=== PATIENT | female | born 1975 | race African-American/Black ===

== ENCOUNTER 2017-05-20 14:59 | Emergency (ER) | payer SELFPAY ==
[2017-05-20] MEDS ORDERED: ISOVUE-370 76%-LOCM 1 ML ONE (15:03)
--- NOTE | 2017-05-20 15:35 | RAD ---
PORTABLE CHEST ONE VIEW: 05/20/2017 3:17 p.m. HISTORY: Nausea and vomiting. COMPARISON: 02/28/2017 FINDINGS: The heart is normal. The lungs are well expanded without focal areas of consolidation, pneumothorax , or pleural effusions. IMPRESSION: No radiographic evidence of acute cardiopulmonary process. POS: [facility]
[2017-05-20] MEDS ORDERED: Morphine 2 MG/ML SYRINGE ONE (15:59)
[2017-05-20] MEDS ORDERED: Ondansetron HCl/PF 4 MG/2 ML Vial ONE (15:59)
[2017-05-20] MEDS ORDERED: hydrALAZINE 20 MG/ML VIAL ONE ×2 (16:07→16:56)
[2017-05-20 16:39] LABS: #Basophils 0.1 thou/uL (0.0-0.2); #Lymphocytes 4.2 thou/uL (1.20-3.40); #Monocytes 0.9 thou/uL (0.11-0.59); #Neutrophils 6.8 thou/uL (1.40-6.50); %Basophils 0.6 % (0.0-1.0); %Eosinophils 0.3 % (0.0-10.0); %Lymphocytes 35.2 % (21.0-51.0); %Monocytes 7.7 % (0.0-10.0); Hematocrit 35.5 % (36.0-47.0); Mean Platelet Volume 6.6 fL (7.4-10.4); Red Blood Cell (RBC) Count 3.92 mill/uL (4.20-5.40)
[2017-05-20 16:48] LABS: PTT 28.3 SEC (22.9-36.1); Prothrombin Time 13.8 SEC (12.0-14.7)
[2017-05-20 16:49] LABS: Anion Gap 8 mmol/L (-14-95); T. Carbon Dioxide 22.7 mmol/L (1.0-85.0); pH (Venous) 7.473 (7.35-7.45); vO2 Saturation-calc 86.6 % (0.0-100.0)
[2017-05-20 17:04] LABS: ALT (SGPT) 14 U/L (8-55); AST (SGOT) 14 U/L (5-34); Alkaline Phosphatase 82 U/L (40-150); Anion Gap 15 mmol/L (10-20); BUN (Urea Nitrogen) 27 mg/dL (7.0-18.7); Bilirubin, Total 0.4 mg/dL (0.2-1.2); CK (CPK) 146 U/L (29-168); Calc. Creatinine Clearance 0 mL/min (70-130); Calcium 9.2 mg/dL (7.8-10.44); Carbon Dioxide 21 mmol/L (22-29); Chloride 102 mmol/L (98-107); Estimated GFR-MDRD 51; Globulin 3.6 g/dL (2.4-3.5); Lipase 10 U/L (8-78); Protein, Total 7.2 g/dL (6.0-8.3)
[2017-05-20 17:08] LABS: Troponin I Less than 0.010 ng/mL (< 0.028)
[2017-05-20] MEDS ORDERED: niCARdipine 20MG In NaCl 0 MG/0 ML BAG ONE (17:08)
--- NOTE | 2017-05-20 17:41 | CT ---
CONTRAST ENHANCED CT IMAGES OF THE ABDOMEN AND PELVIS: History: Nausea and vomiting for three days with abdominal pain and right sided flank pain. Technique: Contrast enhanced CT images of the abdomen and pelvis were obtained. Unfortunately oral c ontrast was not given. This does decrease the sensitivity for detection of pathology. FINDINGS: The lung bases are unremarkable. No evidence of free intraperitoneal air is seen. The liver and spleen are unremarkable. The gallbladder has been surgically removed. The pancreas is unremarkable. Adrenal glands are unremarkable. Kidneys are unremarkable with no evidence of calculi. No evidence of hydroureteronephrosis is seen. No dilated loops of small bowel is seen. No definite evidence of colonic obstruction seen. A normal appendix is visualized and is unremarkabl e. IMPRESSION: 1. Unremarkable contrast enhanced CT images of the abdomen and pelvis. POS: [facility]
[2017-05-20 17:46] LABS: Bilirubin Negative (Negative); Blood, Urine Small (Negative); Glucose, Urine (Dipstick) 250 mg/dL (Negative); Ketone, Urine Trace mg/dL (Negative); Nitrite Negative (Negative); Protein, Urine (Dipstick) 300 mg/dL (Neg-Trace); Urobilinogen 0.2 mg/dL (0.2-1.0)
[2017-05-20 17:47] LABS: Bacteria/HPF 1+ HPF (None Seen); Hyaline Casts/LPF 4-6 HYALINE CAST LPF (0-3 Hyaline)
[2017-05-20 18:02] LABS: Renal Epithelial None Seen HPF (0-3); Transitional Epithelial NONE SEEN HPF (0-3)
== END 2017-05-20 18:24 | disposition home or self-care (01) ==
LOC: ERS 14:59
DX: R10.11 Right upper quadrant pain (principal); E86.0 Dehydration; I10 Essential (primary) hypertension; R11.2 Nausea with vomiting, unspecified; I48.91 Unspecified atrial fibrillation; E11.9 Type 2 diabetes mellitus without complications; Z79.4 Long term (current) use of insulin; Z79.899 Other long term (current) drug therapy
CPT/HCPCS: 36415; 36416; 71010; 74177; 80053; 81003; 81015; 82010; 82330; 82553; 82803; 83690; 83880; 84484; 84703; 85025; 85610; 85730; 93005; 96361; 96374; 96375; 96376; J0360; J2270; J2405

== ENCOUNTER 2017-05-22 07:02 | Inpatient (IN) | payer SELFPAY ==
[2017-05-22] MEDS ORDERED: HYDROcodone/Acetaminophen 10/325 mg Tablet ONE (07:25)
[2017-05-22] MEDS ORDERED: Ondansetron ODT 8 MG TAB ONE (07:25)
[2017-05-22 08:01] LABS: #Basophils 0.1 thou/uL (0.0-0.2); #Eosinphils 0.1 thou/uL (0.0-0.7); #Lymphocytes 4.6 thou/uL (1.20-3.40); #Neutrophils 4.8 thou/uL (1.40-6.50); %Basophils 1.1 % (0.0-1.0); %Eosinophils 1.1 % (0.0-10.0); %Lymphocytes 43.4 % (21.0-51.0); %Monocytes 8.9 % (0.0-10.0); Hematocrit 36.3 % (36.0-47.0); Mean Platelet Volume 6.8 fL (7.4-10.4); Red Blood Cell (RBC) Count 3.92 mill/uL (4.20-5.40); White Blood Cell (WBC) Count 10.6 thou/uL (4.8-10.8)
[2017-05-22 08:25] LABS: ALT (SGPT) 13 U/L (8-55); AST (SGOT) 16 U/L (5-34); Alkaline Phosphatase 78 U/L (40-150); Anion Gap 15 mmol/L (10-20); BUN (Urea Nitrogen) 29 mg/dL (7.0-18.7); Bilirubin, Total 0.4 mg/dL (0.2-1.2); Calc. Creatinine Clearance 0 mL/min (70-130); Calcium 9.1 mg/dL (7.8-10.44); Carbon Dioxide 23 mmol/L (22-29); Chloride 100 mmol/L (98-107); Estimated GFR-MDRD 38; Globulin 3.9 g/dL (2.4-3.5); Lipase 12 U/L (8-78); Protein, Total 7.5 g/dL (6.0-8.3)
--- NOTE | 2017-05-22 08:55 | ULT ---
BILATERAL RENAL ULTRASOUND: History: Right flank pain. FINDINGS: The right kidney measures 11.2 cm in length and the left kidney measures 10.7 cm in length. No focal mass or hydronephrosis is seen on either side. Cortical echogenicity and thickness are normal. No s hadowing calculi are noted. The urinary bladder is unremarkable. IMPRESSION: Unremarkable exam. POS: [facility]
[2017-05-22 09:52] LABS: Bilirubin Negative (Negative); Blood, Urine Moderate (Negative); Glucose, Urine (Dipstick) 100 mg/dL (Negative); Ketone, Urine 15 mg/dL (Negative); Nitrite Negative (Negative); Protein, Urine (Dipstick) 300 mg/dL (Neg-Trace); Urobilinogen 0.2 mg/dL (0.2-1.0)
[2017-05-22 09:54] LABS: Bacteria/HPF 3+ HPF (None Seen)
[2017-05-22 10:10] LABS: Hyaline Casts/LPF NONE SEEN LPF (0-3 Hyaline); Renal Epithelial None Seen HPF (0-3); Transitional Epithelial NONE SEEN HPF (0-3)
[2017-05-22] MEDS ORDERED: Morphine 2 MG/ML SYRINGE ONE (10:30)
[2017-05-22] MEDS ORDERED: cefTRIAXone\\ROCEPHIN 1 GM VIAL ONE (10:30)
[2017-05-22] MEDS ORDERED: Sodium Chloride 0.9% 100 ML ONE (10:34)
[2017-05-22] MEDS ORDERED: Amlodipine 5 MG TAB ONE ×2 (11:27)
[2017-05-22] MEDS ORDERED: Lisinopril 10 MG TAB ONE (11:27)
[2017-05-22] MEDS ORDERED: Metoprolol Tartrate 50 MG TAB ONE (11:27)
[2017-05-22] MEDS ORDERED: Labetalol HCl 100 MG/20 ML VIAL ONE (12:09)
[2017-05-22] MEDS ORDERED: cloNIDine 0.1 MG TAB ONE (12:09)
--- NOTE | 2017-05-22 12:31 | CON ---
DATE OF CONSULTATION: 05/22/2017 NEPHROLOGY CONSULTATION REASON FOR CONSULTATION: Elevated creatinine. HISTORY OF PRESENT ILLNESS: This is a 42-year-old female followed by Dr. Pal, presented to the hospital with elevated creatinine and possible UTI. The patient had a CAT scan with contrast two da ys ago. Her baseline creatinine on 05/20/2017 was 1.3 and is 1.8 today. The patient last had an ep isode of acute kidney injury in February with a creatinine of 1.2, baseline in 2014 was 0.9. The martita ent denies headache, numbness, tingling or weakness. PAST MEDICAL HISTORY: Significant for hypertension, diabetes mellitus, obesity, atrial fibrillation , ablation, cholecystectomy, and . HOME MEDICATIONS: List reviewed. HOSPITAL MEDICATIONS: List reviewed. ALLERGIES: Reviewed. REVIEW OF SYSTEMS: A 15-point review of systems was performed and negative except positives noted a lianet. GENERAL: Weakness- HEAD: Headache- NECK: No swelling or lumps. NOSE: No epistaxis or discharge. EYES: No diplopia or pain. 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 NEUROPSYCHIATRIC SYSTEMS: No suicidal ideation. No ideation. SKIN: Denies any rash or ulcer. CONSTITUTIONAL: No fever or chills. PHYSICAL EXAMINATION: GENERAL: The patient is awake and alert. VITAL SIGNS: Afebrile, pulse 75, breathing at 16, blood pressure was 200/120, pulse 90. OBJECTIVE: See above. GENERAL APPEARANCE AND MENTAL STATUS: Fair. HEAD/NECK: Normocephalic. Atraumatic. EYES: EOMI. No deformity. EARS: Clear. No ulcers. NOSE: Intact. No lesions. MOUTH: Clear. No discharge. THROAT: Clear. No exudate. LUNGS: Clear. No crackles. CARDIAC: S1, S2. No rub. ABDOMEN: Benign. BS+. GENITALIA/RECTUM: Alicia absent. BACK/EXTREMITIES: Edema 0+ Ulcer- NEUROLOGICAL: Alert and motor intact. SKIN: Rash- Bruise- LYMPHATICS: Edema- Ulcer- LABORATORY DATA: Creatinine is 1.8. ASSESSMENT AND PLAN: 1. Acute kidney injury with chronic kidney disease, most likely due to hypertension as well as cont rast. Continue gentle hydration. 2. Hypertension. Start home medication and follow the blood pressure closely. The patient needs t o be monitored in the ICU. 3. Anemia, stable. 4. Medications based on glomerular filtration rate are appropriate. 5. Proteinuria, likely because of diabetic nephropathy. The patient will need close followup.
[2017-05-22] MEDS ORDERED: niCARdipine 20MG In NaCl 0 MG/0 ML BAG ONE (13:15)
[2017-05-22] MEDS ORDERED: niCARdipine HCl 50 MG in Sodium Chloride 0.9% 250 ML 230 ML IVPB SCH (13:15)
[2017-05-22] MEDS ORDERED: niCARdipine 20MG In NaCl 20 MG/200 ML BAG ONE (13:16)
[2017-05-22] MEDS ORDERED: Ondansetron HCl/PF 4 MG/2 ML Vial IVP PRN (14:06)
[2017-05-22] MEDS ORDERED: Metoclopramide HCl 10 MG/2 ML VIAL IVP PRN (14:06)
[2017-05-22] MEDS ORDERED: Dextrose 50% Abboject 50 ML SYRINGE SLOW IVP PRN (14:06)
[2017-05-22] MEDS ORDERED: Acetaminophen 325 MG TAB PO PRN (14:06)
[2017-05-22] MEDS ORDERED: Sodium Chloride 0.65% Nasal 44 ML BOT EA NARE PRN (14:06)
[2017-05-22] MEDS ORDERED: Senokot 8.6 MG TAB PO PRN (14:06)
[2017-05-22] MEDS ORDERED: Loperamide HCl 2 MG CAP PO PRN (14:06)
[2017-05-22] MEDS ORDERED: Ondansetron ODT 4 MG TAB PO PRN (14:06)
[2017-05-22] MEDS ORDERED: Zolpidem Tartrate 5 MG TAB PO PRN (14:06)
[2017-05-22] MEDS ORDERED: cloNIDine 0.1 MG TAB PO PRN (14:06)
[2017-05-22] MEDS ORDERED: Dextrose 5% in Water 1,000 ML IV PRN (14:06)
[2017-05-22] MEDS ORDERED: Mag-Al 1200 mg/1200 mg/30 ML UDCUP PO PRN (14:06)
[2017-05-22] MEDS ORDERED: Insulin Regular 300 UNITS/3 ML VIAL SC PRN (14:06)
[2017-05-22] MEDS ORDERED: Labetalol HCl 100 MG/20 ML VIAL SLOW IVP PRN (14:06)
[2017-05-22] MEDS ORDERED: Diabetic Tussin 200 MG/10 ML UDCUP PO PRN (14:06)
[2017-05-22] MEDS ORDERED: Milk Of Magnesia 30 ML UDCUP PO PRN (14:06)
[2017-05-22] MEDS ORDERED: Chloraseptic Spray 180 ml Bottle PO PRN (14:06)
[2017-05-22] MEDS ORDERED: Eucerin (Mineral Oil/Petrolatum,White) 30 gm Jar TOP PRN (14:06)
[2017-05-22] MEDS ORDERED: hydrALAZINE 20 MG/ML VIAL SLOW IVP PRN (14:06)
[2017-05-22] MEDS ORDERED: Artificial Tear Sol 15 ML BOT EA EYE PRN (14:06)
[2017-05-22] MEDS ORDERED: Dextrose 5 % And 0.9 % NaCl 1,000 ML IV SCH (14:06)
[2017-05-22 14:18] VITALS: BMI 41.5
--- NOTE | 2017-05-22 14:30 | HP ---
PRIMARY CARE PHYSICIAN: Dr. Viviana Perez. REASON FOR ADMISSION: Hypertensive emergency, nausea, vomiting. HISTORY OF PRESENT ILLNESS: A 42-year-old -[place] female with a history of diabetes type 2, hypertension and morbid obesity who came to the emergency room with complaint of right flank pain. The patient reports that this pain is ongoing for about a month. The patient came to the emergency room 2 days ago. At that time, CT abdomen and pelvis stone protocol was done, which was negative for any acute process. The patient had leukocytosis and abnormal urinalysis and that is why CT of the abdomen and pelvis was done. The patient denies by herself any UTI symptoms. She denies any dysuria, hematuria or increased frequency, but she has right flank pain which is getting worse with movement. She denies any back pain. She denies any fever or chills. She denies any chest pain, palpitation or shortness of breath. Patient reports that for the last 4 days, she is not able to keep anything down because of nausea and vomiting and she was not taking any blood pressure medication. Patient was on several blood pressure medications, but about a week ago she stopped taking lisinopril because that was causing a swelling of her face. Initially when this patient came to emergency room, her blood pressure was 142/ 93 and pulse was 129. The patient was given IV fluid and after that blood pressure, the patient's blood pressure was spiking to maximum 224/150. This patient was not able to be managed at the medical floor and IMCU as well and that is why we decided to keep this patient in ICU for Cardene drip and better blood pressure control and symptoms control. The patient was seen in the emergency room. At that time, patient's pain was about 5/10 in intensity, but with no movement, the patient's pain was about 2/ 10 in intensity. Today in the emergency room, patient had renal ultrasound which was negative for any acute process. Dr. Rendon, supervisor electronics processing already evaluated this patient. PAST MEDICAL HISTORY: Diabetes type 2, hypertension, diabetes, gastroparesis, paroxysmal atrial fibrillation, obesity, dyslipidemia. PAST SURGICAL HISTORY: Uterine ablation, cholecystectomy, x2. PAST PSYCHIATRIC HISTORY: Reviewed and negative. SOCIAL HISTORY: Patient lives at home with the family. No history of tobacco, alcohol or illicit drug abuse. FAMILY HISTORY: Diabetes, hypertension runs among several family members. No strong family history of stroke or coronary artery disease. ALLERGIES: Patient reports that nowadays LISINOPRIL makes her swelling of face. EMERGENCY ROOM COURSE: Patient has received lisinopril 5 mg, Cardene drip started, labetalol 20 mg IV push, clonidine 0.1 mg, metoprolol tartrate 100 mg, amlodipine 10 mg, patient has received 2 liters of IV fluids, Rocephin 1 gram, morphine 4 mg, [place] 10, and Zofran 8 mg. CURRENT HOME MEDICATIONS: The patient is taking metoprolol tartrate 100 mg twice daily, NovoLog insulin 15 units subQ b.i.d., Lipitor 40 mg p.o. at bedtime , metformin 500 mg p.o. b.i.d., amlodipine 10 mg p.o. daily, lisinopril 5 mg p.o. daily (this medication, the patient stopped taking about a week ago), Tylenol #3 one or two tablets q.4 hourly p.r.n., Zofran 4 mg q.6 hourly p.r.n. REVIEW OF SYSTEMS: The following complete review of systems was negative, unless otherwise mentioned in the HPI or below: Constitutional: Weight loss or gain, ability to conduct usual activities. Skin: Rash, itching. Eyes: Double vision, pain. ENT/Mouth: Nose bleeding, neck stiffness, pain, tenderness. Cardiovascular: Palpitations, dyspnea on exertion, orthopnea. Respiratory: Shortness of breath, wheezing, cough, hemoptysis, fever or night sweats. Gastrointestinal: Poor appetite, abdominal pain, heartburn, nausea, vomiting, constipation, or diarrhea. Genitourinary: Urgency, frequency, dysuria, nocturia. Musculoskeletal: Pain, swelling. Neurologic/Psychiatric: Anxiety, depression. Allergy/Immunologic: Skin rash, bleeding tendency. Please see my HPI for pertinent positives and negatives. All other review of system reviewed and negative except as mentioned in the HPI. PHYSICAL EXAMINATION: VITAL SIGNS: Most recent vital signs, blood pressure 224/150, pulse 114, respiratory rate 16, temperature 98.7, saturation 100% on room air. Weight 108.86 kilograms. GENERAL: Patient is currently alert, awake, no obvious acute distress. HEAD: Normocephalic, atraumatic. EYES: Pupils round, reactive to light. Extraocular muscles intact. ENT: Oropharynx within normal limits. Moist mucous membranes. No oral lesions. No pharyngeal erythema, no exudate. NECK: Supple. Range of motion is normal. No meningeal signs of irritation. LUNGS: Clear to auscultation without any rhonchi or rales. CARDIAC: S1, S2 regular without any murmur. ABDOMEN: Soft, bowel sounds present, nontender, nondistended. No organomegaly , no mass, no suprapubic tenderness. BACK: Unremarkable. CVA tenderness noted on the right side. EXTREMITIES: Upper extremity: Passive movement of all joints are normal. Lower extremity, no edema. Good peripheral pulsation. SKIN: No skin rash. HEMATOLOGICAL: No lymphadenopathy. PSYCHIATRIC: Normal affect. SIGNIFICANT LABS: monitoring engineer showing normal sinus rhythm. Renal ultrasound is unremarkable. CT abdomen and pelvis stone protocol was done a couple of days ago that was negative for any obstructive uropathy. CBC: WBC 10.6, hemoglobin 11.9, platelets 387. BMP: Sodium 134, potassium 3.8 , chloride 100, carbon dioxide 23, BUN 29, creatinine 1.80, glucose 138, calcium 9.1. LFT: AST 16, ALT 13, alkaline phosphatase 78, albumin 3.6, lipase 12. Urinalysis suggestive of urinary tract infection. ASSESSMENT AND PLAN/IMPRESSION: 1. Hypertensive emergency. This patient has very difficult to manage blood pressure on regular floor and that is why we will keep this patient in ICU for close monitoring. We tried to control blood pressure in the emergency room, but her blood pressure was keep rising. At this point, we will start Cardene drip and will also use hydralazine, labetalol, and clonidine on a p.r.n. basis, and will titrate Cardene drip in CCU whenever blood pressure is well controlled without Cardene drip for a few hours, then we will consider transferring her to medical floor. 2. Acute on chronic kidney failure. This patient's creatinine is elevated from 1.37-1.80. The patient has received 2 liters of fluid. I will continue with dextrose with NS at 50 mL per hour given patient is not able to keep anything down and she has ketosis. Dr. Rendon already evaluated this patient and renal ultrasound result is unremarkable. Most likely, the patient's blood pressure is high because of uncontrolled hypertension as well as volume depletion. 3. Nausea, vomiting, most likely related with underlying urinary tract infection versus diabetes gastroparesis. At this point, we will continue with symptomatic treatment with Zofran and Reglan 10 mg IV q.6 hourly p.r.n. and Protonix 40 mg IV daily. 4. Flank pain, etiology uncertain, but could be related with urinary tract infection. We will control her pain with morphine 4 mg IV q.4 hourly p.r.n. for pain. 5. Urinary tract infection. We will continue with Rocephin 1 gram q.24 hours. 6. Diabetes type 2. We will continue with insulin as per sliding scale protocol. Diabetic diet will be given when patient tolerates p.o. intake. 7. Dehydration ketosis and that is why we will continue with dextrose with NS at 50 mL per hour. 8. Dyslipidemia. We will continue Lipitor 40 mg p.o. at bedtime. 9. Morbid obesity. Dietary education given, weight loss education given. Healthy lifestyle measures discussed with the patient. 10. Deep venous thrombosis prophylaxis, Lovenox 40 mg subQ daily. 11. Gastrointestinal prophylaxis, Protonix 40 mg IV daily. 12. Code status: The patient is FULL CODE. She does not have any surrogate decision maker. Disposition plan based on clinical course. [facility]
[2017-05-22] MEDS ORDERED: Sodium Chloride 0.9% 1,000 ML IV SCH (15:30)
[2017-05-22] MEDS ORDERED: Carvedilol 6.25 MG TAB PO SCH ×2 (15:30→17:00)
--- NOTE | 2017-05-22 16:18 | CON ---
DATE OF CONSULTATION: 05/22/2017 SERVICE: Pulmonary Medicine. REASON FOR CONSULTATION: ICU patient. HISTORY OF PRESENT ILLNESS: The patient is a 42-year-old -[place] female with past medical history significant for hypertension. Roughly 1 week ago, she was around a niece who ended up with an upper respiratory tract infection with a lot of congestion in the face. A week later, the patien t started having nausea, vomiting, and diarrhea. She was unable to keep down her home p.o. blood pr essure medications. Whenever she cannot take her blood pressure medication, she will have rebound h ypertension. She currently denies any fevers or chills. This was all getting better, but then she came to the emergency department primarily because of back discomfort. This has been going on and o ff for several months. More recently over the past 2-3 weeks, it has become more constant. Otherwi se, she was in her usual state of health. She has no chest discomfort, difficulty breathing, belly discomfort. PAST MEDICAL HISTORY: 1. Type 2 diabetes mellitus. 2. Gastroparesis. 3. Hypertension. 4. Dyslipidemia. 5. Type 2 diabetes mellitus. 6. Morbid obesity. 7. Paroxysmal atrial fibrillation. PAST SURGICAL HISTORY: 1. Ablation of the uterus. 2. Cholecystectomy. 3. section x2. SOCIAL HISTORY: Negative for tobacco, alcohol or illicit drug use presently. She lives at home wit h her family. She has no exposure to chemicals, dust asbestos or tuberculosis. FAMILY HISTORY: Noncontributory. ALLERGIES: LISINOPRIL causes her face to swell. MEDICATIONS: List of her inpatient medications was reviewed. Multiple updates were made. REVIEW OF SYSTEMS: General, head, eyes, nose, throat, cardiovascular, respiratory, GI, , musculos keletal, neurologic and skin is negative except as mentioned in the HPI. PHYSICAL EXAMINATION: VITAL SIGNS: Afebrile, pulse 89, blood pressure 166/97, respirations 18, and saturation 98% on room air. GENERAL: Patient is awake, alert, in no apparent distress. LUNGS: Excellent air entry with no prolonged expiratory phase, wheezing, rhonchi or crackles. HEART: Normal rate, regular. ABDOMEN: Soft, nontender, nondistended, bowel sounds positive. She does not have any costovertebra l angle tenderness. With palpation over the paraspinous muscles on the right, she has extraordinary discomfort that is reproducible. I do not feel any masses and certainly no erythema or heat to thi s region. MUSCULOSKELETAL: No cyanosis or clubbing. No pitting in the bilateral lower extremities. NEUROLOGIC: Grossly normal. LABORATORY DATA: WBC 10.6 with normal differential. Hemoglobin 11.9 and stable, platelets 387,000. INR 1.0. A pH 7.47, pCO2 29, pO2 of 48. Creatinine up trending to 1.80. BUN 29 and gently up tr ending. Basic metabolic profile is otherwise unremarkable. Sodium is 134. Ionized calcium is low. Cardiac enzymes x1 were negative 2 days ago. Liver function studies are unremarkable. Urine preg zara was negative 2 days ago. BNP 72. Urinalysis is positive for RBCs, WBCs, squamous and 3+ bact eria. That being said, leukocyte esterase and nitrites are both negative. Blood was moderate. Ket ones are positive as are glucose and protein. IMAGIN. CT of the abdomen and pelvis recently demonstrated no evidence of acute intra-abdominal process or lower lung issue. 2. Ultrasound of the kidneys demonstrates no evidence of hydronephrosis or stones. 3. Chest x-ray from 05/20/2017 demonstrates no acute cardiopulmonary abnormality. Low lung volumes are evident. ASSESSMENT: 1. Hypertension. 2. Gastroenteritis. 3. Dehydration. 4. Acute kidney injury. 5. Type 2 diabetes mellitus. 6. Gastroparesis. PLAN: We will continue her p.o. medications and provide her with nausea medicine if needed. Once s he is back on her home p.o. medications, we will transition her off of the blood pressure drip. We have absolutely no evidence of pyelonephritis. The urinalysis had negative leukocyte esterase and n itrites. Furthermore, likely this was supposed to be clean-catch urine and it was not a catheterize d specimen. There is significant amount of squamous epithelial cells, likely suggesting this is con tamination. We will follow up on the culture results, but for the time being, I am going to discont inue antibiotics. I will continue to follow while the patient remains in this location.
[2017-05-22] MEDS: HYDROcodone/Acetaminophen 5/325 mg Tablet PO PRN (18:37)
[2017-05-22] MEDS ORDERED: FLU VACC QS2017-18 36 mo. & older 0.5 ML SYRINGE IM ONE (21:00)
[2017-05-22] MEDS: Atorvastatin Calcium 40 MG TAB PO SCH (21:55)
[2017-05-23] MEDS: HYDROcodone/Acetaminophen 5/325 mg Tablet PO PRN (04:39)
[2017-05-23 07:16] LABS: Anion Gap 10 mmol/L (10-20); BUN (Urea Nitrogen) 25 mg/dL (7.0-18.7); Calc. Creatinine Clearance 112 mL/min (70-130); Calcium 8.3 mg/dL (7.8-10.44); Carbon Dioxide 25 mmol/L (22-29); Chloride 105 mmol/L (98-107); Estimated GFR-MDRD 63
[2017-05-23] MEDS: Amlodipine 10 MG TAB PO SCH (08:25)
[2017-05-23] MEDS: hydrALAZINE 25 MG TAB PO SCH ×3 (08:25→20:17)
[2017-05-23] MEDS: Carvedilol 25 MG TAB PO SCH ×2 (08:25→16:36)
[2017-05-23] MEDS: Enoxaparin Sodium 40 MG/0.4 ML SYRINGE SC SCH (08:26)
[2017-05-23] MEDS ORDERED: Pantoprazole 40 MG VIAL IVP SCH (09:00)
--- NOTE | 2017-05-23 10:10 | PDOC.PN ---
- Subjective Encounter Start Date: 05/23/17 Encounter Start Time: 08:30 -: old records requested/rev Pt seen and examined, chart reviewed in its entirety. This is my first visit with this patient. No F/C, no N/V/d/c at present, nauseated earlier. PT with back pain, wants to get out of bed. right paraspinous muscles tender, no CVA tenderness, no hematuria or dysuria 10 point ROS performed and neg for all systems except as above - Objective Resuscitation Status: Resuscitation Status FULL:Full Resuscitation MAR Reviewed: Yes Vital Signs & Weight: Vital Signs (12 hours) Temp Pulse Resp BP Pulse Ox 05/23/17 08:25 102 H 168/91 H 05/23/17 08:00 98.2 F 102 H 14 95 05/23/17 07:38 184/99 H 05/23/17 06:27 172/89 H 05/23/17 04:00 98.3 F 05/23/17 00:00 97.9 F Most Recent Monitor Data Heart Rate from ECG 93 NIBP 172/89 NIBP BP-Mean 122 Respiration from ECG 15 SpO2 95 I&O: 05/22/17 05/23/17 05/24/17 06:59 06:59 06:59 Intake Total 2690 Output Total 950 Balance 1740 Result Diagrams: 05/22/17 07:47 05/23/17 06:34 Additional Labs: Accuchecks 05/23/17 05/22/17 05/22/17 06:29 21:55 17:31 POC Glucose 135 H 205 H 144 H Radiology Reviewed by me: Yes EKG Reviewed by me: Yes Phys Exam - Physical Examination Constitutional: NAD HEENT: PERRLA, moist MMs, sclera anicteric, oral pharynx no lesions Neck: no nodes, no JVD, supple, full ROM Respiratory: no wheezing, no rales, no rhonchi, clear to auscultation bilateral Cardiovascular: RRR, no significant murmur, no rub Gastrointestinal: soft, non-tender, no distention, positive bowel sounds Musculoskeletal: no edema, pulses present Neurological: non-focal, normal sensation, moves all 4 limbs right lumbar paraspinous muscles tender, reprodices back pain Lymphatic: no nodes Psychiatric: normal affect, A&O x 3 Skin: no rash, normal turgor, cap refill <2 seconds Dx/Plan (1) Essential hypertension Code(s): I10 - ESSENTIAL (PRIMARY) HYPERTENSION Status: Acute Comment: increase Coreg to 25 BID, added in po hydralazine, ok to trnasfer to medical floor (2) Hyperglycemia due to type 2 diabetes mellitus Code(s): E11.65 - TYPE 2 DIABETES MELLITUS WITH HYPERGLYCEMIA Status: Chronic Qualifiers: 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 Not Pyelonephritis - Plan cont current plan of care, PT/OT, out of bed/ambulate * .
[2017-05-23] MEDS ORDERED: Ibuprofen 600 MG TAB PO PRN (10:13)
--- NOTE | 2017-05-23 10:15 | PRG ---
DATE OF SERVICE: 05/23/2017 SERVICE: Pulmonary Medicine INTERVAL HISTORY: The patient continues to have back discomfort. Otherwise, there has been no inte rval change in her condition. She only received 1 dose of p.r.n. blood pressure medications overnig ht. She currently denies any fevers, chills, nausea, vomiting, diarrhea or chest discomfort. PHYSICAL EXAMINATION: VITAL SIGNS: Afebrile, pulse 102, blood pressure 168/91, respirations 14, saturation 95% on room ai r. GENERAL: The patient is awake, alert, no apparent distress. LUNGS: Excellent air entry with no prolonged expiratory phase, wheezing, rhonchi or crackles. HEART: Normal rate, regular. ABDOMEN: Soft, nontender, nondistended. Bowel sounds positive. MUSCULOSKELETAL: No cyanosis or clubbing. No pitting in the bilateral lower extremities. NEUROLOGIC: Grossly nonfocal. LABORATORY DATA: Creatinine 1.15 and down trending. Basic metabolic profile is otherwise unremarka ble. Beta hydroxybutyrate acid is 0.65. Urine culture is negative to date. ASSESSMENT: 1. Hypertension. 2. Gastroenteritis, resolved. 3. Dehydration, resolved. 4. Acute kidney injury, resolved. 5. Type 2 diabetes mellitus. 6. Gastroparesis. PLAN: The patient can be transitioned to the medical unit. I will continue to follow for 1 additio day. The back pain is chronic based on what the patient is suggesting, it is just a little wors e than usual. She has right-sided paraspinous tenderness. This is likely a muscular issue. I suggested to the patient that if it continues to bother her she should seek medical attention in t he outpatient setting from her primary care physician.
[2017-05-23] MEDS: Insulin Regular 300 UNITS/3 ML VIAL SC PRN ×2 (10:40→17:03)
--- NOTE | 2017-05-23 10:40 | PRG ---
DATE OF SERVICE: 05/23/2017 SUBJECTIVE: A 42-year-old female being seen for acute kidney injury. The patient denies any nausea , vomiting or chest pain. PHYSICAL EXAMINATION: GENERAL: Patient is awake, alert. VITAL SIGNS: Afebrile, pulse 70, breathing at 16, blood pressure 125/70. GENERAL APPEARANCE AND MENTAL STATUS: Fair. HEAD/NECK: Normocephalic. Atraumatic. EYES: EOMI. No deformity. EARS: Clear. No ulcers. NOSE: Intact. No lesions. MOUTH: Clear. No discharge. THROAT: Clear. No exudate. LUNGS: Clear. No crackles. CARDIAC: S1, S2. No rub. ABDOMEN: Benign. BS+. GENITALIA/RECTUM: Alicia absent. BACK/EXTREMITIES: Edema 0+ Ulcer- NEUROLOGICAL: Alert and motor intact. SKIN: Rash- Bruise- LYMPHATICS: Edema- Ulcer- LABORATORY DATA: Show creatinine 1.1. ASSESSMENT AND RECOMMENDATIONS: 1. Acute kidney injury, improved. 2. Hypertension, improved. 3. Anemia, stable. 4. Chronic kidney disease stage 3, stable. No indication for dialysis. I will sign off on this pa tient. Please reconsult as needed.
[2017-05-23] MEDS ORDERED: cefTRIAXone\\ROCEPHIN 1 GM, Admixture Fee 1 EACH in Sodium Chloride 0.9% 100 ML IVPB SCH (11:00)
[2017-05-23 12:05] LABS: #Eosinphils 0.2 thou/uL (0.0-0.7); #Monocytes 0.5 thou/uL (0.11-0.59); #Neutrophils 4.4 thou/uL (1.40-6.50); %Basophils 0.5 % (0.0-1.0); %Eosinophils 1.9 % (0.0-10.0); %Lymphocytes 37.3 % (21.0-51.0); %Monocytes 5.9 % (0.0-10.0); Hematocrit 31.2 % (36.0-47.0); Mean Platelet Volume 6.9 fL (7.4-10.4); Red Blood Cell (RBC) Count 3.38 mill/uL (4.20-5.40); White Blood Cell (WBC) Count 8.1 thou/uL (4.8-10.8)
[2017-05-23 12:21] LABS: Anion Gap 10 mmol/L (10-20); BUN (Urea Nitrogen) 27 mg/dL (7.0-18.7); Calc. Creatinine Clearance 84 mL/min (70-130); Carbon Dioxide 26 mmol/L (22-29); Chloride 103 mmol/L (98-107); Estimated GFR-MDRD 46
[2017-05-23] MEDS: Cyclobenzaprine 10 MG TAB PO SCH ×2 (16:33→20:17)
[2017-05-23] MEDS: Atorvastatin Calcium 40 MG TAB PO SCH (20:17)
[2017-05-24 09:02] LABS: Hematocrit 31.6 % (36.0-47.0); Mean Platelet Volume 6.8 fL (7.4-10.4); Red Blood Cell (RBC) Count 3.42 mill/uL (4.20-5.40); White Blood Cell (WBC) Count 9.1 thou/uL (4.8-10.8)
[2017-05-24 09:22] LABS: Anion Gap 15 mmol/L (10-20); BUN (Urea Nitrogen) 37 mg/dL (7.0-18.7); Calc. Creatinine Clearance 69 mL/min (70-130); Calcium 7.8 mg/dL (7.8-10.44); Carbon Dioxide 19 mmol/L (22-29); Chloride 104 mmol/L (98-107); Estimated GFR-MDRD 36
[2017-05-24 09:26] LABS: Neutrophil 27 % (42-75)
[2017-05-24] MEDS: Carvedilol 25 MG TAB PO SCH (09:39)
[2017-05-24] MEDS: Cyclobenzaprine 10 MG TAB PO SCH (09:39)
[2017-05-24] MEDS: hydrALAZINE 25 MG TAB PO SCH (09:39)
[2017-05-24] MEDS: Amlodipine 10 MG TAB PO SCH (09:39)
[2017-05-24] MEDS: Enoxaparin Sodium 40 MG/0.4 ML SYRINGE SC SCH (09:40)
--- NOTE | 2017-05-24 10:12 | PRG ---
DATE OF SERVICE: 05/24/2017 SERVICE: Pulmonary Medicine. INTERVAL HISTORY: The patient is doing fine from a respiratory standpoint. She is on room air. Th e muscle relaxers helped her back discomfort to a very significant degree. She denies any current f tenisha, chills, nausea, vomiting or diarrhea. She has no headache. Otherwise, she has returned to [facility] usual state of health and hoping to go home today. PHYSICAL EXAMINATION: VITAL SIGNS: Afebrile, pulse 98, blood pressure 136/86, respirations 16, saturation 99% on room air . GENERAL: Patient is awake, alert, in no apparent distress. LUNGS: Excellent air entry with no prolonged expiratory phase, wheezing, rhonchi or crackles. HEART: Normal rate, regular. ABDOMEN: Soft, nontender, nondistended. Bowel sounds positive. No costovertebral angle tenderness . She has point tenderness over the right paraspinous muscles. This is much improved. GENITOURINARY: No Alicia. NEUROLOGIC: Grossly nonfocal. MUSCULOSKELETAL: No cyanosis or clubbing. There is no pitting in the bilateral lower extremities. LABORATORY DATA: WBC 9.1, hemoglobin 10.2, platelets 318,000. Creatinine 1.86 and gently up trendi ng. Basic metabolic profile is otherwise unremarkable. ASSESSMENT: 1. Hypertension without any evidence of end organ damage. 2. Muscular back pain. 3. Gastroenteritis, resolved. 4. Dehydration, improving. 5. Acute kidney injury. 6. Type 2 diabetes mellitus. 7. Gastroparesis. PLAN: At this point, the patient has no further requirements for inpatient Pulmonary or Critical Ca re opinion. Please call if the patient has any deterioration clinically, but otherwise, we will sig n off. From a purely respiratory standpoint, she is stable for transition out of the hospital.
[2017-05-24 10:56] VITALS: BP 117/73; TEMP 97.8
--- NOTE | 2017-05-24 12:15 | DIS ---
PRIMARY CARE PHYSICIAN: Dr. Viviana Perez DATE OF ADMISSION: 05/22/2017 DATE OF DISCHARGE: 05/24/2017 DISCHARGE DISPOSITION: Home. PRIMARY DISCHARGE DIAGNOSES: 1. Hypertensive emergency, improved. 2. Nausea, vomiting controlled. 3. Acute on chronic kidney failure, baseline chronic kidney disease stage 2. 4. Musculoskeletal back pain. 5. Urinary tract infection ruled out. SECONDARY DISCHARGE DIAGNOSES: Diabetes type 2, dyslipidemia, morbid obesity, diabetic gastroparesis, history of paroxysmal atrial fibrillation. PRIMARY PROCEDURE/OPERATION: None. RADIOLOGICAL INVESTIGATION: Renal ultrasound was unremarkable. SIGNIFICANT LABS: WBC 9.1, hemoglobin 10.2, platelets 318. Sodium 133, potassium 4.8, BUN 37, creatinine 1.86, calcium 7.8. LFTs normal. Urinalysis suspected for UTI, beta hydroxybutyrate 0.19. Urine culture negative. DISCHARGE MEDICATIONS: Amlodipine 10 mg p.o. daily, Lipitor 40 mg p.o. at bedtime, Coreg 25 mg p.o. b.i.d., Flexeril 5 mg t.i.d. p.r.n., insulin 70/30, 30 units subcu b.i.d., Reglan 10 mg p.o. t.i.d. p.r.n., Catapres 0.1 mg q.4 hours p.r.n. for blood pressure more than 180, hydralazine 25 mg p.o. t.i.d. CONTRAINDICATIONS: None. CODE STATUS: FULL CODE. INPATIENT CONSULTANTS: Dr. Rendon was consulted while in hospital. Dr. Cedillo was consulted while in hospital. TEST RESULTS PENDING ON DISCHARGE: None. ALLERGIES: No known drug allergy. DISCHARGE PLAN: Post hospital, the patient will follow up with primary care physician and Dr. Rendon as instructed. HOSPITAL COURSE: The patient is a 42-year-old female, who was brought to the emergency room for nausea and vomiting. The patient was not able to keep anything down including medication for the last 3-4 days prior to coming to the hospital. The patient had recently full workup in the emergency room including CT of the abdomen and pelvis and chest x-ray which was unremarkable. During this admission, we did a renal ultrasound that was also normal. The patient was hydrated with IV fluids. She was treated symptomatically in the emergency room. The patient was having very high blood pressure and that is why she required ICU admission. We treated initially with Cardene drip that was discontinued afterwards. The patient's blood pressure was controlled with p.r.n. parenteral medications. During this admission, we adjusted blood pressure medication as above. The patient had acute kidney failure on top of chronic kidney disease stage 3 and we advised her to follow up with Dr. Rendon. This patient offered to stay 1 more day, but she does not want to stay in hospital, but she preferred to follow up with Dr. Rendon after discharge as she already has followup appointment with him as well. Initially, we treated her with Rocephin for a suspected UTI, but her cultures remain negative and antibiotic therapy was discontinued. During this admission, we modified her medication as above. We started Coreg 25 mg b.i.d., hydralazine added and the patient ran out of medication for amlodipine that was given. Overall, this patient is medically stable for discharge. The patient is seen and examined at bedside today. All review of systems reviewed and negative. PHYSICAL EXAMINATION: VITAL SIGNS: Currently, temperature 97.8, pulse 99, respiratory rate 18, saturation 97%, blood pressure 117/73, weight 242 pounds. GENERAL: The patient is currently alert, awake, no acute distress. HEAD: Normocephalic, atraumatic. EYES: Pupils round, reactive to light. Extraocular muscles intact. ENT: Oropharynx within normal limits. Moist mucous membranes. No oral lesions. No pharyngeal erythema and no exudate. NECK: Supple. LUNGS: Clear. CARDIAC: S1, S2 regular without any murmur. ABDOMEN: Soft and benign. EXTREMITIES: No edema. NEUROLOGIC: Nonfocal examination. Total time spent on discharge day 31 minutes MTDD
== END 2017-05-24 11:07 | disposition home or self-care (01) | DRG 305 ==
LOC: ERS 07:02 → CCU 13:51 → T4-A 05-23 15:07
PROVIDERS: ADMIT Internal Medicine; ATTEND Internal Medicine
DX: I16.1 Hypertensive emergency (principal); E11.21 Type 2 diabetes mellitus with diabetic nephropathy; N17.9 Acute kidney failure, unspecified; E11.65 Type 2 diabetes mellitus with hyperglycemia; K31.84 Gastroparesis; N18.3 Chronic kidney disease, stage 3 (moderate); Z68.41 Body mass index [BMI] 40.0-44.9, adult; E11.43 Type 2 diabetes mellitus with diabetic autonomic (poly)neuropathy; I12.9 Hypertensive chronic kidney disease with stage 1 through stage 4 chronic kidney disease, or unspecified chronic kidney disease; E86.0 Dehydration; I48.0 Paroxysmal atrial fibrillation; E11.22 Type 2 diabetes mellitus with diabetic chronic kidney disease; Z79.4 Long term (current) use of insulin; D63.1 Anemia in chronic kidney disease; E66.01 Morbid (severe) obesity due to excess calories; E78.5 Hyperlipidemia, unspecified; K52.9 Noninfective gastroenteritis and colitis, unspecified; M54.9 Dorsalgia, unspecified
CPT/HCPCS: 36415; 36416; 76770; 80048; 80053; 81003; 81015; 82010; 83690; 85025; 87086; 90471; 90682; 96361; 96365; 96375; G0008; J0360; J0696; J1650; J1815; J2270; J2405; J7050; Q2036

== ENCOUNTER 2017-07-13 12:56 | Emergency (ER) | payer MEDICAID, SELFPAY ==
[2017-07-13] MEDS ORDERED: Ondansetron ODT 4 MG TAB ONE (13:06)
[2017-07-13] MEDS ORDERED: Ondansetron HCl/PF 4 MG/2 ML Vial ONE (13:18)
[2017-07-13 13:28] LABS: #Eosinphils 0.1 thou/uL (0.0-0.7); #Lymphocytes 3.5 thou/uL (1.20-3.40); #Monocytes 0.9 thou/uL (0.11-0.59); #Neutrophils 4.1 thou/uL (1.40-6.50); %Basophils 0.4 % (0.0-1.0); %Eosinophils 0.6 % (0.0-10.0); %Lymphocytes 40.5 % (21.0-51.0); %Monocytes 10.4 % (0.0-10.0); Hematocrit 38.1 % (36.0-47.0); Mean Platelet Volume 6.9 fL (7.4-10.4); Red Blood Cell (RBC) Count 4.11 mill/uL (4.20-5.40); White Blood Cell (WBC) Count 8.6 thou/uL (4.8-10.8)
[2017-07-13 14:07] LABS: ALT (SGPT) 18 U/L (8-55); AST (SGOT) 20 U/L (5-34); Alkaline Phosphatase 84 U/L (40-150); Anion Gap 18 mmol/L (10-20); BUN (Urea Nitrogen) 25 mg/dL (7.0-18.7); Bilirubin, Total 0.5 mg/dL (0.2-1.2); Calc. Creatinine Clearance 0 mL/min (70-130); Calcium 8.8 mg/dL (7.8-10.44); Carbon Dioxide 24 mmol/L (22-29); Chloride 96 mmol/L (98-107); Estimated GFR-MDRD 32; Globulin 3.7 g/dL (2.4-3.5); Protein, Total 7.3 g/dL (6.0-8.3)
[2017-07-13] MEDS ORDERED: Acetaminophen 500 MG TAB ONE (14:22)
== END 2017-07-13 16:33 | disposition home or self-care (01) ==
LOC: ERS 12:56
DX: E86.0 Dehydration (principal); E11.9 Type 2 diabetes mellitus without complications; I48.91 Unspecified atrial fibrillation; I10 Essential (primary) hypertension; Z79.84 Long term (current) use of oral hypoglycemic drugs; Z79.82 Long term (current) use of aspirin; Z79.899 Other long term (current) drug therapy
CPT/HCPCS: 80053; 82010; 85025; 96361; 96374; J2405; Q0162

== ENCOUNTER 2017-08-30 18:00 | Observation (INO) | payer OTHER ==
[2017-08-30] MEDS ORDERED: Acetaminophen 500 MG TAB ONE (19:19)
--- NOTE | 2017-08-30 19:26 | RAD ---
TWO VIEWS OF THE CHEST 08/30/17 COMPARISON: 02/02/08. HISTORY: Cough for ten days. FINDINGS: Two views of the chest shows a normal sized cardiomediastinal silhouette. There are patchy opacities in the lungs, more prominent in the bases which were not seen on the prior radiograph. These may repr esent early infiltrates. No pleural effusion is seen. IMPRESSION: Possible bilateral lower lobe early infiltrates. POS: [facility]
[2017-08-30 20:34] LABS: #Basophils 0.1 thou/uL (0.0-0.2); #Eosinphils 0.4 thou/uL (0.0-0.7); #Lymphocytes 3.7 thou/uL (1.20-3.40); #Monocytes 1.1 thou/uL (0.11-0.59); #Neutrophils 5.4 thou/uL (1.40-6.50); %Basophils 1.3 % (0.0-1.0); %Eosinophils 3.3 % (0.0-10.0); %Lymphocytes 34.8 % (21.0-51.0); %Monocytes 10.1 % (0.0-10.0); %Neutrophils 50.4 % (42.0-75.0); Hemoglobin 7.2 g/dL (12.0-16.0); Mean Corpuscular HGB CONC 33.9 g/dL (32.0-36.0); Mean Corpuscular Hemoglobin 29.9 pg (27.0-31.0); Mean Corpuscular Volume 88.2 fl (81.0-99.0); Mean Platelet Volume 6.7 fL (7.4-10.4); Platelet Count 315 thou/uL (130-400); RBC Distribution Width 10.6 % (11.5-14.5); White Blood Cell (WBC) Count 10.7 thou/uL (4.8-10.8)
[2017-08-30 20:59] LABS: ALT (SGPT) 21 U/L (8-55); AST (SGOT) 19 U/L (5-34); Alkaline Phosphatase 111 U/L (40-150); Anion Gap 16 mmol/L (10-20); BUN (Urea Nitrogen) 22 mg/dL (7.0-18.7); Bilirubin, Total 0.4 mg/dL (0.2-1.2); CK (CPK) 282 U/L (29-168); Calc. Creatinine Clearance 0 mL/min (70-130); Calcium 8.6 mg/dL (7.8-10.44); Carbon Dioxide 21 mmol/L (22-29); Chloride 107 mmol/L (98-107); Estimated GFR-MDRD 71; Globulin 3.7 g/dL (2.4-3.5); Glucose 138 mg/dL (70-105); Lipase 12 U/L (8-78); Potassium 4.2 mmol/L (3.5-5.1); Protein, Total 6.7 g/dL (6.0-8.3); Sodium 140 mmol/L (136-145)
[2017-08-30 21:00] LABS: Troponin I Less than 0.010 ng/mL (< 0.028)
[2017-08-30] MEDS ORDERED: Nitroglycerin 2% Ointment 1 INCH/1 GM Packet ONE (21:07)
[2017-08-31 00:11] LABS: Troponin I Less than 0.010 ng/mL (< 0.028)
[2017-08-31] MEDS ORDERED: Acetaminophen 325 MG TAB PO PRN (02:51)
[2017-08-31] MEDS ORDERED: HYDROcodone/Acetaminophen 7.5/325 mg Tablet PO PRN (02:51)
[2017-08-31] MEDS ORDERED: HYDROcodone/Acetaminophen 5/325 mg Tablet PO PRN (02:51)
[2017-08-31] MEDS ORDERED: Ondansetron ODT 4 MG TAB PO PRN (02:51)
[2017-08-31 02:59] LABS: Troponin I 0.015 ng/mL (< 0.028)
[2017-08-31] MEDS ORDERED: HumaLOG 300 UNITS/3 ML VIAL SC PRN (02:59)
[2017-08-31] MEDS ORDERED: Dextrose 5% in Water 1,000 ML IV PRN (02:59)
[2017-08-31] MEDS ORDERED: Dextrose 50% Abboject 50 ML SYRINGE SLOW IVP PRN (02:59)
[2017-08-31] MEDS ORDERED: cefTRIAXone\\ROCEPHIN 1 GM in Sodium Chloride 0.9% 100 ML IVPB SCH (03:00)
--- NOTE | 2017-08-31 03:30 | HP ---
CHIEF COMPLAINT: Fatigue and shortness of breath. HISTORY OF PRESENT ILLNESS: The patient is a 42-year-old female who presents with 3 to 4 days of fat igue, shortness of breath, body aches as well as fevers and chills and a cough. The patient reports having dyspnea on exertion as well. She was seen at an outlying ER and transferred here due to her s ymptoms as well as her low blood count. PAST MEDICAL HISTORY: The patient is significant for atrial fibrillation, type 2 diabetes, hypertens ion, and peripheral neuropathy. PAST SURGICAL HISTORY: The patient has had x2, cholecystectomy, cardiac ablation for atria l fibrillation and uterine ablation due to heavy menstrual cycles. SOCIAL HISTORY: Negative for tobacco or alcohol use. ALLERGIES: No known drug allergies. MEDICATIONS: The patient is currently on amlodipine, cyclobenzaprine, gabapentin, losartan, metformi n, insulin 70/30, metoclopramide, Lipitor, carvedilol, and clonidine. REVIEW OF SYSTEMS: Please see HPI. Rest of 14-point review of systems is negative. PHYSICAL EXAMINATION: VITAL SIGNS: Latest vitals, temperature is 97.9, pulse 91, respirations 18, blood pressure is 137/85 , and patient is satting 97% on room air. GENERAL: The patient is awake, alert, and oriented x3, in no acute distress. HEENT: Pupils round, react to light and accommodation. Extraocular muscles intact. TMs are clear. No erythema in throat. NECK: No JVD, no lymphadenopathy. HEART: Regular rate and rhythm. LUNGS: Clear to auscultation bilaterally. ABDOMEN: Positive bowel sounds. Soft, nontender, nondistended. EXTREMITIES: No clubbing, cyanosis or edema. LABORATORY AND X-RAY DATA: The patient's chest x-ray shows bilateral lower lobe infiltrates. CBC: White count was 10, H and H 7 and 21 with an MCV of 88, platelet count is 315. Sodium is 140, potass ium 4.2, chloride 107, bicarbonate 21, BUN 22, creatinine 1.0 with a glucose of 138. ASSESSMENT AND PLAN: 1. Bilateral lower lobe pneumonias. Continue on azithromycin and Rocephin IV. Continue with sympto m control. 2. Anemia, most likely secondary to her continued heavy periods. We will continue to monitor and tr ansfuse as needed. 3. Type 2 diabetes. Continue on insulin 70/30 with insulin sliding scale. 4. Hypertension. Blood pressure is now mildly elevated and we will restart her outpatient medicatio ns. 5. Code status: The patient is FULL CODE.
[2017-08-31] MEDS: Nitroglycerin 2% Ointment 1 INCH/1 GM Packet TOP SCH ×2 (03:31→09:34)
[2017-08-31] MEDS: cefTRIAXone\\ROCEPHIN 1 GM, Syringe 0.4 ML in Sterile Water 9.6 ML SLOW IVP SCH (04:04)
[2017-08-31] MEDS: Azithromycin 500 MG in Sodium Chloride 0.9% 250 ML 250 ML IVPB SCH (04:05)
[2017-08-31 04:41] LABS: #Eosinphils 0.3 thou/uL (0.0-0.7); #Lymphocytes 3.2 thou/uL (1.20-3.40); #Monocytes 0.9 thou/uL (0.11-0.59); #Neutrophils 3.7 thou/uL (1.40-6.50); %Basophils 0.2 % (0.0-1.0); %Eosinophils 4.2 % (0.0-10.0); %Lymphocytes 39.2 % (21.0-51.0); %Monocytes 11.5 % (0.0-10.0); %Neutrophils 44.9 % (42.0-75.0); Mean Corpuscular Hemoglobin 31.6 pg (27.0-31.0); Mean Corpuscular Volume 93.1 fl (81.0-99.0); Mean Platelet Volume 7.5 fL (7.4-10.4); Platelet Count 279 thou/uL (130-400); RBC Distribution Width 11.3 % (11.5-14.5); Red Blood Cell (RBC) Count 2.83 mill/uL (4.20-5.40); White Blood Cell (WBC) Count 8.2 thou/uL (4.8-10.8)
[2017-08-31 05:04] LABS: Anion Gap 15 mmol/L (10-20); BUN (Urea Nitrogen) 25 mg/dL (7.0-18.7); Calc. Creatinine Clearance 145 mL/min (70-130); Calcium 8.4 mg/dL (7.8-10.44); Carbon Dioxide 20 mmol/L (22-29); Chloride 108 mmol/L (98-107); Estimated GFR-MDRD 64; Glucose 170 mg/dL (70-105); Sodium 139 mmol/L (136-145)
[2017-08-31] MEDS ORDERED: hydrALAZINE 20 MG/ML VIAL SLOW IVP PRN (07:42)
[2017-08-31] MEDS ORDERED: Mag-Al 1200 mg/1200 mg/30 ML UDCUP PO PRN (07:42)
[2017-08-31] MEDS ORDERED: Temazepam 15 MG CAP PO PRN (07:42)
[2017-08-31] MEDS ORDERED: Chloraseptic Spray 180 ml Bottle PO PRN (07:42)
[2017-08-31] MEDS ORDERED: Eucerin (Mineral Oil/Petrolatum,White) 30 gm Jar TOP PRN (07:42)
[2017-08-31] MEDS ORDERED: Milk Of Magnesia 30 ML UDCUP PO PRN (07:42)
[2017-08-31] MEDS ORDERED: Loperamide HCl 2 MG CAP PO PRN (07:42)
[2017-08-31] MEDS ORDERED: Sodium Chloride 0.65% Nasal 44 ML BOT EA NARE PRN (07:42)
[2017-08-31] MEDS ORDERED: Senokot 8.6 MG TAB PO PRN (07:42)
[2017-08-31] MEDS ORDERED: Loratadine 10 MG TAB PO PRN (07:42)
[2017-08-31] MEDS ORDERED: Artificial Tears 18 DROP/0.9 ML EA EYE PRN (07:42)
[2017-08-31] MEDS ORDERED: Famotidine/PF 20 mg/2ml Vial SLOW IVP SCH (09:00)
[2017-08-31] MEDS ORDERED: Aspirin 325 mg Enteric Coated Tablet PO SCH (09:00)
[2017-08-31] MEDS: Insulin NPH/Reg Insulin Hm 300 UNITS/3 ML VIAL SC SCH ×2 (09:32→16:12)
[2017-08-31] MEDS: metFORMIN 500 MG TAB PO SCH ×2 (09:32→16:11)
[2017-08-31] MEDS: cloNIDine 0.1 MG TAB PO SCH ×2 (09:33→20:30)
[2017-08-31] MEDS: Ferrous Sulfate 325 MG TAB PO SCH ×2 (09:33→16:11)
[2017-08-31] MEDS: Amlodipine 10 MG TAB PO SCH (09:33)
[2017-08-31] MEDS: Carvedilol 25 MG TAB PO SCH ×2 (09:33→16:11)
[2017-08-31] MEDS: Famotidine 20 MG TAB PO SCH ×2 (09:34→20:30)
[2017-08-31] MEDS: Losartan 25 MG TAB PO SCH (09:34)
[2017-08-31] MEDS: Gabapentin 300 MG CAP PO SCH ×3 (09:34→20:30)
[2017-08-31] MEDS: Metoclopramide HCl 10 MG TAB PO SCH ×4 (09:34→20:30)
--- NOTE | 2017-08-31 12:24 | PDOC.PN ---
- Subjective Encounter Start Date: 08/31/17 Encounter Start Time: 07:40 -: old records requested/rev pt has cough, no fever, dyspnea better, overall feels better - Objective Resuscitation Status: Resuscitation Status FULL:Full Resuscitation MAR Reviewed: Yes Vital Signs & Weight: Vital Signs (12 hours) Temp Pulse Resp BP BP Pulse Ox 08/31/17 09:33 94 140/78 08/31/17 08:00 98.3 F 94 12 08/31/17 07:45 98.3 F 94 12 145/74 H 97 08/31/17 04:05 95 18 140/78 97 Weight Weight 308 lb 4.8 oz I&O: 08/30/17 08/31/17 09/01/17 06:59 06:59 06:59 Intake Total 260 Balance 260 Result Diagrams: 08/31/17 01:56 08/31/17 01:56 Additional Labs: Accuchecks 08/31/17 08/31/17 10:52 05:54 POC Glucose 202 H 164 H Radiology Reviewed by me: Yes EKG Reviewed by me: Yes (nsr) Phys Exam - Physical Examination Constitutional: NAD HEENT: PERRLA, moist MMs, sclera anicteric Neck: no JVD, supple Respiratory: no wheezing, no rhonchi reduced basilar air entry Cardiovascular: RRR, no significant murmur, no rub Gastrointestinal: soft, non-tender, no distention, positive bowel sounds Musculoskeletal: no edema, pulses present Neurological: non-focal, normal sensation, moves all 4 limbs Psychiatric: normal affect, A&O x 3 Skin: no rash, normal turgor Dx/Plan (1) Community acquired bacterial pneumonia Code(s): J15.9 - UNSPECIFIED BACTERIAL PNEUMONIA Status: Acute (2) Anemia, normocytic normochromic Code(s): D64.9 - ANEMIA, UNSPECIFIED Status: Chronic (3) CKD (chronic kidney disease) stage 3, GFR 30-59 ml/min Code(s): N18.3 - CHRONIC KIDNEY DISEASE, STAGE 3 (MODERATE) Status: Chronic (4) Diabetes type 2, controlled Code(s): E11.9 - TYPE 2 DIABETES MELLITUS WITHOUT COMPLICATIONS Status: Chronic (5) Dyslipidemia Code(s): E78.5 - HYPERLIPIDEMIA, UNSPECIFIED Status: Chronic (6) 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 Code(s): E13.43 - OTH DIABETES MELLITUS W DIABETIC AUTONOMIC (POLY)NEUROPATHY Status: Chronic (7) Hypertension Code(s): I10 - ESSENTIAL (PRIMARY) HYPERTENSION Status: Chronic (8) Morbid obesity with BMI of 50.0-59.9, adult Code(s): E66.01 - MORBID (SEVERE) OBESITY DUE TO EXCESS CALORIES; Z68.43 - BODY MASS INDEX (BMI) 50-59.9 , ADULT Status: Chronic - Plan cont current plan of care, plan discussed w/ family, continue antibiotics * continue current IV antibiotics * medication reviewed as below * symptomatic treatment * will plan for discharge tomorrow morning * start selected home meds Review of Systems - Review of Systems Constitutional: negative: fever, chills, sweats, weakness, malaise, other Eyes: negative: Pain, Vision Change, Conjunctivae Inflammation, Eyelid Inflammation, Redness, Other ENT: negative: Ear Pain, Ear Discharge, Nose Pain, Nose Discharge, Nose Congestion, Mouth Pain, Mouth Swelling, Throat Pain, Throat Swelling, Other Respiratory: Cough. negative: Dry, Shortness of Breath, Hemoptysis, SOB with Excertion, Pleuritic Pain, Sputum, Wheezing Cardiovascular: negative: chest pain, palpitations, orthopnea, paroxysmal nocturnal dyspnea, edema, light headedness, other Gastrointestinal: negative: Nausea, Vomiting, Abdominal Pain, Diarrhea, Constipation, Melena, Hematochezia, Other Genitourinary: negative: Dysuria, Frequency, Incontinence, Hematuria, Retention , Other Musculoskeletal: negative: Neck Pain, Shoulder Pain, Arm Pain, Back Pain, Hand Pain, Leg Pain, Foot Pain, Other Skin: negative: Rash, Lesions, Papi, Bruising, Other - Medications/Allergies Allergies/Adverse Reactions: Allergies Allergy/AdvReac Type Severity Reaction Status Date / Time No Known Allergies Allergy Verified 08/31/17 00:43 Medications: Current Medications Acetaminophen (Tylenol) 650 mg PO Q4H PRN PRN Reason: Headache/Fever or Pain Hydrocodone Bitart/Acetaminophen ([place] 5/325) 1 tab PO Q4H PRN PRN Reason: Moderate Pain (4-6) Hydrocodone Bitart/Acetaminophen ([place] 7.5/325) 1 tab PO Q4H PRN PRN Reason: Severe Pain (7-10) Al Hydroxide/Mg Hydroxide (Maalox) 15 ml PO Q4H PRN PRN Reason: Heartburn or Indigestion Amlodipine Besylate (Norvasc) 10 mg PO DAILY [facility] Last Admin: 08/31/17 09:33 Dose: 10 mg Artificial Tears (Tears Naturale) 0 drop EA EYE PRN PRN PRN Reason: Dry Eyes Atorvastatin Calcium (Lipitor) 40 mg PO [facility] Carvedilol (Coreg) 25 mg PO BID-[facility] Last Admin: 08/31/17 09:33 Dose: 25 mg Clonidine (Catapres) 0.1 mg PO BID [facility] Last Admin: 08/31/17 09:33 Dose: 0.1 mg Dextrose/Water (Dextrose 50%) 25 gm SLOW IVP PRN PRN PRN Reason: Hypoglycemia Famotidine (Pepcid) 20 mg PO BID [facility] Last Admin: 08/31/17 09:34 Dose: 20 mg Ferrous Sulfate (Feosol) 325 mg PO BID-[facility] Last Admin: 08/31/17 09:33 Dose: 325 mg Gabapentin (Neurontin) 300 mg PO TID [facility] Last Admin: 08/31/17 09:34 Dose: 300 mg Glucagon (Glucagon) 1 mg IM PRN PRN PRN Reason: Hypoglycemia Guaifenesin (Robitussin Sf) 200 mg PO Q4H PRN PRN Reason: Cough Hydralazine HCl (Apresoline) 10 mg SLOW IVP Q4H PRN PRN Reason: Systolic BP > 180 Azithromycin 500 mg/ Sodium (Chloride) 250 mls @ 250 mls/hr IVPB Q24HR [facility] Last Admin: 08/31/17 04:05 Dose: 250 mls Dextrose/Water (D5w) 1,000 mls @ 0 mls/hr IV .Q0M PRN; As Directed PRN Reason: Hypoglycemia Ceftriaxone Sodium 1 gm/ (Syringe 0.4 ml/ Sterile Water) 10 mls @ 120 mls/hr SLOW IVP 0330 [facility] Last Admin: 08/31/17 04:04 Dose: 10 mls Insulin Human Isoph/Insulin Regular (Humulin 70/30) 25 units SC BID-[facility] Last Admin: 08/31/17 09:32 Dose: 25 unit Insulin Human Lispro (Humalog) 0 units SC .MODERATE SLIDING SC PRN PRN Reason: Moderate Correctional Scale Loperamide HCl (Imodium) 2 mg PO PRN PRN PRN Reason: Diarrhea/Loose Stools Loratadine (Claritin) 10 mg PO DAILYPRN PRN PRN Reason: Sinus Symptoms Losartan Potassium (Cozaar) 100 mg PO DAILY [facility] Last Admin: 08/31/17 09:34 Dose: 100 mg Magnesium Hydroxide (Milk Of Magnesium) 30 ml PO DAILYPRN PRN PRN Reason: Constipation Metformin HCl (Glucophage) 500 mg PO BID-[facility] Last Admin: 08/31/17 09:32 Dose: 500 mg Metoclopramide HCl (Reglan) 10 mg PO [facility] Last Admin: 08/31/17 09:34 Dose: 10 mg Mineral Oil/White Petrolatum (Eucerin Cream) 0 gm TOP BIDPRN PRN PRN Reason: Dry Skin Ondansetron HCl (Zofran Odt) 4 mg PO Q6H PRN PRN Reason: Nausea/Vomiting Phenol (Chloraseptic [place] 180 Ml Bot) 0 ml PO PRN PRN PRN Reason: Sore Throat Senna (Senokot) 2 tab PO HSPRN PRN PRN Reason: Constipation Sodium Chloride ([place] Nasal [place] 0.65%) 0 ml EA NARE QIDPRN PRN PRN Reason: Nasal Congestion Temazepam (Restoril) 15 mg PO HSPRN PRN PRN Reason: Insomnia
[2017-08-31] MEDS: Diabetic Tussin 200 MG/10 ML UDCUP PO PRN ×2 (16:17→21:34)
[2017-08-31 20:51] VITALS: TEMP 98.3
[2017-08-31] MEDS ORDERED: Atorvastatin Calcium 40 MG TAB PO SCH (21:00)
[2017-09-01] MEDS: Azithromycin 500 MG in Sodium Chloride 0.9% 250 ML 250 ML IVPB SCH (03:34)
[2017-09-01] MEDS: cefTRIAXone\\ROCEPHIN 1 GM, Syringe 0.4 ML in Sterile Water 9.6 ML SLOW IVP SCH (03:34)
[2017-09-01] MEDS: Diabetic Tussin 200 MG/10 ML UDCUP PO PRN (07:57)
[2017-09-01] MEDS: Insulin NPH/Reg Insulin Hm 300 UNITS/3 ML VIAL SC SCH (07:58)
[2017-09-01] MEDS: metFORMIN 500 MG TAB PO SCH (07:58)
[2017-09-01] MEDS: Ferrous Sulfate 325 MG TAB PO SCH (07:58)
[2017-09-01] MEDS: Carvedilol 25 MG TAB PO SCH (07:58)
[2017-09-01] MEDS: Losartan 25 MG TAB PO SCH (07:59)
[2017-09-01] MEDS: Gabapentin 300 MG CAP PO SCH (08:00)
[2017-09-01] MEDS: Metoclopramide HCl 10 MG TAB PO SCH (08:00)
[2017-09-01] MEDS: cloNIDine 0.1 MG TAB PO SCH (08:00)
[2017-09-01] MEDS: Famotidine 20 MG TAB PO SCH (08:00)
[2017-09-01] MEDS: Amlodipine 10 MG TAB PO SCH (08:00)
[2017-09-01 08:50] VITALS: BP 145/80
--- NOTE | 2017-09-01 10:44 | DIS ---
DATE OF ADMISSION: 08/30/2017 DATE OF DISCHARGE: 09/01/2017 PRIMARY CARE PHYSICIAN: Cesar Wood D.O. DISCHARGE DISPOSITION: Home. PRIMARY DISCHARGE DIAGNOSIS: Community-acquired bacterial pneumonia. SECONDARY DISCHARGE DIAGNOSES: 1. Morbid obesity with body mass index of 52. 2. Hypertension. 3. Diabetic gastroparesis. 4. Dyslipidemia. 5. Diabetes type 2. 6. Chronic kidney disease, stage 2. 7. Anemia, normocytic and normochromic. PRIMARY PROCEDURES/OPERATIONS: None. RADIOLOGICAL INVESTIGATION: Chest x-ray showed bibasilar infiltration. SIGNIFICANT LABORATORY DATA: WBC 8.2, hemoglobin 9.0, platelets 279. Sodium 139, potassium 4.0, BUN 25, creatinine 1.13, calcium 8.4. Cardiac enzymes negative. Blood culture negative. Influenza neg ative. DISCHARGE MEDICATIONS: Amlodipine 10 mg p.o. daily, Lipitor 40 mg p.o. at bedtime, Tessalon 100 mg p .o. t.i.d. p.r.n., Coreg 25 mg p.o. b.i.d., clonidine 0.1 mg p.o. b.i.d., Pepcid 20 mg p.o. b.i.d., f errous sulfate 325 mg p.o. b.i.d., gabapentin 300 mg p.o. t.i.d., Mucinex 600 mg p.o. b.i.d. for 7 da ys, NPH insulin 25 units subcutaneously b.i.d., levofloxacin 750 mg p.o. daily for 7 days, losartan 1 00 mg p.o. daily, metformin 500 mg p.o. b.i.d., and Reglan 10 mg p.o. q.i.d. p.r.n. CONTRAINDICATIONS: None. CODE STATUS: FULL CODE. INPATIENT CONSULTANTS: None. ALLERGIES: No known drug allergy. DISCHARGE PLAN: Post hospital, the patient will follow up with primary care physician in 1 week. HOSPITAL COURSE: A 42-year-old female with above-mentioned medical problems, who was admitted by Dr. David Jasmine. Please see the H and P for further details. The patient presented to the ER with dysp rozina and fatigue. She was having body ache, fevers, chills and cough. Her chest x-ray showed bibasil ar infiltration. She was admitted in the hospital for observation. She was treated with Rocephin an d azithromycin. She had significant improvement. On discharge, we prescribed levofloxacin for [facility] er 7 days. The patient is advised to continue all her previous home medications. While in hospital, the patient was afebrile on room air, hemodynamically stable. The patient is seen and examined at bedside today. PHYSICAL EXAMINATION: VITAL SIGNS: Currently, her temperature 98.3, pulse 97, respiratory rate 18, saturation 97% on room air, blood pressure 145/80, weight is 308 pounds. GENERAL: The patient is currently alert and awake, no acute distress. HEAD: Normocephalic, atraumatic. EYES: Pupils round, reactive to light. Extraocular muscles are intact. ENT: Oropharynx within normal limits. Moist mucous membranes. No oral lesions. No pharyngeal eryt andrez, no exudates. NECK: Supple, no JVD, no thyromegaly, no carotid bruit. LUNGS: Clear to auscultation without any rhonchi or rales. CARDIAC: S1, S2 regular, without any murmurs. ABDOMEN: Soft and benign, obesity present. EXTREMITIES: No edema. NEUROLOGIC: Nonfocal examination. The patient is medically stable for discharge today.
== END 2017-09-01 08:56 | disposition home or self-care (01) ==
LOC: SCSER 18:00 → 2SW 21:18
PROVIDERS: ADMIT Hospitalist; ATTEND Hospitalist
DX: J15.9 Unspecified bacterial pneumonia (principal); E66.01 Morbid (severe) obesity due to excess calories; E11.43 Type 2 diabetes mellitus with diabetic autonomic (poly)neuropathy; K31.84 Gastroparesis; E78.5 Hyperlipidemia, unspecified; E11.22 Type 2 diabetes mellitus with diabetic chronic kidney disease; I12.9 Hypertensive chronic kidney disease with stage 1 through stage 4 chronic kidney disease, or unspecified chronic kidney disease; N18.2 Chronic kidney disease, stage 2 (mild); D63.1 Anemia in chronic kidney disease; I48.91 Unspecified atrial fibrillation; Z68.43 Body mass index [BMI] 50.0-59.9, adult; Z79.4 Long term (current) use of insulin; Z79.899 Other long term (current) drug therapy; Z90.49 Acquired absence of other specified parts of digestive tract; Z98.890 Other specified postprocedural states; Z98.891 History of uterine scar from previous surgery
CPT/HCPCS: 36415; 36416; 71046; 80048; 80053; 82550; 82553; 83690; 83880; 84484; 85025; 87040; 93005; 96365; 96366; 96367; 96375; 96376; A4216; G0378; J0456; J0696; J1956; J7050

== ENCOUNTER 2017-10-08 12:26 | Outpatient (CLI) | payer OTHER | END 2017-10-08 12:27 | disposition home or self-care (01) | LOC: ULT 12:26 | PROVIDERS: ATTEND Family Medicine | DX: R60.0 Localized edema (principal); I08.1 Rheumatic disorders of both mitral and tricuspid valves | CPT/HCPCS: 93306 ==

== ENCOUNTER 2018-05-01 17:07 | Emergency (ER) | payer OTHER, SELFPAY ==
--- NOTE | 2018-05-01 19:23 | RAD ---
THREE VIEW LEFT FOOT: 05/01/18 INDICATION: Foot ulceration. FINDINGS: There is soft tissue prominence and vascular calcification. No acute fracture or dislocation. Scatter ed degenerative change is present. Prominent enthesophyte formation is noted at the calcaneus. IMPRESSION: Prominent soft tissues. Correlate clinically. No acute osseous abnormality of the left foot identified. POS: [facility]
[2018-05-01 20:31] LABS: #Basophils 0.2 thou/uL (0.0-0.2); #Eosinphils 0.4 thou/uL (0.0-0.7); #Lymphocytes 3.7 thou/uL (1.20-3.40); #Neutrophils 3.7 thou/uL (1.40-6.50); %Basophils 1.8 % (0.0-1.0); %Eosinophils 4.5 % (0.0-10.0); %Lymphocytes 41.2 % (21.0-51.0); %Monocytes 11.2 % (0.0-10.0); %Neutrophils 41.3 % (42.0-75.0); Hemoglobin 9.5 g/dL (12.0-16.0); Mean Corpuscular HGB CONC 32.7 g/dL (32.0-36.0); Mean Corpuscular Hemoglobin 29.1 pg (27.0-31.0); Mean Corpuscular Volume 89.1 fL (78.0-98.0); Mean Platelet Volume 8.3 fL (7.4-10.4); Platelet Count 242 thou/uL (130-400); RBC Distribution Width 11.4 % (11.5-14.5); Red Blood Cell (RBC) Count 3.27 mill/uL (4.20-5.40)
[2018-05-01 20:56] LABS: ALT (SGPT) 15 U/L (8-55); AST (SGOT) 26 U/L (5-34); Albumin 3.7 g/dL (3.5-5.0); Alkaline Phosphatase 122 U/L (40-150); Anion Gap 20 mmol/L (10-20); BUN (Urea Nitrogen) 48 mg/dL (7.0-18.7); Bilirubin, Total 0.2 mg/dL (0.2-1.2); Calc. Creatinine Clearance 0 mL/min (70-130); Calcium 9.1 mg/dL (7.8-10.44); Carbon Dioxide 17 mmol/L (22-29); Chloride 98 mmol/L (98-107); Estimated GFR-MDRD 21; Globulin 5.1 g/dL (2.4-3.5); Glucose 485 mg/dL (70-105); Protein, Total 8.8 g/dL (6.0-8.3); Sodium 129 mmol/L (136-145)
== END 2018-05-01 21:49 | disposition home or self-care (01) ==
LOC: SCSER 17:07
DX: E11.621 Type 2 diabetes mellitus with foot ulcer (principal); L97.429 Non-pressure chronic ulcer of left heel and midfoot with unspecified severity; E11.65 Type 2 diabetes mellitus with hyperglycemia; I49.9 Cardiac arrhythmia, unspecified; I48.91 Unspecified atrial fibrillation; I10 Essential (primary) hypertension; Z79.899 Other long term (current) drug therapy; Z79.84 Long term (current) use of oral hypoglycemic drugs
CPT/HCPCS: 80053; 85025

== ENCOUNTER 2018-06-10 16:59 | Inpatient (IN) | payer SELFPAY ==
[2018-06-10 18:30] LABS: #Basophils 0.1 thou/uL (0.0-0.2); #Eosinphils 0.1 thou/uL (0.0-0.7); #Lymphocytes 2.8 thou/uL (1.20-3.40); #Monocytes 1.2 thou/uL (0.11-0.59); %Basophils 0.7 % (0.0-1.0); %Eosinophils 0.8 % (0.0-10.0); %Lymphocytes 18.5 % (21.0-51.0); %Monocytes 7.7 % (0.0-10.0); %Neutrophils 72.4 % (42.0-75.0); Hemoglobin 10.7 g/dL (12.0-16.0); Mean Corpuscular HGB CONC 31.1 g/dL (32.0-36.0); Mean Corpuscular Hemoglobin 28.2 pg (27.0-31.0); Mean Corpuscular Volume 90.7 fL (78.0-98.0); Mean Platelet Volume 7.8 fL (7.4-10.4); Platelet Count 358 thou/uL (130-400); RBC Distribution Width 11.2 % (11.5-14.5); Red Blood Cell (RBC) Count 3.79 mill/uL (4.20-5.40); White Blood Cell (WBC) Count 15.2 thou/uL (4.8-10.8)
[2018-06-10 18:50] LABS: ALT (SGPT) 9 U/L (8-55); AST (SGOT) 8 U/L (5-34); Albumin 3.8 g/dL (3.5-5.0); Alkaline Phosphatase 147 U/L (40-150); Anion Gap 19 mmol/L (10-20); BUN (Urea Nitrogen) 41 mg/dL (7.0-18.7); Bilirubin, Total 0.5 mg/dL (0.2-1.2); Calc. Creatinine Clearance 0 mL/min (70-130); Calcium 10.1 mg/dL (7.8-10.44); Carbon Dioxide 19 mmol/L (22-29); Chloride 100 mmol/L (98-107); Estimated GFR-MDRD 28; Globulin 5.2 g/dL (2.4-3.5); Glucose 414 mg/dL (70-105); Potassium 5.1 mmol/L (3.5-5.1); Sodium 133 mmol/L (136-145)
[2018-06-10] MEDS ORDERED: Insulin Regular 300 UNITS/3 ML VIAL ONE (18:58)
[2018-06-10] MEDS ORDERED: Metoprolol Tartrate 5 MG/5 ML VIAL ONE (18:58)
--- NOTE | 2018-06-10 19:46 | RAD ---
THREE VIEWS LEFT FOOT: 06/10/18 INDICATION: History of left foot pain and chronic wound. FINDINGS: There is a wound overlying the lateral aspect of the small digit with soft tissue swelling of the for efoot and midfoot. No definite destructive osteolysis to suggest the presence of osteomyelitis by rad iography. There is scattered degenerative change of the midfoot and forefoot. Lisfranc alignment is p reserved. Enthesopathic change seen off the calcaneus. There are Monckeberg calcifications within the soft tissues. IMPRESSION: Large soft tissue wound along the lateral aspect of the left forefoot near the fifth digit proximal p halanx. No definite destructive osteolyitis or acute fracture is demonstrated. POS: [facility]
[2018-06-10 19:51] LABS: BHCG - Serum Negative (NEGATIVE); Pregs Control Background? CLEAR/WHITE (CLR/WHITE); Pregs Control Bar Appear? YES (CONTROL BAR)
[2018-06-10] MEDS ORDERED: Morphine 2 MG/ML SYRINGE ONE (21:18)
[2018-06-10] MEDS ORDERED: Ondansetron PF 4 MG/2 ML Vial ONE (21:32)
[2018-06-10 22:41] VITALS: BMI 56.4
[2018-06-10 22:53] LABS: Lactic Acid 2.8 mmol/L (0.5-2.2)
[2018-06-11] MEDS: traMADol HCl 50 MG TAB PO PRN ×2 (01:22→08:24)
[2018-06-11] MEDS ORDERED: Dextrose 5% in Water 1,000 ML IV PRN ×2 (01:58→12:43)
[2018-06-11] MEDS ORDERED: Dextrose 50% Abboject 50 ML SYRINGE SLOW IVP PRN ×2 (01:58→12:43)
[2018-06-11] MEDS ORDERED: Carvedilol 25 MG TAB PO SCH (02:30)
[2018-06-11] MEDS: Sodium Chloride 0.9% 1,000 ML IV SCH ×2 (03:12→13:18)
[2018-06-11] MEDS: HumaLOG 300 UNITS/3 ML VIAL SC PRN ×3 (06:22→17:40)
[2018-06-11] MEDS: cloNIDine 0.2 MG TAB PO SCH ×2 (08:25→20:24)
[2018-06-11] MEDS: Amitriptyline HCl 25 MG TAB PO SCH ×2 (08:25→20:22)
[2018-06-11] MEDS: Ferrous Sulfate 325 MG TAB PO SCH ×2 (08:26→17:17)
[2018-06-11] MEDS: Aspirin 81 mg Enteric Coated Tablet PO SCH (08:26)
[2018-06-11] MEDS: Insulin NPH/Reg Insulin Hm 300 UNITS/3 ML VIAL SC SCH ×3 (08:27→17:42)
[2018-06-11 14:07] LABS: ALT (SGPT) 9 U/L (8-55); AST (SGOT) 9 U/L (5-34); Alkaline Phosphatase 116 U/L (40-150); Anion Gap 11 mmol/L (10-20); BUN (Urea Nitrogen) 45 mg/dL (7.0-18.7); Bilirubin, Total 0.3 mg/dL (0.2-1.2); Calc. Creatinine Clearance 72 mL/min (70-130); Calcium 8.9 mg/dL (7.8-10.44); Carbon Dioxide 22 mmol/L (22-29); Chloride 105 mmol/L (98-107); Estimated GFR-MDRD 27; Globulin 4.1 g/dL (2.4-3.5); Glucose 265 mg/dL (70-105); Potassium 4.8 mmol/L (3.5-5.1); Protein, Total 7.1 g/dL (6.0-8.3); Sodium 133 mmol/L (136-145)
--- NOTE | 2018-06-11 14:08 | CON ---
DATE OF CONSULTATION: 06/11/2018 HISTORY OF PRESENT ILLNESS: Chidi Newton is a 43-year-old black female who works at [employer] or the past 2 months she has had problems with her left foot. She presents to the emergency room wit h a foul smelling diabetic ulceration plantar aspect left foot beneath the fifth metatarsophalangeal joint. She had x-rays obtained revealing soft tissue destruction, but no definite evidence of osteom yelitis. Apparently she had another foot x-ray 05/01/2018, same foot revealing the same problems, sa me presentation. She was admitted to Hospitalist Service for intravenous antibiotics. Wound Care ask ed me to see her regarding the foul smelling foot wound with necrotic tissue, feeling that she needs surgical debridement. They discussed with Dr. Mckinnon who called me and asked me to see her. ALLERGIES: LISINOPRIL. TOBACCO: None. ALCOHOL: None. MEDICATIONS: Furosemide 20 mg a day, aspirin 81 mg a day, amlodipine besylate 10 mg a day a.m., delfino riptyline 25 mg b.i.d., carvedilol 25 mg b.i.d., Tessalon 100 mg p.r.n., atorvastatin 40 mg at bedtim e, insulin 70/30 NPH regular 30 units subcu b.i.d. a.c., gabapentin 600 b.i.d., ferrous sulfate 325 b .i.d., losartan, Cozaar 100 mg daily, metformin 500 mg b.i.d., clonidine 0.2 mg b.i.d., Reglan 10 mg p.o. at bedtime. PAST SURGICAL HISTORY: Laparoscopic cholecystectomy, 2 C-sections, tubal ligation, arthroscopy knee. PAST MEDICAL HISTORY: Hypertension, diabetes mellitus, insulin-dependent, metabolic syndrome, obesit y, neuropathy, hypercholesterolemia, history of cardiac ablation for atrial fibrillation, successful no recurrent problems. REVIEW OF SYSTEMS: Noncontributory. PHYSICAL EXAMINATION: VITAL SIGNS: Height 5 foot 4, 333 pounds, over 50 BMI. HEENT: Unremarkable. LUNGS: Clear to auscultation. CARDIAC: Regular rate and rhythm without murmur or gallop. ABDOMEN: Soft, obese, nontender. EXTREMITIES: Palpable femoral, popliteal, pedal pulses. Left plantar ulceration. Necrotic tissue b eneath the metatarsophalangeal joint, fifth toe. Inflammatory changes distal foot surrounding this a christiano. LABORATORY: White count 15, hemoglobin 10.7. Accu-Cheks 300-328. Hemoglobin A1c 12/2017 7.9. ASSESSMENT AND PLAN: 1. Diabetic gangrene, left foot. We will plan surgical debridement, probably we will necessitate am putation of left fifth toe and metatarsal. Risk and benefits explained, she consents. 2. History of atrial fibrillation, cardiac ablation. Baseline EKG. 3. Metabolic syndrome, morbid obesity, BMI greater than 50. 4. Diabetes mellitus, insulin dependent. 5. Hypertension. 6. Elevated cholesterol.
--- NOTE | 2018-06-11 14:42 | HP ---
CHIEF COMPLAINT: Left foot pain. HISTORY OF PRESENT ILLNESS: This patient is a 43-year-old female with a history of diabetes. Darin johnston does not have a glucometer at home and does not monitor her blood sugars either. The patient repor ts that she started developing some callus on the bottom of her left foot weeks ago. The patient rep orts that she had a history of left knee surgery from hyperextending at some time in the past and morena t leg does not have full range of motion anymore. She tried to treat this herself and keep it bandag ed for a period of time, but kept going to work and walking on it. Subsequently, the callus turned b lack and started developing an odor. She tried to see her PCP; however, her insurance had lapsed and she was not able to get in at that time. She subsequently presented to the emergency department. S he denies any fevers or chills. REVIEW OF SYSTEMS: A ten-system review is negative except for those things mentioned in the history of present illness. PAST MEDICAL HISTORY: Notable for hypertension, diabetes. PAST SURGICAL HISTORY: x2, cardiac ablation, cholecystectomy, and the above-mentioned knee surgery. FAMILY HISTORY: Mother had diabetes. Father of cirrhosis. SOCIAL HISTORY: Patient is a nonsmoker, nondrinker. She is . 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 ALLERGIES: LISINOPRIL. CURRENT MEDICATIONS: Lasix 20 mg every day, aspirin 81 mg every day, amlodipine 10 mg every day, ami triptyline 25 mg twice a day, Coreg 25 b.i.d., atorvastatin 40 mg at bedtime, Tessalon 100 mg t.i.d. p.r.n., insulin 30 units subcu b.i.d., gabapentin 600 b.i.d., ferrous sulfate 325 b.i.d., Cozaar 100 mg every day, metformin 500 b.i.d., Catapres 0.2 p.o. b.i.d., metoclopramide 10 mg a.c. and at bedtim e. PHYSICAL EXAMINATION: VITAL SIGNS: Temperature 99.2, pulse 122, respirations 19, O2 sat 98% on room air, BP 127/78. GENERAL APPEARANCE: Age-appropriate female, obese, no distress. She is awake, alert, and oriented, pleasant, cooperative. HEART: Regular rate and rhythm without murmurs. LUNGS: Clear to auscultation bilaterally with good chest wall expansion, air exchange. ABDOMEN: Soft, nontender, nondistended, positive bowel sounds, no masses, no organomegaly. EXTREMITIES: Warm and dry. Left lower extremity has foul odor. There is a necrotic black foul smel ling wound about 2.5 cm under the left fifth metatarsal head on the plantar surface with an area of n ecrosis extending toward the mid foot dorsally. She has significant tenderness to palpation even ont o the surface of the foot dorsally. Pulses are palpable. LABORATORY DATA: Initial white count 15.2, hemoglobin 10.7, platelets 358. Sodium 133, potassium 5. 1, chloride 100, CO2 of 19, BUN 41, creatinine 2.29, glucose 414. Lactic acid 3.3, repeat 2.8; calci um 10.1. AST is 8, ALT is 9, total protein 9, albumin 3.8. test negative. Foot x-ray les ws soft tissue swelling with no evidence of osteomyelitis. ASSESSMENT AND PLAN: 1. Infected diabetic left foot wound. The patient will be placed on Zosyn. Blood cultures are pend ing. Wound care is seeing the patient. I have discussed with Surgery. Surgery is anticipated with likely partial amputation of the toe and possible left fifth ray. 2. Uncontrolled diabetes. We will place the patient on a sliding scale insulin, Accu-Cheks, diabeti c diet. 3. Chronic kidney disease stage 4. Patient's creatinine is actually slightly better than it was on 05/01/2018 when it was 2.97; prior to that, her readings were variable between 1.1 and 2.1. We will continue with IV fluids. 4. Pseudohyponatremia secondary to hyperglycemia. 5. Hypertension. Continue ARB and amlodipine. 6. Hyperlipidemia. Continue with the atorvastatin.
[2018-06-11 14:44] LABS: Band 3 % (5-11); Eosinophils 6 % (0-10); Hemoglobin 8.1 g/dL (12.0-16.0); Lymphocytes 17 % (21-51); MDiff Complete? YES; Mean Corpuscular HGB CONC 31.7 g/dL (32.0-36.0); Mean Corpuscular Hemoglobin 28.8 pg (27.0-31.0); Mean Corpuscular Volume 90.9 fL (78.0-98.0); Mean Platelet Volume 7.9 fL (7.4-10.4); Monocytes 9 % (0-10); Neutrophil 65 % (42-75); PLT Morphology Comment Appears Adequate; Platelet Count 262 thou/uL (130-400); Polychromasia SLIGHT = 2-3 cells (100X) (0-2/hpf); RBC Distribution Width 11.2 % (11.5-14.5); Red Blood Cell (RBC) Count 2.82 mill/uL (4.20-5.40); White Blood Cell (WBC) Count 12.2 thou/uL (4.8-10.8)
[2018-06-11] MEDS: Piperacillin/Tazobactam 3.375 GM in Sodium Chloride 0.9% 100 ML IVPB SCH ×2 (15:30→20:22)
[2018-06-11] MEDS: Carvedilol 25 MG TAB PO SCH (17:17)
[2018-06-11] MEDS: metFORMIN 500 MG TAB PO SCH (17:17)
[2018-06-11] MEDS: Metoclopramide HCl 10 MG TAB PO SCH ×2 (17:17→20:22)
[2018-06-11] MEDS: HYDROcodone/Acetaminophen 5/325 mg Tablet PO PRN (17:18)
[2018-06-11] MEDS: Atorvastatin Calcium 40 MG TAB PO SCH (20:22)
[2018-06-11] MEDS: Gabapentin 300 MG CAP PO SCH (20:22)
[2018-06-12] MEDS ORDERED: Carvedilol 25 MG TAB PO SCH ×2 (00:01→08:00)
[2018-06-12] MEDS: HYDROcodone/Acetaminophen 5/325 mg Tablet PO PRN ×3 (00:46→18:41)
[2018-06-12] MEDS: Acetaminophen 325 MG TAB PO PRN ×2 (00:55→06:10)
[2018-06-12] MEDS: Piperacillin/Tazobactam 3.375 GM in Sodium Chloride 0.9% 100 ML IVPB SCH ×4 (02:23→22:27)
[2018-06-12 04:25] LABS: #Eosinphils 0.5 thou/uL (0.0-0.7); #Lymphocytes 3.7 thou/uL (1.20-3.40); #Monocytes 1.9 thou/uL (0.11-0.59); #Neutrophils 10.2 thou/uL (1.40-6.50); %Basophils 0.3 % (0.0-1.0); %Lymphocytes 22.5 % (21.0-51.0); %Monocytes 11.8 % (0.0-10.0); %Neutrophils 62.4 % (42.0-75.0); Hemoglobin 7.5 g/dL (12.0-16.0); Mean Corpuscular HGB CONC 31.6 g/dL (32.0-36.0); Mean Corpuscular Volume 91.8 fL (78.0-98.0); Platelet Count 303 thou/uL (130-400); RBC Distribution Width 11.1 % (11.5-14.5); White Blood Cell (WBC) Count 16.4 thou/uL (4.8-10.8)
[2018-06-12 04:28] LABS: Anion Gap 14 mmol/L (10-20); BUN (Urea Nitrogen) 48 mg/dL (7.0-18.7); Calc. Creatinine Clearance 51 mL/min (70-130); Calcium 8.8 mg/dL (7.8-10.44); Carbon Dioxide 22 mmol/L (22-29); Chloride 106 mmol/L (98-107); Estimated GFR-MDRD 18; Glucose 136 mg/dL (70-105); Potassium 5.5 mmol/L (3.5-5.1); Sodium 136 mmol/L (136-145)
[2018-06-12] MEDS: Carvedilol 25 MG TAB PO SCH ×2 (05:01→17:04)
[2018-06-12] MEDS: Lactated Ringer's 1,000 ML IV SCH ×2 (08:33→19:11)
[2018-06-12] MEDS: Amitriptyline HCl 25 MG TAB PO SCH ×2 (08:36→20:10)
[2018-06-12] MEDS: Ferrous Sulfate 325 MG TAB PO SCH ×2 (08:36→17:04)
[2018-06-12] MEDS: Gabapentin 300 MG CAP PO SCH ×2 (08:36→20:10)
[2018-06-12] MEDS ORDERED: Enoxaparin Sodium 40 MG/0.4 ML SYRINGE SC SCH (09:00)
[2018-06-12] MEDS ORDERED: Losartan 25 MG TAB PO SCH (09:00)
[2018-06-12] MEDS: Insulin NPH/Reg Insulin Hm 300 UNITS/3 ML VIAL SC SCH ×2 (09:01→17:04)
[2018-06-12] MEDS: metFORMIN 500 MG TAB PO SCH ×2 (09:01→17:03)
[2018-06-12] MEDS: Metoclopramide HCl 10 MG TAB PO SCH ×4 (09:01→20:10)
[2018-06-12] MEDS: cloNIDine 0.2 MG TAB PO SCH ×2 (09:06→20:10)
[2018-06-12] MEDS: Amlodipine 10 MG TAB PO SCH (09:06)
[2018-06-12] MEDS: Aspirin 81 mg Enteric Coated Tablet PO SCH (09:06)
[2018-06-12] MEDS ORDERED: Bupivacaine HCl 0.5%/Epinephrine 1:200,000/PF 30 ml Vial ONE (11:43)
[2018-06-12] MEDS ORDERED: Famotidine/PF 20 mg/2ml Vial ONE (11:48)
[2018-06-12] MEDS ORDERED: Fentanyl 100 MCG/2 ML VIAL ONE ×2 (11:48→13:36)
[2018-06-12] MEDS ORDERED: Sodium Chloride 0.9% 30 ML ONE (12:08)
[2018-06-12] MEDS ORDERED: Lidocaine 2% PF 5 ML VIAL ONE (12:08)
[2018-06-12] MEDS ORDERED: Promethazine HCl 25 MG/ML VIAL SLOW IVP PRN (13:06)
[2018-06-12] MEDS ORDERED: Ondansetron HCl/PF 4 MG/2 ML Vial IVP PRN (13:06)
[2018-06-12] MEDS ORDERED: Ondansetron PF 4 MG/2 ML Vial ONE (13:45)
[2018-06-12] MEDS ORDERED: PROPOFOL 200 MG/20 ML VIAL ONE (13:45)
[2018-06-12] MEDS ORDERED: Esmolol 100 MG/10 ML VIAL ONE (13:45)
[2018-06-12] MEDS ORDERED: Succinylcholine Chloride 20 MG/ML 10 ml SYRINGE FS ONE (13:45)
[2018-06-12] MEDS ORDERED: traMADol HCl 50 MG TAB PO PRN (14:09)
[2018-06-12] MEDS ORDERED: Acetaminophen 500 MG TAB PO PRN (14:09)
--- NOTE | 2018-06-12 14:16 | OP ---
DATE OF PROCEDURE: 06/12/2018 PREOPERATIVE DIAGNOSES: Metabolic syndrome, morbid obesity, diabetic gangrene, left foot wet with in volvement of the left fourth and fifth toes, good blood supply, poor IV access. POSTOPERATIVE DIAGNOSES: Metabolic syndrome, morbid obesity, diabetic gangrene, left foot wet with i nvolvement of the left fourth and fifth toes, good blood supply, poor IV access. PROCEDURE PERFORMED: Amputation of left fourth and fifth toes and metatarsals. Wound VAC applicatio n by Wound Care. Left subclavian vein central line. SURGEON: Dr. Abelardo Jung ANESTHESIA: General. PROCEDURE IN DETAIL: Patient taken to the operating room where under general anesthesia, left pericl avicular area prepared with ChloraPrep, draped in routine fashion. Seldinger technique used to place a central line. J-wire removed. Catheter secured with 2 interrupted sutures of 3-0 silk. J-wire r emoved. Each port filled with blood and flushed with saline solution. Sterile dressing applied. Left lower extremity, prepped with ChloraPrep, draped in usual fashion. At first, the patient had a gangrenous foul smelling infectious process plantar left foot, beneath the metatarsophalangeal joint, fifth toe and extending towards the fourth toe. Incision was made first to amputate left fifth toe and metatarsal and extending over the fourth toe with underlying soft tissue process extended into th is metatarsophalangeal joint and surrounding soft tissues. Left fourth and fifth toes and metatarsal s dissected free, transected with a bone cutter, resected proximally with rongeurs. Skin and soft ti ssues irrigated. Connective tissue debrided sharply. Hemostasis gained with the cautery. Wound car e team arrived to place wound VAC as the wound was irrigated, good hemostasis obtained.
--- NOTE | 2018-06-12 15:20 | RAD ---
PORTABLE CHEST: HISTORY: Central line placement. COMPARISON: 05/20/2017. FINDINGS: A central line via the left subclavian has been placed. The tip overlies the SVC. Lungs appear well aerated and clear. Linear opacity in the right medial lung base may represent atelectasis. Heart s ize is upper normal but accentuated by this projection. No evidence of pneumothorax. IMPRESSION: Central line appears adequately positioned. POS: [facility]
[2018-06-12] MEDS: HumaLOG 300 UNITS/3 ML VIAL SC PRN ×2 (17:06→20:30)
[2018-06-12] MEDS: Sodium Chloride 0.9% 1,000 ML IV SCH (19:00)
[2018-06-12] MEDS: Atorvastatin Calcium 40 MG TAB PO SCH (20:10)
--- NOTE | 2018-06-12 21:42 | CON ---
DATE OF CONSULTATION: 06/12/2018 NEPHROLOGY CONSULTATION CONSULTING PHYSICIAN: Dr. Mckinnon. REASON FOR CONSULTATION: Acute kidney injury. REASON FOR ADMISSION: Left foot pain. HISTORY OF PRESENT ILLNESS: This is a 43-year female with history of hypertension, type 2 diabetes w ho came to the hospital with above complaints and Nephrology consulted for acute kidney injury. The patient has had followup before when creatinine was 2.2, baseline 3.4. No fever or chills. No nausea, vomiting. PAST MEDICAL HISTORY: Positive for hypertension and type 2 diabetes. PAST SURGICAL HISTORY: , cardiac ablation, cholecystectomy, knee surgeries. HOME MEDICATIONS: Lasix, aspirin, amlodipine, amitriptyline, Coreg, atorvastatin, Tessalon, gabapent in, ferrous sulfate, Cozaar, Catapres, metoclopramide. ALLERGIES: LISINOPRIL. SOCIAL HISTORY: No smoking, alcohol or drug abuse. FAMILY HISTORY: Positive for diabetes. REVIEW OF SYSTEMS: The following complete review of systems was negative, unless otherwise mentioned in the HPI or below: Constitutional: Weight loss or gain, ability to conduct usual activities. Skin: Rash, itching. Eyes: Double vision, pain. ENT/Mouth: Nose bleeding, neck stiffness, pain, tenderness. Cardiovascular: Palpitations, dyspnea on exertion, orthopnea. Respiratory: Shortness of breath, wheezing, cough, hemoptysis, fever or night sweats. Gastrointestinal: Poor appetite, abdominal pain, heartburn, nausea, vomiting, constipation, or diarr hea. Genitourinary: Urgency, frequency, dysuria, nocturia. Musculoskeletal: Pain, swelling. Neurologic/Psychiatric: Anxiety, depression. Allergy/Immunologic: Skin rash, bleeding tendency. PHYSICAL EXAMINATION: GENERAL: This is a morbidly obese female in no apparent distress. VITAL SIGNS: Temperature 97.8, pulse 99, respiratory rate 18, blood pressure 138/86. HEENT: Atraumatic, normocephalic. Oral mucosa is moist. NECK: Supple, no masses. CARDIOVASCULAR: S1, S2. Rate and rhythm regular. RESPIRATORY: Clear. ABDOMEN: Soft. MUSCULOSKELETAL: 1+ edema. DERMATOLOGIC: No rash. NEUROLOGIC: Alert and awake. PSYCHIATRIC: Mood and affect. LABORATORY DATA: Hemoglobin is 7.5, creatinine 5.5, BUN 48, creatinine 3.4. ASSESSMENT AND PLAN: 1. Acute kidney injury on chronic kidney disease stage IV. Agree with hydration. Recommend NS if t olerated. 2. We will stop metformin and losartan at this point given the acute kidney injury and we will also monitor. We will start on renal diet. Renally dose all the medications. 3. Mild hyperkalemia. Limit potassium in the diet. 4. Edema, controlled. 5. Proteinuria. 6. Anemia. Recheck iron studies and we will follow. 7. Morbid obesity. 8. Diabetic nephropathy. 9. Check urine studies. Plan is to monitor renal function. We will follow. Avoid nephrotoxins.
--- NOTE | 2018-06-12 21:47 | PDOC.PN ---
- Subjective Encounter Start Date: 06/12/18 Encounter Start Time: 10:00 Doing ok today. Has some pain. - Objective Resuscitation Status: Resuscitation Status FULL:Full Resuscitation Vital Signs & Weight: Vital Signs (12 hours) Temp Pulse Resp BP BP Pulse Ox 06/12/18 20:16 98.2 F 20 121/72 96 06/12/18 20:01 98.5 F 20 109/76 95 06/12/18 16:23 97.8 F 99 18 138/80 93 L 06/12/18 15:20 103 H 125/62 96 06/12/18 14:54 104 H 18 92/59 L 93 L 06/12/18 14:15 99.1 F 105 H 18 106/55 L 94 L 06/12/18 10:45 98.4 F 110 H 18 107/63 98 Weight Admit Weight 333 lb 12.8 oz Weight 333 lb 12.8 oz Most Recent Monitor Data Heart Rate from ECG 96 I&O: 06/11/18 06/12/18 06/13/18 06:59 06:59 06:59 Intake Total 1600 1820 Balance 1600 1820 Result Diagrams: 06/12/18 03:29 06/12/18 03:29 Additional Labs: Accuchecks 06/12/18 06/12/18 06/12/18 20:19 15:59 10:52 POC Glucose 316 H 261 H 198 H 06/12/18 06/12/18 05:02 00:15 POC Glucose 157 H 128 H Phys Exam - Physical Examination Constitutional: NAD Morbidly obese. Respiratory: no wheezing, no rales, no rhonchi, clear to auscultation bilateral Cardiovascular: RRR, no significant murmur Gastrointestinal: soft, non-tender Musculoskeletal: no edema Left foot dressing Psychiatric: normal affect Dx/Plan (1) Diabetes mellitus with foot ulcer and gangrene Code(s): E11.621 - TYPE 2 DIABETES MELLITUS WITH FOOT ULCER; E11.52 - TYPE 2 DIABETES W DIABETIC PERIPHERAL ANGIOPATHY W GANGRENE; L97.509 - NON-PRESSURE CHRONIC ULCER OTH PRT UNSP FOOT W UNSP SEVERITY Status: Acute Comment: Debridement/amputation today. (2) Acute on chronic kidney failure Code(s): N17.9 - ACUTE KIDNEY FAILURE, UNSPECIFIED; N18.9 - CHRONIC KIDNEY DISEASE, UNSPECIFIED Status: Acute Comment: IVF. Consult Nephrology. (3) Anemia, normocytic normochromic Code(s): D64.9 - ANEMIA, UNSPECIFIED Status: Chronic Comment: CKD with anemia. Transfusion today. Tachycardic, getting surg. (4) Diabetes type 2, controlled Code(s): E11.9 - TYPE 2 DIABETES MELLITUS WITHOUT COMPLICATIONS Status: Chronic Comment: Accuchecks, diabetic diet. SSI. (5) Dyslipidemia Code(s): E78.5 - HYPERLIPIDEMIA, UNSPECIFIED Status: Chronic (6) Hypertension Code(s): I10 - ESSENTIAL (PRIMARY) HYPERTENSION Status: Chronic Comment: Home meds. (7) Morbid obesity with BMI of 50.0-59.9, adult Code(s): E66.01 - MORBID (SEVERE) OBESITY DUE TO EXCESS CALORIES; Z68.43 - BODY MASS INDEX (BMI) 50-59.9, ADULT Status: Chronic - Plan * Surg today. Continue abx and follow cultures. * Control blood sugars. * Nephrology consult. * Transfusion.
[2018-06-13 00:35] LABS: Creatinine, Urine 182.96 mg/dL (47-110)
[2018-06-13] MEDS: Sodium Chloride 0.9% 1,000 ML IV SCH ×3 (05:49→18:53)
[2018-06-13] MEDS: HYDROcodone/Acetaminophen 5/325 mg Tablet PO PRN ×2 (05:49→20:22)
[2018-06-13] MEDS: HumaLOG 300 UNITS/3 ML VIAL SC PRN ×4 (06:01→22:20)
[2018-06-13] MEDS: Piperacillin/Tazobactam 3.375 GM in Sodium Chloride 0.9% 100 ML IVPB SCH ×3 (06:05→22:19)
[2018-06-13 06:20] LABS: #Basophils 0.1 thou/uL (0.0-0.2); #Eosinphils 0.6 thou/uL (0.0-0.7); #Lymphocytes 3.1 thou/uL (1.20-3.40); #Monocytes 2.2 thou/uL (0.11-0.59); #Neutrophils 12.6 thou/uL (1.40-6.50); %Basophils 0.3 % (0.0-1.0); %Lymphocytes 16.9 % (21.0-51.0); %Monocytes 11.7 % (0.0-10.0); %Neutrophils 68.1 % (42.0-75.0); Hemoglobin 8.1 g/dL (12.0-16.0); Mean Corpuscular HGB CONC 32.3 g/dL (32.0-36.0); Mean Corpuscular Hemoglobin 29.3 pg (27.0-31.0); Mean Corpuscular Volume 90.8 fL (78.0-98.0); Mean Platelet Volume 7.7 fL (7.4-10.4); Platelet Count 292 thou/uL (130-400); RBC Distribution Width 11.4 % (11.5-14.5); Red Blood Cell (RBC) Count 2.75 mill/uL (4.20-5.40); White Blood Cell (WBC) Count 18.4 thou/uL (4.8-10.8)
[2018-06-13 06:21] LABS: Reticulocyte Count 1.2 % (0.5-1.5)
[2018-06-13 06:36] LABS: Anion Gap 16 mmol/L (10-20); BUN (Urea Nitrogen) 53 mg/dL (7.0-18.7); Calc. Creatinine Clearance 46 mL/min (70-130); Calcium 8.6 mg/dL (7.8-10.44); Carbon Dioxide 18 mmol/L (22-29); Chloride 108 mmol/L (98-107); Estimated GFR-MDRD 16; Glucose 213 mg/dL (70-105); Iron 10 ug/dL (50-170); Iron Binding Capacity, Total 125 mcg/dL (265-497); Sodium 137 mmol/L (136-145)
[2018-06-13] MEDS: Metoclopramide HCl 10 MG TAB PO SCH ×4 (09:22→20:22)
[2018-06-13] MEDS: Gabapentin 300 MG CAP PO SCH ×2 (09:22→20:21)
[2018-06-13] MEDS: cloNIDine 0.2 MG TAB PO SCH ×2 (09:22→20:22)
[2018-06-13] MEDS: Amlodipine 10 MG TAB PO SCH (09:22)
[2018-06-13] MEDS: Aspirin 81 mg Enteric Coated Tablet PO SCH (09:22)
[2018-06-13] MEDS: Amitriptyline HCl 25 MG TAB PO SCH ×2 (09:23→20:22)
[2018-06-13] MEDS: Ferrous Sulfate 325 MG TAB PO SCH ×2 (09:23→16:50)
[2018-06-13] MEDS: Carvedilol 25 MG TAB PO SCH ×2 (09:23→16:50)
[2018-06-13] MEDS: Insulin NPH/Reg Insulin Hm 300 UNITS/3 ML VIAL SC SCH ×2 (09:23→16:56)
[2018-06-13] MEDS: Enoxaparin Sodium 30 MG/0.3 ML SYRINGE SC SCH (09:24)
--- NOTE | 2018-06-13 10:31 | ULT ---
BILATERAL UPPER EXTREMITY VENOUS DOPPLER ULTRASOUND FOR DIALYSIS ACCESS: HISTORY: End stage renal disease. FINDINGS: RIGHT UPPER EXTREMITY The right cephalic vein measures 2.5 mm in the proximal arm, 3.2 mm in the mid arm, 2.5 mm in the dis jean arm, 2.3 mm in the cubital fossa, 1.8 mm in the proximal forearm, and 1.9 mm in the mid and dista l forearm. The right basilic vein measures 3.7 mm in the proximal arm, 3.5 mm in the mid arm, 3.4 mm in the dist al arm, 2.6 mm in the cubital fossa, 2.1 mm in the proximal forearm, 2.4 mm in the mid forearm, and 2 .1 mm in the distal forearm. The right brachial artery measures 3.5 mm, radial artery 2.2 mm, and ulnar artery 1.9 mm. LEFT UPPER EXTREMITY: The left cephalic vein measures 4.3 mm in the proximal arm, 3.7 mm in the mid and distal arm, 2.2 mm in the cubital fossa, 1.1 mm in the proximal forearm, 1.4 mm in the mid forearm, and 1.5 mm in the di stal forearm. The left basilic vein measures 4.3 mm in the proximal arm, 3.8 mm in the mid arm, 4.2 mm in the dista l arm, 3.4 mm in the cubital fossa, 2.9 mm in the proximal forearm, 2.7 mm in the mid forearm, and 2. 6 mm in the distal forearm. The left brachial artery measures 3.9 mm, radial artery 1.7 mm, and ulnar artery 2 mm. POS: [facility]
--- NOTE | 2018-06-13 13:30 | PDOC.PN ---
- Subjective Encounter Start Date: 06/13/18 Encounter Start Time: 10:30 Doing well overall. Has had pain meds and a little sleepy. - Objective Resuscitation Status: Resuscitation Status FULL:Full Resuscitation Vital Signs & Weight: Vital Signs (12 hours) Temp Pulse Resp BP BP Pulse Ox 06/13/18 09:22 114 H 151/69 H 06/13/18 09:09 98 06/13/18 04:00 98.1 F 76 20 167/85 H 94 L Weight Admit Weight 333 lb 12.8 oz Weight 333 lb 12.8 oz Most Recent Monitor Data Heart Rate from ECG 90 I&O: 06/12/18 06/13/18 06/14/18 06:59 06:59 06:59 Intake Total 1600 3470 Balance 1600 3470 Result Diagrams: 06/13/18 05:45 06/13/18 05:45 Additional Labs: Accuchecks 06/13/18 06/13/18 06/12/18 11:41 05:37 20:19 POC Glucose 230 H 214 H 316 H 06/12/18 15:59 POC Glucose 261 H Phys Exam - Physical Examination Constitutional: NAD Obse Respiratory: no wheezing, no rales, no rhonchi, clear to auscultation bilateral Cardiovascular: RRR, no significant murmur Gastrointestinal: soft, non-tender, no distention, positive bowel sounds Musculoskeletal: no edema Left foot dressed with wound vac in place. Neurological: non-focal Psychiatric: normal affect Dx/Plan (1) Diabetes mellitus with foot ulcer and gangrene Code(s): E11.621 - TYPE 2 DIABETES MELLITUS WITH FOOT ULCER; E11.52 - TYPE 2 DIABETES W DIABETIC PERIPHERAL ANGIOPATHY W GANGRENE; L97.509 - NON-PRESSURE CHRONIC ULCER OTH PRT UNSP FOOT W UNSP SEVERITY Status: Acute Comment: Debridement/amputation of left 4th, 5th toes on 06/12/18. Wound vac. Initial cx looks like proteus. Continue Zosyn. (2) Acute on chronic kidney failure Code(s): N17.9 - ACUTE KIDNEY FAILURE, UNSPECIFIED; N18.9 - CHRONIC KIDNEY DISEASE, UNSPECIFIED Status: Acute Comment: Getting a littlw worse. IVF. Consult Nephrology. (3) Diabetes type 2, controlled Code(s): E11.9 - TYPE 2 DIABETES MELLITUS WITHOUT COMPLICATIONS Status: Chronic Comment: Accuchecks, diabetic diet. SSI. (4) Dyslipidemia Code(s): E78.5 - HYPERLIPIDEMIA, UNSPECIFIED Status: Chronic Comment: Atorvastin. (5) Hypertension Code(s): I10 - ESSENTIAL (PRIMARY) HYPERTENSION Status: Chronic Comment: Home meds. Coreg, amlodipine, Losartan. (6) Morbid obesity with BMI of 50.0-59.9, adult Code(s): E66.01 - MORBID (SEVERE) OBESITY DUE TO EXCESS CALORIES; Z68.43 - BODY MASS INDEX (BMI) 50-59.9, ADULT Status: Chronic (7) Iron deficiency anemia Code(s): D50.9 - IRON DEFICIENCY ANEMIA, UNSPECIFIED Status: Acute Comment: Iron supplementation. Transfusion 06/12/18. - Plan * above.
--- NOTE | 2018-06-13 17:23 | PRG ---
DATE OF SERVICE: 06/13/2018 SUBJECTIVE: Patient was seen and examined at bedside and overnight events noted. Patient denies any shortness of breath or chest pain or palpitation. No history of nausea or vomiting or diarrhea or f ever or chills or cramps. OBJECTIVE: GENERAL: This is a morbidly obese female, in no apparent distress. VITAL SIGNS: Temperature (00:15), pulse 107, respiratory (00:16), blood pressure 141/83. HEENT: Atraumatic, normocephalic. Oral mucosa is moist. NECK: Supple. CARDIOVASCULAR: S1, S2 heard. Rate and rhythm regular. RESPIRATORY: Clear to auscultation. GASTROINTESTINAL: Abdomen is soft. MUSCULOSKELETAL: No tenderness, no edema. DERMATOLOGIC: No skin rash. NEUROLOGIC: Alert and awake and oriented x3. No focal neurologic deficits. Moving all the extremit ies. PSYCHIATRIC: Mood and affect normal. LABORATORY DATA: Potassium is 5.0, BUN 53, creatinine 3.7. ASSESSMENT AND PLAN: 1. Acute kidney injury, chronic kidney stage 4 with worsening creatinine. Medications stopped yeste rday. We will continue to monitor. Continue IV fluids if tolerated. 2. Edema, controlled. 3. Proteinuria. 4. Anemia. 5. Morbid obesity. 6. Diabetic nephropathy. 7. We will continue to follow.
--- NOTE | 2018-06-13 17:50 | EKG ---
Test Reason : ER INDICATION Blood Pressure : / mmHG Vent. Rate : 138 BPM Atrial Rate : 138 BPM P-R Int : 132 ms QRS Dur : 082 ms QT Int : 280 ms P-R-T Axes : 057 003 037 degrees QTc Int : 424 ms Sinus tachycardia Minimal voltage criteria for LVH, may be normal variant Borderline ECG Confirmed by STEVO MASON ([id number]), online content editor RANDA ARZATE ([id number]) on 06/13/2018 5:49:08 PM Referred By: GRANT Confirmed By:STEVO MASON
[2018-06-13] MEDS ORDERED: Sodium Chloride 0.9% 500 ML IVPB SCH (18:15)
[2018-06-13] MEDS: Atorvastatin Calcium 40 MG TAB PO SCH (20:22)
[2018-06-14] MEDS: Sodium Chloride 0.9% 1,000 ML IV SCH ×2 (05:06→16:46)
[2018-06-14] MEDS: Piperacillin/Tazobactam 3.375 GM in Sodium Chloride 0.9% 100 ML IVPB SCH ×3 (05:06→22:07)
[2018-06-14] MEDS: Enoxaparin Sodium 30 MG/0.3 ML SYRINGE SC SCH (07:57)
[2018-06-14] MEDS: cloNIDine 0.2 MG TAB PO SCH ×2 (07:58→19:59)
[2018-06-14] MEDS: Carvedilol 25 MG TAB PO SCH ×2 (07:58→16:46)
[2018-06-14] MEDS: Ferrous Sulfate 325 MG TAB PO SCH ×2 (07:58→16:46)
[2018-06-14] MEDS: Amlodipine 10 MG TAB PO SCH (07:58)
[2018-06-14] MEDS: Metoclopramide HCl 10 MG TAB PO SCH ×4 (07:58→19:58)
[2018-06-14] MEDS: Gabapentin 300 MG CAP PO SCH ×2 (07:59→19:58)
[2018-06-14] MEDS: Aspirin 81 mg Enteric Coated Tablet PO SCH (07:59)
[2018-06-14] MEDS: Insulin NPH/Reg Insulin Hm 300 UNITS/3 ML VIAL SC SCH ×2 (07:59→17:42)
[2018-06-14] MEDS: Amitriptyline HCl 25 MG TAB PO SCH ×2 (07:59→19:58)
[2018-06-14] MEDS: HYDROcodone/Acetaminophen 5/325 mg Tablet PO PRN ×2 (08:53→20:04)
--- NOTE | 2018-06-14 10:30 | EKG ---
Test Reason : Blood Pressure : / mmHG Vent. Rate : 102 BPM Atrial Rate : 102 BPM P-R Int : 164 ms QRS Dur : 086 ms QT Int : 348 ms P-R-T Axes : 051 011 045 degrees QTc Int : 453 ms Sinus tachycardia Otherwise normal ECG When compared with ECG of 10-JUN-2018 17:15, (Unconfirmed) No significant change was found Confirmed by DR. Zabrina NINA ([id number]) on 06/14/2018 10:30:15 AM Referred By: PAULIE Confirmed By:DR. Zabrina NINA
[2018-06-14 11:26] LABS: Anion Gap 14 mmol/L (10-20); BUN (Urea Nitrogen) 56 mg/dL (7.0-18.7); Calc. Creatinine Clearance 42 mL/min (70-130); Calcium 8.3 mg/dL (7.8-10.44); Carbon Dioxide 17 mmol/L (22-29); Chloride 108 mmol/L (98-107); Estimated GFR-MDRD 14; Glucose 194 mg/dL (70-105); Potassium 4.6 mmol/L (3.5-5.1)
[2018-06-14 11:35] LABS: Sodium 134 mmol/L (136-145)
--- NOTE | 2018-06-14 12:01 | PRG ---
DATE OF SERVICE: 06/14/2018 SUBJECTIVE: Patient was seen and examined at bedside and overnight events noted. Patient denies any shortness of breath or chest pain or palpitation. No history of nausea or vomiting or diarrhea or f ever or chills or cramps. OBJECTIVE: GENERAL: This is a morbidly obese female in no apparent distress. VITAL SIGNS: Temperature 98.4, pulse 100, respiratory 18, blood pressure 142/82. HEENT: Atraumatic, normocephalic, oral mucosa is moist. NECK: Supple. CARDIOVASCULAR: S1, S2 heard, rate and rhythm regular. RESPIRATORY: Clear to auscultation. GASTROINTESTINAL: Abdomen is soft. MUSCULOSKELETAL: No tenderness, no edema. DERMATOLOGIC: No skin rash. NEUROLOGIC: Alert and awake and oriented X3, no focal neurologic deficits. Moving all the extremiti es. PSYCHIATRIC: Mood and affect normal. LABORATORY DATA: Not done today. ASSESSMENT AND PLAN: 1. Acute kidney injury on chronic kidney disease stage 4, recheck labs. 2. Edema, controlled. 3. Proteinuria. 4. Anemia 5. Morbid obesity. 6. Diabetic nephropathy. 7. We will check labs and will follow.
[2018-06-14] MEDS: HumaLOG 300 UNITS/3 ML VIAL SC PRN ×2 (12:31→17:42)
--- NOTE | 2018-06-14 14:12 | PDOC.PN ---
- Subjective Encounter Start Date: 06/14/18 Encounter Start Time: 11:00 Still having some pain. Otherwise no complaints. Has not had a BM since admission. Requiring some pain meds. - Objective Resuscitation Status: Resuscitation Status FULL:Full Resuscitation Vital Signs & Weight: Vital Signs (12 hours) Temp Pulse Resp BP BP Pulse Ox 06/14/18 07:58 100 142/82 H 06/14/18 07:45 96 06/14/18 07:18 98.4 F 100 20 142/82 H 96 06/14/18 04:00 98 F 73 16 109/64 97 Weight Admit Weight 333 lb 12.8 oz Weight 333 lb 12.8 oz Most Recent Monitor Data Heart Rate from ECG 90 I&O: 06/13/18 06/14/18 06/15/18 06:59 06:59 06:59 Intake Total 3470 1300 Balance 3470 1300 Result Diagrams: 06/13/18 05:45 06/14/18 10:59 Additional Labs: Accuchecks 06/14/18 06/14/18 06/13/18 11:02 04:25 21:02 POC Glucose 212 H 132 H 269 H 06/13/18 16:21 POC Glucose 197 H Phys Exam - Physical Examination Constitutional: NAD Morbidy obese. Respiratory: no wheezing, no rales, no rhonchi, clear to auscultation bilateral Cardiovascular: RRR, no significant murmur Gastrointestinal: soft, non-tender, no distention, positive bowel sounds Musculoskeletal: no edema Left foot with wound vac and surg dressing. Psychiatric: normal affect Deviation from normal: Somnolent, but easily awakened and appropriate. Dx/Plan (1) Diabetes mellitus with foot ulcer and gangrene Code(s): E11.621 - TYPE 2 DIABETES MELLITUS WITH FOOT ULCER; E11.52 - TYPE 2 DIABETES W DIABETIC PERIPHERAL ANGIOPATHY W GANGRENE; L97.509 - NON-PRESSURE CHRONIC ULCER OTH PRT UNSP FOOT W UNSP SEVERITY Status: Acute Comment: Debridement/amputation of left 4th, 5th toes on 06/12/18. Wound vac. Initial cx looks like proteus. Continue Zosyn. (2) Acute on chronic kidney failure Code(s): N17.9 - ACUTE KIDNEY FAILURE, UNSPECIFIED; N18.9 - CHRONIC KIDNEY DISEASE, UNSPECIFIED Status: Acute Comment: Getting a little worse. IVF. Consult Nephrology. At Stage IV now. (3) Diabetes type 2, controlled Code(s): E11.9 - TYPE 2 DIABETES MELLITUS WITHOUT COMPLICATIONS Status: Chronic Comment: Accuchecks, diabetic diet. SSI. (4) Dyslipidemia Code(s): E78.5 - HYPERLIPIDEMIA, UNSPECIFIED Status: Chronic Comment: Atorvastin. (5) Hypertension Code(s): I10 - ESSENTIAL (PRIMARY) HYPERTENSION Status: Chronic Comment: Home meds. Coreg, amlodipine, Losartan. (6) Morbid obesity with BMI of 50.0-59.9, adult Code(s): E66.01 - MORBID (SEVERE) OBESITY DUE TO EXCESS CALORIES; Z68.43 - BODY MASS INDEX (BMI) 50-59.9, ADULT Status: Chronic (7) Iron deficiency anemia Code(s): D50.9 - IRON DEFICIENCY ANEMIA, UNSPECIFIED Status: Acute Comment: Iron supplementation. Transfusion 06/12/18. (8) Proteus mirabilis infection Code(s): B96.4 - PROTEUS (MIRABILIS) (MORGANII) CAUSING DIS CLASSD ELSWHR Status: Acute - Plan * Continue IV Zosyn. * Manage worsening renal function. * Can likely change to oral antibiotics tomorrow.
[2018-06-14] MEDS: Atorvastatin Calcium 40 MG TAB PO SCH ×2 (19:58→20:01)
[2018-06-14] MEDS: Senokot S 8.6-50 MG TAB PO SCH (19:58)
[2018-06-15] MEDS: Piperacillin/Tazobactam 3.375 GM in Sodium Chloride 0.9% 100 ML IVPB SCH ×2 (04:46→06:09)
[2018-06-15] MEDS: Sodium Chloride 0.9% 1,000 ML IV SCH ×2 (04:48→15:01)
[2018-06-15] MEDS: HumaLOG 300 UNITS/3 ML VIAL SC PRN ×2 (06:09→12:30)
[2018-06-15] MEDS: Amlodipine 10 MG TAB PO SCH (08:02)
[2018-06-15] MEDS: Aspirin 81 mg Enteric Coated Tablet PO SCH (08:02)
[2018-06-15] MEDS: Gabapentin 300 MG CAP PO SCH ×2 (08:02→20:05)
[2018-06-15] MEDS: Metoclopramide HCl 10 MG TAB PO SCH ×4 (08:02→20:05)
[2018-06-15] MEDS: Carvedilol 25 MG TAB PO SCH ×2 (08:02→17:06)
[2018-06-15] MEDS: Ferrous Sulfate 325 MG TAB PO SCH ×2 (08:02→17:05)
[2018-06-15] MEDS: cloNIDine 0.2 MG TAB PO SCH ×2 (08:02→20:05)
[2018-06-15] MEDS: Senokot S 8.6-50 MG TAB PO SCH ×2 (08:02→20:05)
[2018-06-15] MEDS: Enoxaparin Sodium 30 MG/0.3 ML SYRINGE SC SCH (08:03)
[2018-06-15] MEDS: Amitriptyline HCl 25 MG TAB PO SCH ×2 (08:03→20:05)
[2018-06-15] MEDS: Insulin NPH/Reg Insulin Hm 300 UNITS/3 ML VIAL SC SCH ×2 (08:04→18:30)
[2018-06-15] MEDS: Famotidine 20 MG TAB PO SCH (08:52)
[2018-06-15] MEDS: Saccharomyces boulardii 250 MG CAP PO SCH ×2 (08:52→20:05)
--- NOTE | 2018-06-15 11:37 | PDOC.PN ---
- Subjective Encounter Start Date: 06/15/18 Encounter Start Time: 10:00 Less pain. Feeling well in general. No new complaints. - Objective Resuscitation Status: Resuscitation Status FULL:Full Resuscitation Vital Signs & Weight: Vital Signs (12 hours) Temp Pulse Resp BP BP Pulse Ox 06/15/18 08:02 106 H 120/82 06/15/18 08:00 99 06/15/18 07:36 99.2 F 106 H 18 120/82 99 Weight Admit Weight 333 lb 12.8 oz Weight 333 lb 12.8 oz Most Recent Monitor Data Heart Rate from ECG 90 I&O: 06/14/18 06/15/18 06/16/18 06:59 06:59 06:59 Intake Total 1300 1650 Balance 1300 1650 Result Diagrams: 06/13/18 05:45 06/14/18 10:59 Additional Labs: Accuchecks 06/15/18 06/14/18 06/14/18 04:56 19:52 15:36 POC Glucose 153 H 199 H 157 H 06/14/18 11:02 POC Glucose 212 H Phys Exam - Physical Examination Constitutional: NAD Morbidly obese. Respiratory: no wheezing, no rales, no rhonchi, clear to auscultation bilateral Cardiovascular: RRR, no significant murmur Gastrointestinal: soft, non-tender, no distention, positive bowel sounds Musculoskeletal: no edema Left foot dressed, wound vac. Slight TTP of pretib area at ankle. No erythema or edema. Neurological: non-focal Psychiatric: normal affect, A&O x 3 Dx/Plan (1) Diabetes mellitus with foot ulcer and gangrene Code(s): E11.621 - TYPE 2 DIABETES MELLITUS WITH FOOT ULCER; E11.52 - TYPE 2 DIABETES W DIABETIC PERIPHERAL ANGIOPATHY W GANGRENE; L97.509 - NON-PRESSURE CHRONIC ULCER OTH PRT UNSP FOOT W UNSP SEVERITY Status: Acute Comment: Debridement/amputation of left 4th, 5th toes on 06/12/18. Wound vac. Growing Proteus. Generally sensitive. Stopping Zosyn due to the worsening renal function per the rec of Dr. Encarnacion Change to oral abx. (2) Acute on chronic kidney failure Code(s): N17.9 - ACUTE KIDNEY FAILURE, UNSPECIFIED; N18.9 - CHRONIC KIDNEY DISEASE, UNSPECIFIED Status: Acute Comment: Getting a little worse daily. D/ W Nephrology. Stopping the Zosyn a potential source of worsening renal function. Continue to monitor. (3) Diabetes type 2, controlled Code(s): E11.9 - TYPE 2 DIABETES MELLITUS WITHOUT COMPLICATIONS Status: Chronic Comment: Accuchecks, diabetic diet. SSI. (4) Dyslipidemia Code(s): E78.5 - HYPERLIPIDEMIA, UNSPECIFIED Status: Chronic Comment: Atorvastin. (5) Hypertension Code(s): I10 - ESSENTIAL (PRIMARY) HYPERTENSION Status: Chronic Comment: Home meds. Coreg, amlodipine, Losartan. (6) Morbid obesity with BMI of 50.0-59.9, adult Code(s): E66.01 - MORBID (SEVERE) OBESITY DUE TO EXCESS CALORIES; Z68.43 - BODY MASS INDEX (BMI) 50-59.9, ADULT Status: Chronic (7) Iron deficiency anemia Code(s): D50.9 - IRON DEFICIENCY ANEMIA, UNSPECIFIED Status: Acute Comment: Iron supplementation. Transfusion 06/12/18. (8) Proteus mirabilis infection Code(s): B96.4 - PROTEUS (MIRABILIS) (MORGANII) CAUSING DIS CLASSD ELSWHR Status: Acute Comment: Avoiding PCN/Ceph abx due to worsening renal function. Starting oral Levaquin. [employer] regarding control. - Plan * Continue inpatient until renal function stabilized. * Continue therapy, wound vac and abx.
[2018-06-15 12:12] LABS: Anion Gap 13 mmol/L (10-20); BUN (Urea Nitrogen) 55 mg/dL (7.0-18.7); Calc. Creatinine Clearance 58 mL/min (70-130); Calcium 8.5 mg/dL (7.8-10.44); Carbon Dioxide 17 mmol/L (22-29); Chloride 112 mmol/L (98-107); Estimated GFR-MDRD 21; Glucose 143 mg/dL (70-105); Potassium 4.4 mmol/L (3.5-5.1); Sodium 138 mmol/L (136-145)
--- NOTE | 2018-06-15 19:21 | PRG ---
DATE OF SERVICE: 06/15/2018 SUBJECTIVE: Patient was seen and examined at bedside and overnight events noted. Patient denies any shortness of breath or chest pain or palpitation. No history of nausea or vomiting or diarrhea or f ever or chills or cramps. OBJECTIVE: GENERAL: This is a morbidly obese female in no apparent distress. VITAL SIGNS: Temperature 98.1, pulse 99, respiratory rate 18, blood pressure 132/77. HEENT: Atraumatic, normocephalic. Oral mucosa is moist. NECK: Supple CARDIOVASCULAR: S1, S2 heard. Rate and rhythm regular. RESPIRATORY: Clear to auscultation. GASTROINTESTINAL: Abdomen is soft. MUSCULOSKELETAL: No tenderness, no edema. DERMATOLOGIC: No skin rash. NEUROLOGIC: Alert, awake, and oriented x3. No focal neurologic deficits. Moving all the extremitie s. PSYCHIATRIC: Mood and affect normal. LABORATORY DATA: Potassium is 4.4, BUN is 55, creatinine is 3.02. ASSESSMENT AND PLAN: 1. Acute kidney injury. Renal function is slightly better today. We will continue to monitor. 2. Chronic kidney disease, stage 4. 3. Edema, controlled. 4. Proteinuria. 5. Morbid obesity. 6. Diabetic nephropathy. Okay with discontinuing Zosyn. Renal function is slightly better today. We will continue to monitor .
[2018-06-15] MEDS: Atorvastatin Calcium 40 MG TAB PO SCH (20:05)
[2018-06-15] MEDS: HYDROcodone/Acetaminophen 5/325 mg Tablet PO PRN (20:06)
[2018-06-16] MEDS: Sodium Chloride 0.9% 1,000 ML IV SCH ×3 (02:02→14:38)
[2018-06-16] MEDS: HumaLOG 300 UNITS/3 ML VIAL SC PRN ×2 (05:01→11:44)
[2018-06-16 05:37] LABS: Anion Gap 12 mmol/L (10-20); BUN (Urea Nitrogen) 47 mg/dL (7.0-18.7); Calc. Creatinine Clearance 78 mL/min (70-130); Calcium 8.7 mg/dL (7.8-10.44); Carbon Dioxide 16 mmol/L (22-29); Chloride 114 mmol/L (98-107); Estimated GFR-MDRD 29; Glucose 143 mg/dL (70-105); Potassium 4.3 mmol/L (3.5-5.1); Sodium 138 mmol/L (136-145)
[2018-06-16] MEDS: Metoclopramide HCl 10 MG TAB PO SCH ×3 (07:56→16:35)
[2018-06-16] MEDS: Insulin NPH/Reg Insulin Hm 300 UNITS/3 ML VIAL SC SCH ×2 (07:58→16:39)
[2018-06-16] MEDS: Enoxaparin Sodium 30 MG/0.3 ML SYRINGE SC SCH (08:08)
[2018-06-16] MEDS: metroNIDAZOLE 500 MG TAB PO SCH ×2 (08:57→15:20)
[2018-06-16] MEDS: Saccharomyces boulardii 250 MG CAP PO SCH (08:57)
[2018-06-16] MEDS: Amlodipine 10 MG TAB PO SCH (08:57)
[2018-06-16] MEDS: Senokot S 8.6-50 MG TAB PO SCH (08:57)
[2018-06-16] MEDS: Aspirin 81 mg Enteric Coated Tablet PO SCH (08:57)
[2018-06-16] MEDS: Ferrous Sulfate 325 MG TAB PO SCH ×2 (08:58→16:35)
[2018-06-16] MEDS: Amitriptyline HCl 25 MG TAB PO SCH (08:58)
[2018-06-16] MEDS: cloNIDine 0.2 MG TAB PO SCH (08:58)
[2018-06-16] MEDS: Famotidine 20 MG TAB PO SCH (08:58)
[2018-06-16] MEDS: Carvedilol 25 MG TAB PO SCH ×2 (08:59→16:35)
[2018-06-16] MEDS: Gabapentin 300 MG CAP PO SCH (08:59)
[2018-06-16] MEDS: HYDROcodone/Acetaminophen 5/325 mg Tablet PO PRN (10:40)
--- NOTE | 2018-06-16 11:58 | PRG ---
DATE OF SERVICE: 06/16/2018 SUBJECTIVE: This is a 46-year-old female being seen for end-stage renal disease. The patient denies any nausea, vomiting or chest pain. PHYSICAL EXAMINATION: GENERAL: Patient is awake, alert. VITAL SIGNS: Afebrile, pulse 100, breathing 16, blood pressure 144/89. OBJECTIVE: See above. Awake, alert, in no acute distress. GENERAL APPEARANCE AND MENTAL STATUS: Fair. HEAD/NECK: Normocephalic. Atraumatic. EYES: EOMI. No deformity. EARS: Clear. No ulcers. NOSE: Intact. No lesions. MOUTH: Clear. No discharge. THROAT: Clear. No exudate. LUNGS: Clear. No crackles. CARDIAC: S1, S2. No rub. ABDOMEN: Benign. BS+. GENITALIA/RECTUM: Alicia absent. BACK/EXTREMITIES: Edema 0+ Ulcer- NEUROLOGICAL: Alert and motor intact. SKIN: Rash- Bruise- LYMPHATICS: Edema- Ulcer- LABORATORY: Hemoglobin 8.1. ASSESSMENT AND RECOMMENDATIONS: 1. Chronic kidney disease stage 4, stable. 2. Acute kidney injury, improving. 3. Hypertension, stable. 4. Anemia, stable. 5. Metabolic acidosis, stable. No indication for dialysis.
--- NOTE | 2018-06-16 12:07 | PRG ---
DATE OF SERVICE: 06/16/2018 Chidi Newton is doing well today. Her wound VAC is removed and her wound looks good. There is no e vidence of infection. There is healthy granulation tissue. Culture results noted. From a surgical standpoint, the patient will be discharged home with outpatient wound VAC twice a week at [facility] Wound Care. I have already put in a consult medical case manager to arrange an outpatient appointme nt with Wound care, . She could be sent home on Augmentin twice a day for 10 days. I will s ee her in followup in Wound Care and they can call me from Wound Care in about 2-3 weeks to view her wound. She can weightbear as tolerated, use a postoperative shoe when out of bed. She will need [facility] appointments with Nephrology for chronic kidney disease which seems to be improving since the w eekend.
[2018-06-16 17:05] VITALS: BP 139/86; TEMP 97.7
--- NOTE | 2018-06-16 19:08 | CON ---
DATE OF CONSULTATION: 06/16/2018 REASON FOR CONSULTATION: Osteomyelitis of the left foot. HISTORY OF PRESENT ILLNESS: A 46-year-old who has a history of type 2 diabetes, hypertension, and de veloped inflammatory changes in the left lateral forefoot a few weeks before admission following a pe riod where she had a callus. This developed inflammatory changes with an odor and she was admitted. Evaluation included a foot x-ray which demonstrated soft tissue wound but no destructive osteolysis or acute fracture demonstrated. She ended up with an amputation of his fourth and fifth metatarsals and ray of the left foot. The surgical procedure was reviewed. The pathology is available which les wed ischemic ulceration with gangrene margins and viable skin and soft tissue margins. Currently, Ms Oin Newton appears in no distress, a little bit of wheezing. No headaches. No chest pain. A little b it of cough. No abdominal pain. No diarrhea. She is voiding spontaneously without any evidence of urinary retention. PAST MEDICAL HISTORY: Includes type 2 diabetes, obesity, hypertension. PAST SURGICAL HISTORY: , cardiac ablation, cholecystectomy. FAMILY HISTORY: Type 2 diabetes and liver cirrhosis in the father. SOCIAL HISTORY: Never a smoker. . ALLERGIES: LISINOPRIL. CURRENT MEDICATIONS: Tylenol, [place], Elavil, Norvasc, Ecotrin, Lipitor, Coreg, Catapres, Lovenox, Pe pcid, Neurontin, insulin, levofloxacin, metoclopramide, Flagyl. PHYSICAL EXAMINATION: VITAL SIGNS: T-max 100.9. She has been afebrile for the past few days. Other vital signs are lawrence l. SKIN: Remarkable for the area of ulceration at the bottom aspect of the lateral left forefoot with a black eschar at the base and hyperkeratosis surrounding this area. Following the amputation, there is a wide area of amputation at the site with a fresh appearance of the wound base. She has no lymph adenopathy. Pulses are 1+ dorsalis pedis. Cap refill is normal. HEENT: Ocular movements conjugate. Oral cavity normal. NECK: Supple. LUNGS: Symmetric air entry. Faint expiratory wheezing noted, both hemithoraces. HEART: S1, S2, regular rate. No S3, S4. ABDOMEN: Soft, not distended or tender. No ascites. No bladder distention. EXTREMITIES: No joint inflammatory process noted. NEUROLOGIC: Cognitive function appears to be intact. LABORATORY DATA: White cell count went up from 15-18,000, hemoglobin 8.1, platelets 292 with 16% lym phocytes, 68% neutrophils. Chemistry with a creatinine of 2.25, which is about the same as on admiss ion, GFR calculated around 29. The iron was 10. Liver profile normal. Albumin 3.0, globulin 4.1. Urinalysis random total protein 81. Microbiology with Prevotella and group B Streptococcus as well a s Proteus mirabilis. ASSESSMENT: 1. Type 2 diabetes. 2. Neuropathy. 3. Callus with ulcer gangrene of the distal left lateral foot, status post amputation of the fourth and fifth rays with polymicrobial alesia indicated above. DISCUSSION: In view of the adequate vascular supply and the apparent adequate margin of amputation, would recommend a combination of ciprofloxacin plus Augmentin. Ciprofloxacin would cover Proteus and Augmentin would cover 100% of the Prevotella plus group B Streptococcus. Treatment duration around 2 weeks approximately. Follow up in my clinic as needed to make sure that there is proper healing of the area. There are some risks of recrudescence of the inflammatory process. The amputation will a lter dynamic foot dynamics, though sometimes it can be associated with subsequent complications.
== END 2018-06-16 18:20 | disposition home health service (06) | DRG 617 ==
LOC: EDBD → ERS 16:59 → T4-A 19:15
PROVIDERS: ADMIT Internal Medicine; ATTEND Internal Medicine
PROC: 0Y6W0Z0 Detachment at Left 4th Toe, Complete, Open Approach (ICD-10-PCS; principal; 2018-06-12)
PROC: 0Y6Y0Z0 Detachment at Left 5th Toe, Complete, Open Approach (ICD-10-PCS; 2018-06-12)
PROC: 05H633Z Insertion of Infusion Device into Left Subclavian Vein, Percutaneous Approach (ICD-10-PCS; 2018-06-12)
PROC: 30233N1 Transfusion of Nonautologous Red Blood Cells into Peripheral Vein, Percutaneous Approach (ICD-10-PCS; 2018-06-12)
DX: E11.621 Type 2 diabetes mellitus with foot ulcer (principal); E11.52 Type 2 diabetes mellitus with diabetic peripheral angiopathy with gangrene; I96 Gangrene, not elsewhere classified; E87.1 Hypo-osmolality and hyponatremia; Z68.43 Body mass index [BMI] 50.0-59.9, adult; L97.529 Non-pressure chronic ulcer of other part of left foot with unspecified severity; N18.4 Chronic kidney disease, stage 4 (severe); E11.65 Type 2 diabetes mellitus with hyperglycemia; E11.22 Type 2 diabetes mellitus with diabetic chronic kidney disease; I12.9 Hypertensive chronic kidney disease with stage 1 through stage 4 chronic kidney disease, or unspecified chronic kidney disease; E78.5 Hyperlipidemia, unspecified; E88.81 Metabolic syndrome and other insulin resistance; E66.01 Morbid (severe) obesity due to excess calories; N17.9 Acute kidney failure, unspecified; D50.9 Iron deficiency anemia, unspecified; B96.4 Proteus (mirabilis) (morganii) as the cause of diseases classified elsewhere; E11.40 Type 2 diabetes mellitus with diabetic neuropathy, unspecified; E11.21 Type 2 diabetes mellitus with diabetic nephropathy; E87.5 Hyperkalemia; Z79.82 Long term (current) use of aspirin; Z79.4 Long term (current) use of insulin; Z90.49 Acquired absence of other specified parts of digestive tract; Z83.3 Family history of diabetes mellitus
CPT/HCPCS: 36415; 36416; 36430; 71045; 80048; 80053; 82570; 82728; 83540; 83550; 83605; 84156; 84703; 85025; 85046; 86850; 86900; 86901; 86922; 87040; 87070; 87076; 87077; 87186; 87205; 88305; 93005; 93010; 93970; 94760; 96361; 96365; 96375; G0365; G8978-GP-CL; G8979-GP-CJ; J0131; J0670; J1650; J1815; J2001; J2270; J2405; J2543; J2704; J3010; J3370; J7050; P9016; S0028

== ENCOUNTER 2018-06-18 12:30 | Inpatient (IN) | payer SELFPAY ==
[2018-06-18 13:37] LABS: #Basophils 0.1 thou/uL (0.0-0.2); #Eosinphils 0.1 thou/uL (0.0-0.7); #Lymphocytes 1.5 thou/uL (1.20-3.40); #Monocytes 0.7 thou/uL (0.11-0.59); #Neutrophils 15.2 thou/uL (1.40-6.50); %Basophils 0.3 % (0.0-1.0); %Eosinophils 0.8 % (0.0-10.0); %Lymphocytes 8.7 % (21.0-51.0); %Monocytes 4.2 % (0.0-10.0); Hemoglobin 9.3 g/dL (12.0-16.0); Mean Corpuscular HGB CONC 31.1 g/dL (32.0-36.0); Mean Corpuscular Hemoglobin 28.6 pg (27.0-31.0); Mean Platelet Volume 7.3 fL (7.4-10.4); Platelet Count 479 thou/uL (130-400); Red Blood Cell (RBC) Count 3.25 mill/uL (4.20-5.40); White Blood Cell (WBC) Count 17.7 thou/uL (4.8-10.8)
[2018-06-18] MEDS ORDERED: Ondansetron PF 4 MG/2 ML Vial ONE ×2 (15:40→20:36)
[2018-06-18] MEDS ORDERED: cloNIDine 0.1 MG TAB ONE ×2 (15:57→18:00)
[2018-06-18 16:30] LABS: Bilirubin Negative (Negative); Blood, Urine Large (Negative); Clarity CLOUDY (Clear); Glucose, Urine (Dipstick) >=1000 mg/dL (Negative); Leukocyte Negative (Negative); Nitrite Negative (Negative); Protein, Urine (Dipstick) > or equal to 300 mg/dL (Neg-Trace); pH, Urine 5.5 (5.0-9.0)
[2018-06-18 16:31] LABS: Pregnancy Test - Urine (BHCG) Negative (Negative); Pregu Control Background? CLEAR/WHITE (CLR/WHITE); Pregu Control Bar Appear? YES (CONTROL BAR)
[2018-06-18 16:32] LABS: Bacteria/HPF None Seen HPF (None Seen); Pathc Cast-AUWi Flag 1.45 (0-2.49)
[2018-06-18 16:33] LABS: Troponin I Less than 0.010 ng/mL (< 0.028)
[2018-06-18 16:36] LABS: CKMB 11.7 ng/mL (0-6.6)
[2018-06-18 16:38] LABS: Hyaline Casts/LPF 0-3 HYALINE CAST LPF (0-3 Hyaline); Renal Epithelial None Seen HPF (0-3); Transitional Epithelial NONE SEEN HPF (0-3)
[2018-06-18 17:44] LABS: ALT (SGPT) 18 U/L (8-55); AST (SGOT) 26 U/L (5-34); Albumin 3.1 g/dL (3.5-5.0); Alkaline Phosphatase 258 U/L (40-150); Anion Gap 23 mmol/L (10-20); BUN (Urea Nitrogen) 27 mg/dL (7.0-18.7); Bilirubin, Total 0.3 mg/dL (0.2-1.2); Calc. Creatinine Clearance 0 mL/min (70-130); Calcium 10.2 mg/dL (7.8-10.44); Carbon Dioxide 11 mmol/L (22-29); Chloride 109 mmol/L (98-107); Estimated GFR-MDRD 41; Globulin 6.5 g/dL (2.4-3.5); Glucose 362 mg/dL (70-105); Potassium 5.3 mmol/L (3.5-5.1); Protein, Total 9.6 g/dL (6.0-8.3); Sodium 138 mmol/L (136-145)
[2018-06-18] MEDS ORDERED: Insulin Regular 300 UNITS/3 ML VIAL ONE (18:11)
[2018-06-18] MEDS ORDERED: Insulin Regular 100 units/100 ml in NS IVPB SCH (18:45)
[2018-06-18] MEDS ORDERED: Acetaminophen 325 MG TAB PO PRN (19:18)
[2018-06-18] MEDS ORDERED: CCU Electrolyte Replacement 1 EACH IVPB ONE (19:18)
[2018-06-18] MEDS ORDERED: Senokot S 8.6-50 MG TAB PO PRN (19:18)
[2018-06-18] MEDS ORDERED: Sodium Chloride 0.9% 1,000 ML IV PRN ×4 (19:18)
[2018-06-18] MEDS ORDERED: traMADol HCl 50 MG TAB PO PRN (19:18)
[2018-06-18] MEDS ORDERED: Guaifenesin DM 100-10/5 ML UDCUP PO PRN (19:18)
[2018-06-18] MEDS ORDERED: Dextrose 5 %-0.45 % NaCl 1,000 ML IV PRN (19:18)
[2018-06-18] MEDS ORDERED: Benzonatate 100 MG CAP PO PRN (19:18)
[2018-06-18] MEDS ORDERED: NS 0.9% w/ 20 MEQ KCL 1,000 ML IV PRN (19:18)
[2018-06-18] MEDS ORDERED: Potassium Phosphate 15 MMOL in Sodium Chloride 0.9% 250 ML 250 ML IV PRN (19:32)
[2018-06-18] MEDS ORDERED: Potassium Chloride 40 MEQ in Premix Bag 1 BAG IVPB PRN (19:32)
[2018-06-18] MEDS ORDERED: Potassium Chloride 40 MEQ in Sodium Chloride 0.9% 250 ML 250 ML IVPB PRN (19:32)
[2018-06-18] MEDS ORDERED: CCU ELECTROLYTE REPLACEMENT PROTOCOL FS PRN (19:32)
[2018-06-18] MEDS ORDERED: Potassium Phosphate 9 MMOL in Sodium Chloride 0.9% 100 ML IVPB PRN (19:32)
[2018-06-18] MEDS ORDERED: Magnesium 2 GM/NS 0.9% 100 ML 2 GM in Premix Bag 1 BAG IVPB PRN (19:32)
[2018-06-18] MEDS ORDERED: Potassium Phosphate 12 MMOL in Sodium Chloride 0.9% 250 ML 250 ML IV PRN (19:32)
[2018-06-18] MEDS ORDERED: Magnesium Oxide 400 MG TAB PO PRN ×2 (19:32)
[2018-06-18] MEDS ORDERED: Potassium Chloride 20 MEQ TAB PO PRN (19:32)
--- NOTE | 2018-06-18 19:47 | HP ---
REASON FOR ADMISSION: DKA, dehydration, intractable nausea, vomiting, history of gastroparesis. HISTORY OF PRESENT ILLNESS: Patient says her stomach started acting up from yesterday. She has been throwing up and having severe nausea and vomiting. She has not been able to keep anything down from yesterday evening. The patient felt very weak and was unable to get up from her bed. No cough or f ever. She was recently discharged on the after being hospitalized for left foot infection in wo und VAC. Patient has not picked up her antibiotic prescriptions so far from pharmacy. She states sh e was ambulating inside the house when she went home, but from this morning she has been very weak. Finally, patient made it to the emergency room here. PAST MEDICAL AND SURGICAL HISTORY: History of diabetic foot ulcer with recent ray amputation of four th and fifth toe on the left foot and wound being placed in wound VAC, history of gastroparesis, labi le diabetes, obesity, hypertension, dyslipidemia, peripheral neuropathy, history of cardiac ablation, cholecystectomy. PERSONAL HISTORY: Does not abuse alcohol or drugs. No history of smoking. FAMILY HISTORY: Mother at the age of 48 years. She has had history of diabetes and in fact d of complications from the same. Father of cirrhosis at the age of 46 years. CURRENT MEDICATIONS: Patient was discharged on aspirin 81 mg p.o. daily, atorvastatin 40 mg p.o. at bedtime, clonidine 0.2 mg p.o. twice daily, Lasix 20 mg daily, gabapentin 600 mg twice daily, NPH 30 units subcu twice daily, amitriptyline 25 mg twice daily, metformin 500 mg twice daily, losartan 100 mg daily, metoclopramide 10 mg p.o. a.c. and at bedtime, Norvasc 10 mg p.o. daily, Augmentin 875 mg p .o. twice daily, Coreg 25 mg twice daily, ciprofloxacin 500 mg p.o. twice daily, ferrous sulfate 325 mg p.o. twice daily, Flagyl 500 mg 3 times daily, Florastor 250 mg daily and Ultram p.r.n. for pain. ALLERGIES: LISINOPRIL. CODE STATUS: FULL. Power of criminal attorney is her daughter, Ms. Derrick Newton. REVIEW OF SYSTEMS: The following complete review of systems was negative, unless otherwise mentioned in the HPI or below: Constitutional: Weight loss or gain, ability to conduct usual activities. Skin: Rash, itching. Eyes: Double vision, pain. ENT/Mouth: Nose bleeding, neck stiffness, pain, tenderness. Cardiovascular: Palpitations, dyspnea on exertion, orthopnea. Respiratory: Shortness of breath, wheezing, cough, hemoptysis, fever or night sweats. Gastrointestinal: Poor appetite, abdominal pain, heartburn, nausea, vomiting, constipation, or diarr hea. Genitourinary: Urgency, frequency, dysuria, nocturia. Musculoskeletal: Pain, swelling. Neurologic/Psychiatric: Anxiety, depression. Allergy/Immunologic: Skin rash, bleeding tendency. PHYSICAL EXAMINATION: GENERAL: Patient is a 43-year-old female who is currently not in any acute distress. VITAL SIGNS: Blood pressure 156/90, pulse 116 per minute, respiratory rate 16 per minute, temperatur e 97.7 degrees Fahrenheit, saturating 99% on room air. NECK: Supple, no elevated JVD. EYES: Extraocular muscles intact. Pupils reacting to light. ORAL CAVITY: Mucous membranes are dry. No exudates or congestion. CARDIOVASCULAR SYSTEM: S1, S2 heard. Regular rhythm. RESPIRATORY SYSTEM: Air entry 1+ bilateral. Scattered rhonchi plus no rales or wheezes. ABDOMEN: Soft, bowel sounds heard. No tenderness, rigidity or guarding. EXTREMITIES: Left foot is in the wound VAC. No calf tenderness. VASCULAR SYSTEM: Peripheral pulses 1+ bilateral, no ischemic ulcerations or gangrene. CENTRAL NERVOUS SYSTEM: No gross focal deficits noted. Patient is alert, awake, and oriented well. PSYCHIATRIC SYSTEM: The patient's mood is euthymic. No hallucinations or delusions. LABORATORY DATA AND IMAGING DATA: White count of 17, hemoglobin and hematocrit 9 and 29, platelet co unt 479, MCV is 92 with 86% neutrophils. Potassium 5.3, serum bicarbonate 11, BUN 27, creatinine 1.6 , serum glucose 362 and alkaline phosphatase 258. AST, ALT within normal limits, total bilirubin 0.3 . CK-MB is 11.7, albumin is 3.1, one set of cardiac enzymes are negative. Lipase is 8. UA shows gr eater than 1000 mg per deciliter of glucose, 15 mg per deciliter of ketones. Urine test is negative. Beta hydroxybutyrate levels are 2.83. CLINICAL IMPRESSION AND PLAN: The patient will be admitted to [facility] for DKA due to intractable nausea , vomiting, likely her gastroparesis is acting up. The patient blames it on some new medications morena t were started during her recent hospitalization. The patient was placed on Augmentin and ciprofloxa jacquelin based on cultures by Dr. Schofield to cover Proteus and Prevotella plus group B strep growing from he r wound in the left foot. We will continue the same as of now. She is currently on 4 units of regul ar insulin IV and likely her gap should close pretty quickly. We will restart her back on her NPH in sulin 30 units twice daily once the gap closes. Wound Care will be consulted for the left foot wound . We will continue her aspirin, atorvastatin, Reglan, Norvasc, Coreg, gabapentin, losartan, and Dulce Maria astor as before. Tramadol for pain. The patient needs to ambulate and we will obtain PT/OT evaluati ons as well.
[2018-06-18 20:00] LABS: BHCG - Serum Negative (NEGATIVE); Pregs Control Background? CLEAR/WHITE (CLR/WHITE); Pregs Control Bar Appear? YES (CONTROL BAR)
[2018-06-18] MEDS ORDERED: Nitroglycerin 2% Ointment 1 INCH/1 GM Packet ONE (20:36)
[2018-06-18] MEDS ORDERED: Nitroglycerin 0.4 MG TAB (25 Tab Bottle) ONE (20:36)
[2018-06-18 21:31] LABS: Anion Gap 22 mmol/L (10-20); BUN (Urea Nitrogen) 27 mg/dL (7.0-18.7); Calc. Creatinine Clearance 0 mL/min (70-130); Calcium 9.5 mg/dL (7.8-10.44); Carbon Dioxide 10 mmol/L (22-29); Chloride 111 mmol/L (98-107); Estimated GFR-MDRD 45; Glucose 313 mg/dL (70-105); Potassium 4.7 mmol/L (3.5-5.1); Sodium 138 mmol/L (136-145)
[2018-06-18] MEDS ORDERED: Fentanyl 100 MCG/2 ML VIAL ONE (22:52)
[2018-06-18] MEDS ORDERED: Nitroglycerin 50 MG/250 ML BOT 250 ML ONE (22:52)
[2018-06-19 01:08] LABS: Anion Gap 18 mmol/L (10-20); BUN (Urea Nitrogen) 29 mg/dL (7.0-18.7); Calc. Creatinine Clearance 0 mL/min (70-130); Calcium 9.5 mg/dL (7.8-10.44); Carbon Dioxide 15 mmol/L (22-29); Chloride 112 mmol/L (98-107); Estimated GFR-MDRD 40; Glucose 308 mg/dL (70-105); Potassium 4.5 mmol/L (3.5-5.1); Sodium 140 mmol/L (136-145)
[2018-06-19] MEDS ORDERED: Ondansetron PF 4 MG/2 ML Vial IVP PRN (01:42)
[2018-06-19] MEDS ORDERED: Ondansetron ODT 4 MG TAB SL PRN (01:42)
[2018-06-19] MEDS: NS 0.9% w/ 20 MEQ KCL 1,000 ML IV PRN ×2 (02:14→04:21)
[2018-06-19 02:19] VITALS: BMI 58.1
[2018-06-19] MEDS ORDERED: Nitroglycerin 50 MG/250 ML BOT 250 ML IVPB SCH (03:00)
[2018-06-19] MEDS: Amitriptyline HCl 25 MG TAB PO SCH ×3 (04:13→20:43)
[2018-06-19] MEDS: Amoxicillin/Potassium Clav 875 MG TAB PO SCH ×3 (04:14→20:41)
[2018-06-19] MEDS: Ciprofloxacin 500 MG TAB PO SCH ×3 (04:14→20:42)
[2018-06-19] MEDS: Atorvastatin Calcium 40 MG TAB PO SCH ×2 (04:14→20:42)
[2018-06-19] MEDS: Famotidine 20 MG TAB PO SCH ×2 (04:15→09:45)
[2018-06-19] MEDS: Gabapentin 300 MG CAP PO SCH ×3 (04:15→20:41)
[2018-06-19] MEDS: cloNIDine 0.2 MG TAB PO SCH ×4 (04:15→20:42)
[2018-06-19] MEDS: Metoclopramide HCl 10 MG TAB PO SCH ×5 (04:16→20:43)
[2018-06-19] MEDS: Saccharomyces boulardii 250 MG CAP PO SCH ×3 (04:16→20:41)
[2018-06-19 05:26] LABS: Anion Gap 14 mmol/L (10-20); BUN (Urea Nitrogen) 29 mg/dL (7.0-18.7); Calc. Creatinine Clearance 98 mL/min (70-130); Calcium 8.8 mg/dL (7.8-10.44); Carbon Dioxide 16 mmol/L (22-29); Chloride 115 mmol/L (98-107); Estimated GFR-MDRD 37; Glucose 207 mg/dL (70-105); Sodium 141 mmol/L (136-145)
[2018-06-19 05:40] LABS: #Eosinphils 0.1 thou/uL (0.0-0.7); #Lymphocytes 2.1 thou/uL (1.20-3.40); #Monocytes 1.5 thou/uL (0.11-0.59); #Neutrophils 14.9 thou/uL (1.40-6.50); %Basophils 0.1 % (0.0-1.0); %Eosinophils 0.5 % (0.0-10.0); %Lymphocytes 11.4 % (21.0-51.0); %Monocytes 8.1 % (0.0-10.0); %Neutrophils 79.9 % (42.0-75.0); Hemoglobin 7.9 g/dL (12.0-16.0); Mean Corpuscular Hemoglobin 27.4 pg (27.0-31.0); Mean Corpuscular Volume 91.5 fL (78.0-98.0); Mean Platelet Volume 7.9 fL (7.4-10.4); PLT Morphology Comment Appears Adequate; Platelet Count 379 thou/uL (130-400); RBC Distribution Width 12.1 % (11.5-14.5); RBC Morphology Normal; Red Blood Cell (RBC) Count 2.88 mill/uL (4.20-5.40); White Blood Cell (WBC) Count 18.6 thou/uL (4.8-10.8)
[2018-06-19] MEDS: D5 1/2 NS w/20 mEq KCL 1,000 ML IV PRN ×4 (06:45→20:40)
--- NOTE | 2018-06-19 08:16 | RAD ---
CHEST ONE VIEW: History: Emergency exam. Shortness of breath. Comparison: 06-12-18 FINDINGS: Central venous catheter with the tip in the mid to lower SVC, in good position. Lungs without conflue nt airspace consolidation, pneumothorax or effusion. IMPRESSION: No acute intrathoracic abnormality. POS: [facility]
[2018-06-19] MEDS: Carvedilol 25 MG TAB PO SCH ×2 (08:39→17:17)
[2018-06-19] MEDS: Ferrous Sulfate 325 MG TAB PO SCH ×2 (08:39→17:18)
[2018-06-19] MEDS ORDERED: Morphine 4 MG/ML VIAL SLOW IVP PRN (09:33)
[2018-06-19] MEDS ORDERED: Morphine 4 MG/ML VIAL ONE (09:33)
[2018-06-19] MEDS ORDERED: Acetaminophen 1,000 MG in Premix Bag 1 BAG IVPB PRN (09:34)
[2018-06-19] MEDS ORDERED: Dextrose 5% in Water 1,000 ML IV PRN (09:38)
[2018-06-19] MEDS ORDERED: Dextrose 50% Abboject 50 ML SYRINGE SLOW IVP PRN (09:38)
[2018-06-19] MEDS ORDERED: HumaLOG 300 UNITS/3 ML VIAL SC PRN (09:38)
[2018-06-19] MEDS: Aspirin 81 mg Enteric Coated Tablet PO SCH (09:45)
[2018-06-19] MEDS: Amlodipine 10 MG TAB PO SCH (09:45)
[2018-06-19] MEDS: Losartan 25 MG TAB PO SCH (09:46)
--- NOTE | 2018-06-19 09:49 | PRG ---
DATE OF SERVICE: 06/19/2018 Ms. Newton is a patient of Dr. Jung, who is readmitted for gastroparesis, nausea, and vomiting. e is due for dressing change this morning. The patient was seen and examined with wound care. I the n wrote for 4 mg of IV morphine for dressing changes. I also wrote for IV Tylenol for pain in bete n. We will follow on an as needed basis.
[2018-06-19] MEDS: Enoxaparin Sodium 40 MG/0.4 ML SYRINGE SC SCH (10:23)
[2018-06-19] MEDS: Labetalol HCl 100 MG/20 ML VIAL SLOW IVP PRN ×2 (10:25→14:20)
[2018-06-19] MEDS: Metoclopramide HCl 10 MG/2 ML VIAL IVP SCH ×3 (10:25→20:43)
[2018-06-19] MEDS ORDERED: NPH, Human Insulin Isophane 300 UNIT/3 ML VIAL SC SCH ×2 (10:30→21:00)
[2018-06-19] MEDS ORDERED: Pantoprazole 40 MG VIAL IVP SCH (11:45)
--- NOTE | 2018-06-19 11:46 | CON ---
DATE OF CONSULTATION: 06/19/2018 HISTORY OF PRESENT ILLNESS: This is a morbidly obese 43-year-old female who has seen Dr. Cedillo in the office before she presented with nausea, vomiting, uncontrolled diabetes. She is now in the ICU for reason for consultation. She had a recent surgery done on the left foot amputation. She denies any chest pain, shortness of breath, coughing or wheezing. She does not smoke, does not d rink. Extensive history outlined. PAST MEDICAL HISTORY: Pertinent for apparently cardiac arrhythmias, diabetes, uncontrolled type 2, h ypertension, morbid obesity. PAST SURGICAL HISTORY: Cholecystectomy, , , uterine ablation, cardiac ablation. Recen t leg surgery done by Dr. Jung. MEDICATIONS: From home includes tramadol, Flagyl 500 3 times a day, Glucophage 500 twice a day, Emma pres 0.2 twice a day, Reglan 10 a.c. and at bedtime, Cozaar 100, Levaquin, gabapentin 600 twice a day , Lasix 20 once a day, several different antibiotics for recent surgery and Coreg 25 twice a day, Cip ro 500 twice a day. REVIEW OF SYSTEMS: Otherwise, 10-point negative. PHYSICAL EXAMINATION: GENERAL: She is awake, alert, and responsive. She states she is still nauseated. VITAL SIGNS: Blood pressure 149/100, pulse 80, respiration is 18. She is afebrile. CHEST: No wheezing or crackles. CARDIAC: Normal S1, S2, no gallops. ABDOMEN: Soft. No masses. LABORATORY: White count 18,000, H&H is 7 and 26, platelet count is normal. Creatinine is 1.8, BUN i s 29. Glucose is 163. She is on an insulin drip. IMPRESSION: 1. Persistent nausea and vomiting. 2. Uncontrolled diabetes. 3. Recent amputation of multiple toes. PLAN: She needs antinausea medication after which we can reschedule her Reglan by mouth. Otherwise, supportive care and PT. When she is off the insulin, she can be transferred out of the U. Pulmonary will follow. This is a 70 minute consultation note in which 50% spent in direct patient care.
[2018-06-19] MEDS: HumaLOG 300 UNITS/3 ML VIAL SC PRN ×2 (11:53→16:24)
--- NOTE | 2018-06-19 14:32 | PDOC.PN ---
- Subjective Encounter Start Date: 06/19/18 Encounter Start Time: 14:30 Subjective: c/o nausea and dry heaves.no significant Abd pain/diarrhea -: c/o spasmodic chest pain/epigastric pain - Objective Resuscitation Status: Resuscitation Status FULL:Full Resuscitation MAR Reviewed: Yes Vital Signs & Weight: Vital Signs (12 hours) Temp Pulse BP Pulse Ox 06/19/18 14:20 103 H 176/116 H 06/19/18 13:52 145/100 H 06/19/18 11:00 98.3 F 06/19/18 10:25 131 H 141/104 H 06/19/18 08:00 100 06/19/18 07:37 100 06/19/18 07:00 98.3 F 06/19/18 04:00 98.5 F Weight Weight 338 lb 6.553 oz Most Recent Monitor Data Heart Rate from ECG 101 NIBP 165/112 NIBP BP-Mean 129 Respiration from ECG 14 SpO2 100 I&O: 06/18/18 06/19/18 06/20/18 06:59 06:59 06:59 Intake Total 2527 420 Output Total 255 180 Balance 2272 240 Result Diagrams: 06/19/18 04:18 06/19/18 04:18 Additional Labs: Accuchecks 06/19/18 06/19/18 06/19/18 11:42 07:57 06:41 POC Glucose 166 H 163 H 152 H 06/19/18 06/19/18 06/19/18 05:41 04:38 03:48 POC Glucose 193 H 215 H 234 H 06/19/18 06/19/18 06/19/18 02:32 01:46 00:20 POC Glucose 278 H 321 H 309 H 06/18/18 06/18/18 06/18/18 22:15 20:19 19:19 POC Glucose 275 H 304 H 328 H 06/18/18 06/18/18 17:56 15:29 POC Glucose 356 H 361 H Laboratory Tests 06/16/18 06/18/18 06/18/18 04:55 00:35 15:57 Anion Gap 18 Creatinine 2.25 H POC Glucose Urine Test B-Hydroxybutyrate 2.83 H 06/18/18 06/18/18 06/18/18 15:57 16:16 21:02 Anion Gap 23 H 22 H Creatinine 1.54 H POC Glucose Urine Test Negative B-Hydroxybutyrate 06/19/18 06/19/18 06/19/18 03:48 04:18 04:38 Anion Gap 14 Creatinine 1.81 H POC Glucose 234 H 215 H Urine Test B-Hydroxybutyrate 06/19/18 06/19/18 06/19/18 05:41 06:41 07:57 Anion Gap Creatinine POC Glucose 193 H 152 H 163 H Urine Test B-Hydroxybutyrate Phys Exam - Physical Examination Constitutional: NAD HEENT: PERRLA, moist MMs, sclera anicteric, oral pharynx no lesions Neck: no nodes, no JVD, supple, full ROM Respiratory: no wheezing, no rales, no rhonchi, wheezing present, clear to auscultation bilateral Cardiovascular: RRR, no significant murmur Gastrointestinal: soft, non-tender, no distention, positive bowel sounds Musculoskeletal: no edema, pulses present Neurological: non-focal, normal sensation, moves all 4 limbs Psychiatric: normal affect, A&O x 3 Skin: no rash Dx/Plan (1) DKA (diabetic ketoacidoses) Code(s): E13.10 - OTH DIABETES MELLITUS WITH KETOACIDOSIS WITHOUT COMA Status : Acute Qualifiers: Diabetes mellitus type: type 1 Comment: Resolved .AG closed (2) Uncontrolled hypertension Code(s): I10 - ESSENTIAL (PRIMARY) HYPERTENSION Status: Acute (3) Diabetes mellitus with foot ulcer and gangrene Code(s): E11.621 - TYPE 2 DIABETES MELLITUS WITH FOOT ULCER; E11.52 - TYPE 2 DIABETES W DIABETIC PERIPHERAL ANGIOPATHY W GANGRENE; L97.509 - NON-PRESSURE CHRONIC ULCER OTH PRT UNSP FOOT W UNSP SEVERITY Status: Acute Comment: Debridement/amputation of left 4th, 5th toes on 06/12/18. Wound vac. +Proteus. Pt did not take Prescribed PO ABx after discharge on 06/16/18.. Restarted (4) Anemia, normocytic normochromic Code(s): D64.9 - ANEMIA, UNSPECIFIED Status: Chronic Comment: CKD with anemia. Transfusion today. Tachycardic, getting surg. (5) CKD (chronic kidney disease) stage 3, GFR 30-59 ml/min Code(s): N18.3 - CHRONIC KIDNEY DISEASE, STAGE 3 (MODERATE) Status: Chronic (6) Dyslipidemia Code(s): E78.5 - HYPERLIPIDEMIA, UNSPECIFIED Status: Chronic Comment: Atorvastin. 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 Coreg, amlodipine, Losartan. 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 -: monitor renal FX. PRN anti emetics.short course of PRN reglan * . Review of Systems - Review of Systems Constitutional: weakness, malaise ENT: negative: Ear Pain, Ear Discharge, Nose Pain, Nose Discharge, Nose Congestion, Mouth Pain, Mouth Swelling, Throat Pain, Throat Swelling, Other Respiratory: negative: Cough, Dry, Shortness of Breath, Hemoptysis, SOB with Excertion, Pleuritic Pain, Sputum, Wheezing Cardiovascular: negative: chest pain, palpitations, orthopnea, paroxysmal nocturnal dyspnea, edema, light headedness, other Gastrointestinal: Nausea, Vomiting. negative: Abdominal Pain, Diarrhea, Constipation, Melena, Hematochezia, Other Genitourinary: negative: Dysuria, Frequency, Incontinence, Hematuria, Retention , Other Musculoskeletal: negative: Neck Pain, Shoulder Pain, Arm Pain, Back Pain, Hand Pain, Leg Pain, Foot Pain, Other Skin: negative: Rash, Lesions, Papi, Bruising, Other Neurological: negative: Weakness, Numbness, Incoordination, Change in Speech, Confusion, Seizures, Other - Medications/Allergies Allergies/Adverse Reactions: Allergies Allergy/AdvReac Type Severity Reaction Status Date / Time lisinopril Allergy Severe Anaphylaxis Verified 06/19/18 07:33 Medications: Current Medications Acetaminophen (Tylenol) 650 mg PO Q4H PRN PRN Reason: Headache/Fever/Mild Pain (1-3) Amitriptyline HCl (Elavil) 25 mg PO BID [facility] Last Admin: 06/19/18 09:45 Dose: Not Given Amlodipine Besylate (Norvasc) 10 mg PO DAILY [facility] Last Admin: 06/19/18 09:45 Dose: Not Given Amoxicillin/Clavulanate Potassium (Augmentin) 875 mg PO Q12HR [facility] Last Admin: 06/19/18 09:45 Dose: Not Given Aspirin (Ecotrin) 81 mg PO DAILY [facility] Last Admin: 06/19/18 09:45 Dose: Not Given Atorvastatin Calcium (Lipitor) 40 mg PO HS [facility] Last Admin: 06/19/18 04:14 Dose: Not Given Benzonatate (Tessalon) 100 mg PO TID PRN PRN Reason: Cough Carvedilol (Coreg) 25 mg PO BID[facility] Last Admin: 06/19/18 08:39 Dose: Not Given Ciprofloxacin (Cipro) 500 mg PO BID [facility] Last Admin: 06/19/18 09:45 Dose: Not Given Clonidine (Catapres) 0.2 mg PO BID [facility] Last Admin: 06/19/18 13:52 Dose: 0.2 mg Dextrose/Water (Dextrose 50%) 25 gm SLOW IVP PRN PRN PRN Reason: Hypoglycemia Enoxaparin Sodium (Lovenox) 40 mg SC 0900 [facility] Last Admin: 06/19/18 10:23 Dose: 40 mg Ferrous Sulfate (Feosol) 325 mg PO BID-[facility] Last Admin: 06/19/18 08:39 Dose: Not Given Gabapentin (Neurontin) 600 mg PO BID [facility] Last Admin: 06/19/18 10:17 Dose: Not Given Glucagon (Glucagon) 1 mg IM PRN PRN PRN Reason: Hypoglycemia Guaifenesin/Dextromethorphan (Robitussin Dm) 15 ml PO Q4H PRN PRN Reason: Cough Dextrose/Sodium Chloride (D5 1/2 Ns) 1,000 mls @ 250 mls/hr IV .Q4H PRN; Protocol PRN Reason: Step 4 of DKA Protocol Potassium Chloride/Dextrose/Sod Cl (D5 1/2 Ns W/20 Meq Kcl) 1,000 mls @ 250 mls /hr IV .Q4H PRN; Protocol PRN Reason: Step 4 of DKA Protocol Last Admin: 06/19/18 14:28 Dose: 1,000 mls Insulin Human Regular 100 (units/ Sodium Chloride) 101 mls @ 0 mls/hr IVPB INF [facility]; Protocol Last Admin: 06/19/18 08:17 Dose: 101 mls Sodium Chloride (Normal Saline 0.9%) 1,000 mls @ 500 mls/hr IV .Q2H PRN; Protocol PRN Reason: Step 1 of DKA Protocol Sodium Chloride (Normal Saline 0.9%) 1,000 mls @ 1,000 mls/hr IV .Q1H PRN; Protocol PRN Reason: Step 1 of DKA Protocol Sodium Chloride (Normal Saline 0.9%) 1,000 mls @ 250 mls/hr IV .Q4H PRN; Protocol PRN Reason: SEE STEP 3 OF DKA PROTOCOL Sodium Chloride (Normal Saline 0.9%) 1,000 mls @ 500 mls/hr IV .Q2H PRN; Protocol PRN Reason: Step 2 of DKA Protocol Potassium Chloride/Sodium Chloride (Ns 0.9% W/ 20 Meq Kcl) 1,000 mls @ 500 mls/ hr IV .Q2H PRN; Protocol PRN Reason: Step 2 of DKA Protocol Last Admin: 06/19/18 04:21 Dose: 1,000 mls Potassium Chloride/Sodium Chloride (Ns 0.9% W/ 20 Meq Kcl) 1,000 mls @ 250 mls/ hr IV .Q4H PRN; Protocol PRN Reason: SEE STEP 3 OF DKA PROTOCOL Potassium Chloride 40 meq/ (Sodium Chloride) 270 mls @ 135 mls/hr IVPB ASDIR PRN PRN Reason: FOR SERUM K+ 2.5 - 3.5 Potassium Chloride 40 meq/ (Device) 100 mls @ 50 mls/hr IVPB ASDIR PRN PRN Reason: FOR SERUM K+ 2.5 - 3.5 Magnesium Sulfate 1 gm/ Sodium (Chloride) 102 mls @ 102 mls/hr IV PRN PRN PRN Reason: MAG LEVEL 1.4 - 2.0 Magnesium Sulfate 2 gm/ Device 100 mls @ 100 mls/hr IVPB ASDIR PRN PRN Reason: MAGNESIUM < 1.4 Potassium Phosphate 9 mmol/ (Sodium Chloride) 103 mls @ 25.75 mls/hr IVPB ASDIR PRN PRN Reason: Phosphate 1.0-1.8 Potassium Phosphate 12 mmol/ (Sodium Chloride) 254 mls @ 63.5 mls/hr IV ASDIR PRN PRN Reason: Serum phosphate 0.5-0.9 Potassium Phosphate 15 mmol/ (Sodium Chloride) 255 mls @ 63.75 mls/hr IV ASDIR PRN PRN Reason: Serum Phos < 0.5 Nitroglycerin/Dextrose (Nitroglycerin 50 Mg/250 Ml Bot) 250 mls @ 0 mls/hr IVPB INF [facility]; Protocol Last Admin: 06/19/18 08:17 Dose: 250 mls Acetaminophen 1,000 mg/ Device 100 mls @ 400 mls/hr IVPB Q6H PRN PRN Reason: Fever/Mild Pain Stop: 06/20/18 09:35 Last Admin: 06/19/18 10:25 Dose: 100 mls Dextrose/Water (D5w) 1,000 mls @ 0 mls/hr IV .Q0M PRN PRN Reason: Hypoglycemia Insulin Glargine 5 units/ (Miscellaneous Medication) 0.05 mls @ 0 mls/hr SC [facility] Insulin Human Lispro (Humalog) 0 units SC .MODERATE SLIDING SC PRN PRN Reason: Moderate Correctional Scale Last Admin: 06/19/18 11:53 Dose: 2 unit Insulin Human Lispro (Humalog) 0 units SC .BEDTIME SLIDING SC PRN PRN Reason: Bedtime Correctional Scale Insulin Human NPH (Humulin N) 15 unit SC BID [facility] Labetalol HCl (Normodyne) 20 mg SLOW IVP Q4H PRN PRN Reason: Blood Pressure Last Admin: 06/19/18 14:20 Dose: 20 mg Losartan Potassium (Cozaar) 100 mg PO DAILY [facility] Last Admin: 06/19/18 09:46 Dose: Not Given Magnesium Oxide (Magnesium Oxide) 400 mg PO BIDPRN PRN PRN Reason: FOR SERUM MAG 1.4 - 2.0 Magnesium Oxide (Magnesium Oxide) 800 mg PO PRN PRN PRN Reason: FOR SERUM MAG < 1.4 Metoclopramide HCl (Reglan) 10 mg PO ACHS [facility] Last Admin: 06/19/18 14:11 Dose: Not Given Metoclopramide HCl (Reglan) 10 mg IVP Q8HR [facility] Last Admin: 06/19/18 13:50 Dose: 10 mg Miscellaneous Medication (Phos-Nak) 1 pkt PO TIDPRN PRN PRN Reason: FOR PHOS LEVEL 1.0 - 1.8 Miscellaneous Medication (Phos-Nak) 2 pkt PO TIDPRN PRN PRN Reason: FOR PHOS LEVEL 0.5 - 1.0 Morphine Sulfate (Morphine) 4 mg SLOW IVP Q4H PRN PRN Reason: pain with dressing changes Ccu Electrolyte (Replacement Protocol) 0 each FS PRN PRN PRN Reason: FOR ELECTROLYTE REPLACEMENT Pantoprazole Sodium (Protonix) 40 mg IVP DAILY [facility] Potassium Chloride (K-Dur) 40 meq PO ASDIR PRN PRN Reason: FOR SERUM K+ 2.5 - 3.5 Potassium Chloride (Klor-Con) 40 meq PER TUBE ASDIR PRN PRN Reason: FOR SERUM K+ 2.5-3.5 Saccharomyces Boulardii (Florastor) 250 mg PO BID [facility] Last Admin: 06/19/18 09:46 Dose: Not Given Senna/Docusate Sodium (Senokot S) 2 tab PO BID PRN PRN Reason: Constipation Tramadol HCl (Ultram) 100 mg PO Q6H PRN PRN Reason: Mild Pain (1-3) 2ND LINE
[2018-06-19] MEDS ORDERED: Insulin Glargine 5 UNITS in Pre-Filled Syringe 1 EACH SC SCH (21:00)
[2018-06-20] MEDS: D5 1/2 NS w/20 mEq KCL 1,000 ML IV PRN (00:57)
[2018-06-20 04:57] LABS: Anion Gap 16 mmol/L (10-20); BUN (Urea Nitrogen) 31 mg/dL (7.0-18.7); Calc. Creatinine Clearance 75 mL/min (70-130); Calcium 7.9 mg/dL (7.8-10.44); Carbon Dioxide 10 mmol/L (22-29); Chloride 116 mmol/L (98-107); Estimated GFR-MDRD 27; Glucose 355 mg/dL (70-105); Potassium 5.8 mmol/L (3.5-5.1); Sodium 136 mmol/L (136-145)
[2018-06-20] MEDS: HumaLOG 300 UNITS/3 ML VIAL SC PRN (05:53)
[2018-06-20] MEDS: Metoclopramide HCl 10 MG/2 ML VIAL IVP SCH ×3 (05:55→22:04)
[2018-06-20] MEDS: Saccharomyces boulardii 250 MG CAP PO SCH ×2 (08:51→20:16)
[2018-06-20] MEDS: Metoclopramide HCl 10 MG TAB PO SCH ×4 (08:51→20:16)
[2018-06-20] MEDS: Carvedilol 25 MG TAB PO SCH ×2 (08:51→18:22)
[2018-06-20] MEDS: Amitriptyline HCl 25 MG TAB PO SCH ×2 (08:51→20:16)
[2018-06-20] MEDS: Ciprofloxacin 500 MG TAB PO SCH ×2 (08:52→20:16)
[2018-06-20] MEDS: Pantoprazole 40 MG VIAL IVP SCH (08:52)
[2018-06-20] MEDS: Aspirin 81 mg Enteric Coated Tablet PO SCH (08:52)
[2018-06-20] MEDS: Amoxicillin/Potassium Clav 875 MG TAB PO SCH ×2 (08:52→20:16)
[2018-06-20] MEDS: Gabapentin 300 MG CAP PO SCH ×2 (08:52→20:16)
[2018-06-20] MEDS: cloNIDine 0.2 MG TAB PO SCH ×2 (08:52→20:16)
[2018-06-20] MEDS: Amlodipine 10 MG TAB PO SCH (08:52)
[2018-06-20] MEDS: Ferrous Sulfate 325 MG TAB PO SCH ×2 (08:52→18:22)
[2018-06-20] MEDS: HumaLOG 300 UNITS/3 ML VIAL SC SCH ×3 (08:53→18:24)
[2018-06-20] MEDS: Enoxaparin Sodium 40 MG/0.4 ML SYRINGE SC SCH (08:53)
[2018-06-20] MEDS: Losartan 25 MG TAB PO SCH (08:54)
[2018-06-20] MEDS ORDERED: Insulin Glargine 5 UNITS in Pre-Filled Syringe 1 EACH SC SCH (09:00)
[2018-06-20] MEDS ORDERED: Mag-Al 1200 mg/1200 mg/30 ML UDCUP PO PRN (10:07)
[2018-06-20] MEDS ORDERED: Sodium Chloride 0.9% 1,000 ML IV SCH (10:15)
[2018-06-20] MEDS ORDERED: Calcium Gluconate 4.6 MEQ in Sodium Chloride 0.9% 100 ML IVPB ONE (10:20)
[2018-06-20] MEDS ORDERED: hydrALAZINE 20 MG/ML VIAL SLOW IVP PRN (10:24)
[2018-06-20] MEDS: Sodium Bicarbonate 150 MEQ in D5 1/4 NS 1,000 ML IV SCH ×2 (11:08→20:15)
--- NOTE | 2018-06-20 11:26 | PDOC.PN ---
- Subjective Encounter Start Date: 06/20/18 Encounter Start Time: 11:24 Subjective: continues to c/o pain substernally w difficulty swolling on and off -: weak and tired. no SOB -: no more nausea/vomiting - Objective Resuscitation Status: Resuscitation Status FULL:Full Resuscitation MAR Reviewed: Yes Vital Signs & Weight: Vital Signs (12 hours) Temp Pulse Resp BP BP Pulse Ox 06/20/18 08:52 171/98 H 06/20/18 07:26 97.8 F 106 H 18 172/88 H 100 06/20/18 03:24 98.2 F 104 H 20 136/84 98 06/19/18 23:37 98.0 F 97 20 138/104 H 98 Weight Weight 338 lb 6.553 oz Most Recent Monitor Data Heart Rate from ECG 100 NIBP 146/92 NIBP BP-Mean 110 Respiration from ECG 16 SpO2 100 I&O: 06/19/18 06/20/18 06/21/18 06:59 06:59 06:59 Intake Total 2527 2713 2052 Output Total 255 320 325 Balance 2272 2393 1727 Result Diagrams: 06/19/18 04:18 06/20/18 04:25 Additional Labs: Accuchecks 06/20/18 06/20/18 06/19/18 07:58 05:25 20:45 POC Glucose 287 H 363 H 325 H 06/19/18 06/19/18 16:18 11:42 POC Glucose 285 H 166 H Microbiology 06/12/18 12:47 Toe - Left Bacterial Culture - Final 06/12/18 12:47 Toe - Left Anaerobic Culture - Final Proteus mirabilis Streptococcus agalactiae Gp. B Prevotella loescheii Prevotella buccalis 06/10/18 18:21 Venous blood - Left Hand Blood Culture - Final NO GROWTH IN 5 DAYS 06/10/18 17:46 Venous blood - Right Hand Blood Culture - Final NO GROWTH IN 5 DAYS 06/18/18 16:16 Urine stanford catheter Urine Culture - Preliminary NO GROWTH AT 24 HOURS Phys Exam - Physical Examination Constitutional: NAD tired looking ,but AAAX3 HEENT: PERRLA, moist MMs, sclera anicteric, oral pharynx no lesions Neck: no nodes, no JVD, supple, full ROM Respiratory: no wheezing, no rales, no rhonchi, clear to auscultation bilateral Cardiovascular: no significant murmur tachycardia,regular Gastrointestinal: soft, non-tender, no distention, positive bowel sounds Musculoskeletal: no edema, pulses present Neurological: non-focal, normal sensation, moves all 4 limbs Psychiatric: normal affect, A&O x 3 Skin: no rash Dx/Plan (1) Chest pain Code(s): R07.9 - CHEST PAIN, UNSPECIFIED Status: Acute (2) Acute on chronic kidney failure Code(s): N17.9 - ACUTE KIDNEY FAILURE, UNSPECIFIED; N18.9 - CHRONIC KIDNEY DISEASE, UNSPECIFIED Status: Acute Comment: Getting a little worse daily. D/ W Nephrology. Stopping the Zosyn a potential source of worsening renal function. Continue to monitor. (3) Hyperkalemia Code(s): E87.5 - HYPERKALEMIA Status: Acute (4) Metabolic acidosis Code(s): E87.2 - ACIDOSIS Status: Acute (5) Uncontrolled hypertension Code(s): I10 - ESSENTIAL (PRIMARY) HYPERTENSION Status: Acute (6) DKA (diabetic ketoacidoses) Code(s): E13.10 - OTH DIABETES MELLITUS WITH KETOACIDOSIS WITHOUT COMA Status : Acute Qualifiers: Diabetes mellitus type: type 1 Comment: Resolved .AG closed (7) Diabetes mellitus with foot ulcer and gangrene Code(s): E11.621 - TYPE 2 DIABETES MELLITUS WITH FOOT ULCER; E11.52 - TYPE 2 DIABETES W DIABETIC PERIPHERAL ANGIOPATHY W GANGRENE; L97.509 - NON-PRESSURE CHRONIC ULCER OTH PRT UNSP FOOT W UNSP SEVERITY Status: Acute Comment: Debridement/amputation of left 4th, 5th toes on 06/12/18. Wound vac. +Proteus. Pt did not take Prescribed PO ABx after discharge on 06/16/18.. Restarted (8) Anemia, normocytic normochromic Code(s): D64.9 - ANEMIA, UNSPECIFIED Status: Chronic (9) CKD (chronic kidney disease) stage 3, GFR 30-59 ml/min Code(s): N18.3 - CHRONIC KIDNEY DISEASE, STAGE 3 (MODERATE) Status: Chronic (10) Dyslipidemia Code(s): E78.5 - HYPERLIPIDEMIA, UNSPECIFIED Status: Chronic Comment: Atorvastin. 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 Coreg, amlodipine, Losartan. (13) Morbid obesity with BMI of 50.0-59.9, adult Code(s): E66.01 - MORBID (SEVERE) OBESITY DUE TO EXCESS CALORIES; Z68.43 - BODY MASS INDEX (BMI) 50-59.9, ADULT Status: Chronic - Plan respiratory therapy, incentive spirometry, out of bed/ambulate, DVT proph w/ lovenox, DVT proph w/SCDs check cardiac enzymes,EKG to r/o cardiac etiology of chest pain -: suspect gastritis /esophagitis from dry heaves/vomiting yesterday.PPI IV -: r/o PE. Cr high for CTA. get V/Q.pt immobilized but getting prophylaxis -: give 1 amp CaGluconate for hyperkalemia.stop ARB.add prn hydralazine for BP -: Start IVF as apperas dry w hyperglycemia. Bicarb drip * .Consult Nephrology for worsening renal failure. care discussed w Dr. Rendon * Repeat CBC ,LA. * Move to IMCU for closer monitoring. Review of Systems - Review of Systems Constitutional: weakness, malaise. negative: fever, chills, sweats, other Cardiovascular: chest pain Gastrointestinal: Nausea. negative: Vomiting, Abdominal Pain, Diarrhea, Constipation, Melena, Hematochezia, Other Genitourinary: negative: Dysuria, Frequency, Incontinence, Hematuria, Retention , Other Musculoskeletal: negative: Neck Pain, Shoulder Pain, Arm Pain, Back Pain, Hand Pain, Leg Pain, Foot Pain, Other Skin: negative: Rash, Lesions, Papi, Bruising, Other Neurological: negative: Weakness, Numbness, Incoordination, Change in Speech, Confusion, Seizures, Other - Medications/Allergies Allergies/Adverse Reactions: Allergies Allergy/AdvReac Type Severity Reaction Status Date / Time lisinopril Allergy Severe Anaphylaxis Verified 06/19/18 07:33 Medications: Current Medications Acetaminophen (Tylenol) 650 mg PO Q4H PRN PRN Reason: Headache/Fever/Mild Pain (1-3) Al Hydroxide/Mg Hydroxide (Maalox) 30 ml PO Q4H PRN PRN Reason: Heartburn or Indigestion Amitriptyline HCl (Elavil) 25 mg PO BID [facility] Last Admin: 06/20/18 08:51 Dose: 25 mg Amlodipine Besylate (Norvasc) 10 mg PO DAILY [facility] Last Admin: 06/20/18 08:52 Dose: 10 mg Amoxicillin/Clavulanate Potassium (Augmentin) 875 mg PO Q12HR [facility] Last Admin: 06/20/18 08:52 Dose: 875 mg Aspirin (Ecotrin) 81 mg PO DAILY [facility] Last Admin: 06/20/18 08:52 Dose: 81 mg Atorvastatin Calcium (Lipitor) 40 mg PO HS [facility] Last Admin: 06/19/18 20:42 Dose: 40 mg Benzonatate (Tessalon) 100 mg PO TID PRN PRN Reason: Cough [facility] Admin: 06/20/18 08:51 Dose: 25 mg Ciprofloxacin (Cipro) 500 mg PO BID [facility] Last Admin: 06/20/18 08:52 Dose: 500 mg Clonidine (Catapres) 0.2 mg PO BID [facility] Last Admin: 06/20/18 08:52 Dose: 0.2 mg Dextrose/Water (Dextrose 50%) 25 gm SLOW IVP PRN PRN PRN Reason: Hypoglycemia Enoxaparin Sodium (Lovenox) 40 mg SC 0900 [facility] Last Admin: 06/20/18 08:53 Dose: 40 mg Ferrous Sulfate (Feosol) [facility] Last Admin: 06/20/18 08:52 Dose: 325 mg Gabapentin (Neurontin) 600 mg PO BID [facility] Last Admin: 06/20/18 08:52 Dose: 600 mg Glucagon (Glucagon) 1 mg IM PRN PRN PRN Reason: Hypoglycemia Guaifenesin/Dextromethorphan (Robitussin Dm) 15 ml PO Q4H PRN PRN Reason: Cough Hydralazine HCl (Apresoline) 10 mg SLOW IVP Q4H PRN PRN Reason: SBP>170 Nitroglycerin/Dextrose (Nitroglycerin 50 Mg/250 Ml Bot) 250 mls @ 0 mls/hr IVPB INF [facility]; Protocol Last Admin: 06/19/18 08:17 Dose: 250 mls Dextrose/Water (D5w) 1,000 mls @ 0 mls/hr IV .Q0M PRN PRN Reason: Hypoglycemia Insulin Glargine 15 units/ (Miscellaneous Medication) 0.15 mls @ 0 mls/hr SC [facility] Sodium Bicarbonate 150 meq/ (Dextrose/Sodium Chloride) 1,150 mls @ 100 mls/hr IV .[id number] [facility] Last Admin: 06/20/18 11:08 Dose: 1,150 mls Insulin Human Lispro (Humalog) 0 units SC .MODERATE SLIDING SC PRN PRN Reason: Moderate Correctional Scale Last Admin: 06/20/18 05:53 Dose: 10 unit Insulin Human Lispro (Humalog) 0 units SC .BEDTIME SLIDING SC PRN PRN Reason: Bedtime Correctional Scale Last Admin: 06/19/18 20:55 Dose: 4 unit Insulin Human Lispro (Humalog) 15 units SC TID[facility] Last Admin: 06/20/18 08:53 Dose: 15 unit/kg Labetalol HCl (Normodyne) 20 mg SLOW IVP Q4H PRN PRN Reason: Blood Pressure Last Admin: 06/19/18 14:20 Dose: 20 mg Metoclopramide HCl (Reglan) 10 mg PO ACHS [facility] Last Admin: 06/20/18 08:51 Dose: 10 mg Metoclopramide HCl (Reglan) 10 mg IVP Q8HR [facility] Last Admin: 06/20/18 05:55 Dose: 10 mg Morphine Sulfate (Morphine) 4 mg SLOW IVP Q4H PRN PRN Reason: pain with dressing changes Pantoprazole Sodium (Protonix) 40 mg IVP DAILY [facility] Last Admin: 06/20/18 08:52 Dose: 40 mg Saccharomyces Boulardii (Florastor) 250 mg PO BID [facility] Last Admin: 06/20/18 08:51 Dose: 250 mg Senna/Docusate Sodium (Senokot S) 2 tab PO BID PRN PRN Reason: Constipation Tramadol HCl (Ultram) 100 mg PO Q6H PRN PRN Reason: Mild Pain (1-3) 2ND LINE Last Admin: 06/19/18 18:55 Dose: 100 mg
[2018-06-20 13:15] LABS: #Eosinphils 0.9 thou/uL (0.0-0.7); #Lymphocytes 3.4 thou/uL (1.20-3.40); #Monocytes 2.1 thou/uL (0.11-0.59); #Neutrophils 12.1 thou/uL (1.40-6.50); %Basophils 0.1 % (0.0-1.0); %Eosinophils 4.7 % (0.0-10.0); %Lymphocytes 18.4 % (21.0-51.0); %Monocytes 11.2 % (0.0-10.0); %Neutrophils 65.6 % (42.0-75.0); Hemoglobin 7.5 g/dL (12.0-16.0); Mean Corpuscular HGB CONC 31.8 g/dL (32.0-36.0); Mean Corpuscular Hemoglobin 29.9 pg (27.0-31.0); Mean Corpuscular Volume 93.9 fL (78.0-98.0); Platelet Count 453 thou/uL (130-400); RBC Distribution Width 12.1 % (11.5-14.5); Red Blood Cell (RBC) Count 2.52 mill/uL (4.20-5.40); White Blood Cell (WBC) Count 18.4 thou/uL (4.8-10.8)
[2018-06-20 13:30] LABS: Lactic Acid 1.5 mmol/L (0.5-2.2)
--- NOTE | 2018-06-20 13:46 | CON ---
DATE OF CONSULTATION: 06/20/2018 REASON FOR CONSULTATION: Elevated creatinine. HISTORY OF PRESENT ILLNESS: This is a very pleasant 43-year-old female who presented to the hospital on 06/18/2018. Her creatinine was 4.1 on June 14, which improved to 1.5, but has started increa sing to 2.3 today, so I was consulted. The patient also reported she had a potassium of 5.8 this mor yvan with a bicarbonate of 10. The patient does complain of some chest pain on and off since admissi on. The patient has bilateral lower extremity swelling. PAST MEDICAL HISTORY: Diabetic foot ulcer, acute kidney injury, chronic kidney disease, peak creatin ine was 4.1, history of hyperlipidemia, peripheral neuropathy. PAST SURGICAL HISTORY: History of cardiac ablation, cholecystectomy. SOCIAL AND ECONOMIC HISTORY: No alcohol or IV drug abuse. FAMILY HISTORY: Negative for end-stage renal disease. HOME MEDICATIONS: List reviewed. HOSPITAL MEDICATIONS: List reviewed. ALLERGIES: Reviewed. REVIEW OF SYSTEMS: A 15-point review of systems was performed and was negative except for the positi ves noted above. GENERAL: Weakness-. HEAD: Headache-. NECK: No swelling or lumps. NOSE: No epistaxis or discharge. EYES: No diplopia or pain. RESPIRATORY: Dyspnea-. CARDIOVASCULAR: Chest pain-. GASTROINTESTINAL: Nausea-. /RESIDENT DOCTOR: Hematuria-. MUSCULOSKELETAL: No joint pain. NEUROPSYCHIATIC SYSTEMS: No suicidal ideation. No ideation. SKIN: Denies any rash or ulcer. CONSTITUTIONAL: No fever or chills. PHYSICAL EXAMINATION: GENERAL: Patient is awake, alert. VITAL SIGNS: Afebrile, pulse 106, breathing at 16, blood pressure 172/88. GENERAL APPEARANCE AND MENTAL STATUS: Fair. HEAD/NECK: Normocephalic. Atraumatic. EYES: EOMI. No deformity. EARS: Clear. No ulcers. NOSE: Intact. No lesions. MOUTH: Clear. No discharge. THROAT: Clear. No exudate. LUNGS: Clear. No crackles. CARDIAC: S1, S2. No rub. ABDOMEN: Benign. BS+. GENITALIA/RECTUM: Alicia absent. BACK/EXTREMITIES: Edema 0+ Ulcer-. NEUROLOGICAL: Alert and motor intact. SKIN: Rash- Bruise- LYMPHATICS: Edema- Ulcer-. LABORATORY DATA: Show potassium is 5.8, bicarbonate 10. ASSESSMENT AND RECOMMENDATIONS: 1. Acute kidney injury with chronic kidney disease with metabolic acidosis, hyperkalemia. I would r ecommend starting a bicarbonate drip for metabolic acidosis and checking a blood gas. 2. Anemia, stable. 3. Sepsis. 4. Hypertension, stable. No indication for dialysis at this time.
[2018-06-20 14:32] LABS: Troponin I Less than 0.010 ng/mL (< 0.028)
--- NOTE | 2018-06-20 14:36 | NM ---
VQ SCAN: INDICATION: History of chest pain and tachycardia. COMPARISON: Chest radiograph dated 06/18/2018 at 11:41 p.m. FINDINGS: 6.2 mCi Technetium 99m-MAA was utilized for the perfusion evaluation. No large pleural-based perfusi on defect is evident. 14 mCi Xenon 133 inhaled was utilized for the ventilatory examination. No large ventilatory defect i s evident. No retention is noted. IMPRESSION: Low probability VQ scan for PE> POS: [facility]
--- NOTE | 2018-06-20 14:37 | RAD ---
PORTABLE CHEST 1 VIEW: DATE: 06/20/2018. TIME: 12:3 p.m. HISTORY: Chest pain. FINDINGS: Comparison is made with the exam of previous day. Right internal jugular central line remains in man ce. The heart size is normal. The lungs are expanded without focal areas of consolidation, pneumoth orax, or pleural effusions. IMPRESSION: No acute process. POS: [facility]
[2018-06-20 15:33] LABS: pH, Arterial 7.36 (7.35-7.45)
[2018-06-20 15:34] LABS: Actual Bicarbonate (HCO3a) 13.3 mEq/L (22-28); Base Excess (BEa) -10.7 mEq/L (-2.0 to +3.0); CO2 Tension 24.1 mmHg (35.0-45.0); Carboxyhemoglobin (COHb) 0.4 gm% (0.0-3.0); Hemoglobin (Hb) 9.8 g/dL (12.0-16.0); O2 Tension (PaO2) 86.8 mmHg (80.0-100.0)
[2018-06-20 15:35] LABS: ALV-art Gradient 32.805 (0-20); Analyzer IN Cardio OR; Calcium, Ionized 1.18 mmol/L (1.12-1.30); Potassium - ABG Lab 4.89 mmol/L (3.70-5.30); Puncture Site LB
--- NOTE | 2018-06-20 16:48 | PRG ---
DATE OF SERVICE: 06/20/2018 SUBJECTIVE: Ms. Newton is evaluated early this morning. She had no complaints. She said she felt l obed she was well enough to go home. After lunch, I was told she was transferred to the intermediate care unit. I evaluated her and she was sleeping comfortably. When I awakened her, she had no compla ints. OBJECTIVE: LUNGS: Clear. HEART: Regular rhythm. ABDOMEN: Soft. She is not tachypneic. LABORATORY DATA: White count 18.4, hemoglobin 7.5, yesterday 7.9, platelets 453. Sodium 136, potass ium 5.8, chloride 116, bicarbonate 10, BUN 31, creatinine 2.36. IMPRESSION: 1. Diabetes. 2. Hyperchloremic acidosis. 3. Obesity. 4. Chronic kidney disease. 5. Hyperkalemia. We will continue to follow.
[2018-06-20 18:14] LABS: Troponin I Less than 0.010 ng/mL (< 0.028)
[2018-06-20] MEDS: Atorvastatin Calcium 40 MG TAB PO SCH (20:16)
[2018-06-20 20:52] LABS: Troponin I Less than 0.010 ng/mL (< 0.028)
[2018-06-20] MEDS: Insulin Glargine 15 UNITS in Pre-Filled Syringe 1 EACH SC SCH (22:04)
[2018-06-21] MEDS: Labetalol HCl 100 MG/20 ML VIAL SLOW IVP PRN ×2 (01:13→05:43)
[2018-06-21] MEDS: Sodium Bicarbonate 150 MEQ in D5 1/4 NS 1,000 ML IV SCH (03:10)
[2018-06-21] MEDS: Metoclopramide HCl 10 MG/2 ML VIAL IVP SCH ×2 (05:42→16:02)
[2018-06-21 06:15] LABS: Anion Gap 14 mmol/L (10-20); BUN (Urea Nitrogen) 25 mg/dL (7.0-18.7); Calc. Creatinine Clearance 121 mL/min (70-130); Calcium 8.3 mg/dL (7.8-10.44); Carbon Dioxide 21 mmol/L (22-29); Chloride 110 mmol/L (98-107); Estimated GFR-MDRD 42; Glucose 309 mg/dL (70-105); Potassium 4.9 mmol/L (3.5-5.1); Sodium 140 mmol/L (136-145)
[2018-06-21] MEDS: HumaLOG 300 UNITS/3 ML VIAL SC SCH ×3 (09:10→17:08)
[2018-06-21] MEDS: Carvedilol 25 MG TAB PO SCH ×2 (09:10→17:06)
[2018-06-21] MEDS: Ferrous Sulfate 325 MG TAB PO SCH ×2 (09:10→17:06)
[2018-06-21] MEDS: Amitriptyline HCl 25 MG TAB PO SCH ×2 (09:11→21:00)
[2018-06-21] MEDS: Ciprofloxacin 500 MG TAB PO SCH ×2 (09:11→21:00)
[2018-06-21] MEDS: cloNIDine 0.2 MG TAB PO SCH ×2 (09:11→21:00)
[2018-06-21] MEDS: Amlodipine 10 MG TAB PO SCH (09:11)
[2018-06-21] MEDS: Aspirin 81 mg Enteric Coated Tablet PO SCH (09:11)
[2018-06-21] MEDS: Gabapentin 300 MG CAP PO SCH ×2 (09:11→21:00)
[2018-06-21] MEDS: Amoxicillin/Potassium Clav 875 MG TAB PO SCH ×2 (09:11→21:00)
[2018-06-21] MEDS: Pantoprazole 40 MG VIAL IVP SCH (09:12)
[2018-06-21] MEDS: Enoxaparin Sodium 40 MG/0.4 ML SYRINGE SC SCH (09:12)
[2018-06-21] MEDS: Saccharomyces boulardii 250 MG CAP PO SCH ×2 (09:12→21:00)
[2018-06-21] MEDS: Metoclopramide HCl 10 MG TAB PO SCH ×4 (09:31→20:59)
--- NOTE | 2018-06-21 13:51 | PRG ---
DATE OF SERVICE: 06/21/2018 SUBJECTIVE: Lamar is in no distress. She wants to go home. PHYSICAL EXAMINATION: VITAL SIGNS: She is afebrile, heart rate 103, blood pressure 150/94, respiratory rate 16. She is 10 0% sat on room air, blood pressure 116/96. LUNGS: Clear. HEART: Regular rhythm. ABDOMEN: Soft and nontender. EXTREMITIES: Without edema. LABORATORY DATA: There is no CBC today. Sodium 140, potassium 4.9, chloride 110, bicarbonate 21, an ion gap is 9, BUN 25, creatinine 1.64, glucose has been in the 100-300 range today. IMPRESSION: 1. Diabetes. 2. Obesity. 3. Deconditioning. 4. Hyperchloremic acidosis secondary to volume improving. 5. Chronic kidney disease appears to be stable. 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 I will see her as needed in the future. I believe she is s table for discharge.
--- NOTE | 2018-06-21 15:01 | PRG ---
DATE OF SERVICE: 06/21/2018 SUBJECTIVE: A 43-year-old female being seen for acute kidney injury. The patient denies any nausea, vomiting and chest pain. PHYSICAL EXAMINATION: GENERAL: Patient is awake and alert. VITAL SIGNS: Afebrile, pulse , breathing 16, blood pressure . HEAD/NECK: Normocephalic. Atraumatic. EYES: EOMI. No deformity. EARS: Clear. No ulcers. NOSE: Intact. No lesions. MOUTH: Clear. No discharge. THROAT: Clear. No exudate. LUNGS: Clear. No crackles. CARDIAC: S1, S2. No rub. ABDOMEN: Benign. BS+. GENITALIA/RECTUM: Alicia absent. BACK/EXTREMITIES: Edema 0+ Ulcer- NEUROLOGICAL: Alert and motor intact. SKIN: Rash- Bruise- LYMPHATICS: Edema- Ulcer- LABORATORY DATA: Show hemoglobin 7.5, creatinine 1.6. ASSESSMENT AND RECOMMENDATIONS: 1. Acute kidney injury, improved. 2. Hypertension, stable. 3. Anemia, stable. 4. Metabolic acidosis, stable. 5. Anemia. Would recommend transfusion of 1 unit of packed red blood cells and checking stat hemogl obin.
--- NOTE | 2018-06-21 15:29 | PDOC.PN ---
- Subjective Encounter Start Date: 06/21/18 Encounter Start Time: 15:27 Subjective: feels weak and tired.poor appetite -: on and off chest pain substernally - Objective Resuscitation Status: Resuscitation Status FULL:Full Resuscitation MAR Reviewed: Yes Vital Signs & Weight: Vital Signs (12 hours) Temp Pulse Resp BP BP Pulse Ox 06/21/18 11:14 98.6 F 103 H 16 116/96 H 100 06/21/18 09:11 106 H 152/94 H 06/21/18 08:00 99.1 F 112 H 16 152/94 H 100 06/21/18 05:38 111 H 193/112 H 06/21/18 04:00 98.9 F 118 H 20 182/114 H 100 Weight Admit Weight 338 lb 6.553 oz Weight 377 lb 5 oz Most Recent Monitor Data Heart Rate from ECG 100 NIBP 146/92 NIBP BP-Mean 110 Respiration from ECG 16 SpO2 100 I&O: 06/20/18 06/21/18 06/22/18 06:59 06:59 06:59 Intake Total 2713 4202 Output Total 320 2525 Balance 2393 1677 Result Diagrams: 06/20/18 13:02 06/21/18 05:40 Additional Labs: Accuchecks 06/21/18 06/20/18 06/20/18 11:39 20:11 17:53 POC Glucose 255 H 159 H 176 H Laboratory Tests 06/18/18 06/18/18 06/18/18 00:35 15:57 21:02 Creatinine 1.69 H 1.66 H 1.54 H 06/19/18 06/20/18 06/21/18 04:18 04:25 05:40 Creatinine 1.81 H 2.36 H 1.64 H Phys Exam - Physical Examination pale,diaphoretic and weak looking HEENT: PERRLA, moist MMs, sclera anicteric, oral pharynx no lesions Neck: no nodes, no JVD, supple, full ROM Respiratory: no wheezing, no rales, no rhonchi, clear to auscultation bilateral Cardiovascular: RRR, no significant murmur tachycardia Gastrointestinal: soft, non-tender, no distention, positive bowel sounds Musculoskeletal: no edema, pulses present Neurological: non-focal, normal sensation, moves all 4 limbs Dx/Plan (1) Chest pain Code(s): R07.9 - CHEST PAIN, UNSPECIFIED Status: Acute Comment: ACS and PE ruled out.Suspect Gastiritis or GERD (2) Acute on chronic kidney failure Code(s): N17.9 - ACUTE KIDNEY FAILURE, UNSPECIFIED; N18.9 - CHRONIC KIDNEY DISEASE, UNSPECIFIED Status: Acute Comment: slightly improved. D/W Nephrology. (3) Hyperkalemia Code(s): E87.5 - HYPERKALEMIA Status: Resolved (4) Metabolic acidosis Code(s): E87.2 - ACIDOSIS Status: Acute Comment: improving (5) Uncontrolled hypertension Code(s): I10 - ESSENTIAL (PRIMARY) HYPERTENSION Status: Acute (6) DKA (diabetic ketoacidoses) Code(s): E13.10 - OTH DIABETES MELLITUS WITH KETOACIDOSIS WITHOUT COMA Status : Resolved Qualifiers: Diabetes mellitus type: type 1 Comment: Resolved .AG closed (7) Diabetes mellitus with foot ulcer and gangrene Code(s): E11.621 - TYPE 2 DIABETES MELLITUS WITH FOOT ULCER; E11.52 - TYPE 2 DIABETES W DIABETIC PERIPHERAL ANGIOPATHY W GANGRENE; L97.509 - NON-PRESSURE CHRONIC ULCER OTH PRT UNSP FOOT W UNSP SEVERITY Status: Acute Comment: Debridement/amputation of left 4th, 5th toes on 06/12/18. Wound vac. +Proteus. Pt did not take Prescribed PO ABx after discharge on 06/16/18.. Restarted (8) Anemia, normocytic normochromic Code(s): D64.9 - ANEMIA, UNSPECIFIED Status: Chronic Comment: IV iron yesterday for low levels on 06/20/18 (9) CKD (chronic kidney disease) stage 3, GFR 30-59 ml/min Code(s): N18.3 - CHRONIC KIDNEY DISEASE, STAGE 3 (MODERATE) Status: Chronic (10) Dyslipidemia Code(s): E78.5 - HYPERLIPIDEMIA, UNSPECIFIED Status: Chronic Comment: Atorvastin. 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 Coreg, amlodipine, Losartan. (13) Morbid obesity with BMI of 50.0-59.9, adult Code(s): E66.01 - MORBID (SEVERE) OBESITY DUE TO EXCESS CALORIES; Z68.43 - BODY MASS INDEX (BMI) 50-59.9, ADULT Status: Chronic - Plan respiratory therapy, incentive spirometry, out of bed/ambulate, DVT proph w/SCDs Pt still looks sick and remains tachycardic. -: agree w H/H follow up to see if anemia is causing this -: may need transfusion -: DC IVF as bicarb much improved & potential for Fluiod OL -: BP a little better.cont to monitor closely.Troponin negatoive * .Will transfer to Medical but will keep in house for further observation * cont ABx po as started last admit Review of Systems - Medications/Allergies Allergies/Adverse Reactions: Allergies Allergy/AdvReac Type Severity Reaction Status Date / Time lisinopril Allergy Severe Anaphylaxis Verified 06/19/18 07:33 Medications: Current Medications Acetaminophen (Tylenol) 650 mg PO Q4H PRN PRN Reason: Headache/Fever/Mild Pain (1-3) Al Hydroxide/Mg Hydroxide (Maalox) 30 ml PO Q4H PRN PRN Reason: Heartburn or Indigestion Amitriptyline HCl (Elavil) 25 mg PO BID [facility] Last Admin: 06/21/18 09:11 Dose: 25 mg Amlodipine Besylate (Norvasc) 10 mg PO DAILY [facility] Last Admin: 06/21/18 09:11 Dose: 10 mg Amoxicillin/Clavulanate Potassium (Augmentin) 875 mg PO Q12HR [facility] Last Admin: 06/21/18 09:11 Dose: 875 mg Aspirin (Ecotrin) 81 mg PO DAILY [facility] Last Admin: 06/21/18 09:11 Dose: 81 mg Atorvastatin Calcium (Lipitor) 40 mg PO HS [facility] Last Admin: 06/20/18 20:16 Dose: 40 mg Benzonatate (Tessalon) 100 mg PO TID PRN PRN Reason: Cough Carvedilol (Coreg) 25 mg PO BID-WM [facility] Last Admin: 06/21/18 09:10 Dose: 25 mg Ciprofloxacin (Cipro) 500 mg PO BID [facility] Last Admin: 06/21/18 09:11 Dose: 500 mg Clonidine (Catapres) 0.2 mg PO BID [facility] Last Admin: 06/21/18 09:11 Dose: 0.2 mg Dextrose/Water (Dextrose 50%) 25 gm SLOW IVP PRN PRN PRN Reason: Hypoglycemia Enoxaparin Sodium (Lovenox) 40 mg SC 0900 [facility] Last Admin: 06/21/18 09:12 Dose: 40 mg Ferrous Sulfate (Feosol) 325 mg PO BID[facility] Last Admin: 06/21/18 09:10 Dose: 325 mg Gabapentin (Neurontin) 600 mg PO BID [facility] Last Admin: 06/21/18 09:11 Dose: 600 mg Glucagon (Glucagon) 1 mg IM PRN PRN PRN Reason: Hypoglycemia Guaifenesin/Dextromethorphan (Robitussin Dm) 15 ml PO Q4H PRN PRN Reason: Cough Hydralazine HCl (Apresoline) 10 mg SLOW IVP Q4H PRN PRN Reason: SBP>170 Last Admin: 06/21/18 00:17 Dose: 10 mg Nitroglycerin/Dextrose (Nitroglycerin 50 Mg/250 Ml Bot) 250 mls @ 0 mls/hr IVPB INF [facility]; Protocol Last Admin: 06/19/18 08:17 Dose: 250 mls Dextrose/Water (D5w) 1,000 mls @ 0 mls/hr IV .Q0M PRN PRN Reason: Hypoglycemia Insulin Glargine 15 units/ (Miscellaneous Medication) 0.15 mls @ 0 mls/hr SC [facility] Last Admin: 06/20/18 22:04 Dose: 0.15 mls Insulin Human Lispro (Humalog) 0 units SC .MODERATE SLIDING SC PRN PRN Reason: Moderate Correctional Scale Last Admin: 06/20/18 05:53 Dose: 10 unit Insulin Human Lispro (Humalog) 0 units SC .BEDTIME SLIDING SC PRN PRN Reason: Bedtime Correctional Scale Last Admin: 06/19/18 20:55 Dose: 4 unit Insulin Human Lispro (Humalog) 15 units SC TID-[facility] Last Admin: 06/21/18 11:55 Dose: 15 unit Labetalol HCl (Normodyne) 20 mg SLOW IVP Q4H PRN PRN Reason: Blood Pressure Last Admin: 06/21/18 05:43 Dose: 20 mg Metoclopramide HCl (Reglan) 10 mg PO [facility] Last Admin: 06/21/18 11:55 Dose: 10 mg Metoclopramide HCl (Reglan) 10 mg IVP Q8HR [facility] Last Admin: 06/21/18 05:42 Dose: 10 mg Morphine Sulfate (Morphine) 4 mg SLOW IVP Q4H PRN PRN Reason: pain with dressing changes Pantoprazole Sodium (Protonix) 40 mg IVP DAILY [facility] Last Admin: 06/21/18 09:12 Dose: 40 mg Saccharomyces Boulardii (Florastor) 250 mg PO BID [facility] Last Admin: 06/21/18 09:12 Dose: 250 mg Senna/Docusate Sodium (Senokot S) 2 tab PO BID PRN PRN Reason: Constipation Tramadol HCl (Ultram) 100 mg PO Q6H PRN PRN Reason: Mild Pain (1-3) 2ND LINE Last Admin: 06/19/18 18:55 Dose: 100 mg
[2018-06-21 15:33] LABS: Hemoglobin 7.4 g/dL (12.0-16.0)
[2018-06-21] MEDS: Insulin Glargine 15 UNITS in Pre-Filled Syringe 1 EACH SC SCH (20:44)
[2018-06-21] MEDS: Atorvastatin Calcium 40 MG TAB PO SCH (20:59)
[2018-06-22 05:27] LABS: Anion Gap 11 mmol/L (10-20); BUN (Urea Nitrogen) 27 mg/dL (7.0-18.7); Calc. Creatinine Clearance 122 mL/min (70-130); Calcium 8.1 mg/dL (7.8-10.44); Carbon Dioxide 23 mmol/L (22-29); Chloride 110 mmol/L (98-107); Estimated GFR-MDRD 40; Glucose 144 mg/dL (70-105); Potassium 4.4 mmol/L (3.5-5.1); Sodium 140 mmol/L (136-145)
[2018-06-22] MEDS: Ciprofloxacin 500 MG TAB PO SCH ×2 (09:01→20:53)
[2018-06-22] MEDS: Saccharomyces boulardii 250 MG CAP PO SCH ×2 (09:01→20:53)
[2018-06-22] MEDS: Pantoprazole 40 MG VIAL IVP SCH (09:01)
[2018-06-22] MEDS: cloNIDine 0.2 MG TAB PO SCH ×2 (09:02→20:53)
[2018-06-22] MEDS: Amitriptyline HCl 25 MG TAB PO SCH ×2 (09:02→20:54)
[2018-06-22] MEDS: Amlodipine 10 MG TAB PO SCH (09:02)
[2018-06-22] MEDS: Gabapentin 300 MG CAP PO SCH ×2 (09:02→20:53)
[2018-06-22] MEDS: Amoxicillin/Potassium Clav 875 MG TAB PO SCH ×2 (09:02→20:52)
[2018-06-22] MEDS: Ferrous Sulfate 325 MG TAB PO SCH ×2 (09:03→17:39)
[2018-06-22] MEDS: Enoxaparin Sodium 40 MG/0.4 ML SYRINGE SC SCH (09:03)
[2018-06-22] MEDS: Aspirin 81 mg Enteric Coated Tablet PO SCH (09:03)
[2018-06-22] MEDS: HumaLOG 300 UNITS/3 ML VIAL SC SCH ×3 (09:03→17:19)
[2018-06-22] MEDS: Metoclopramide HCl 10 MG TAB PO SCH ×4 (09:04→20:54)
[2018-06-22] MEDS: Carvedilol 25 MG TAB PO SCH ×2 (09:04→17:39)
--- NOTE | 2018-06-22 11:55 | PDOC.PN ---
- Subjective Encounter Start Date: 06/22/18 Encounter Start Time: 11:53 Subjective: feels well and ready o go home.working w PT here -: denies any more chest pain.no SOB - Objective Resuscitation Status: Resuscitation Status FULL:Full Resuscitation MAR Reviewed: Yes Vital Signs & Weight: Vital Signs (12 hours) Temp Pulse Resp BP BP Pulse Ox 06/22/18 09:02 102 H 148/64 H 06/22/18 08:00 96 06/22/18 07:42 98.7 F 102 H 16 148/64 H 96 06/22/18 04:00 98.4 F 103 H 20 145/83 H 94 L 06/22/18 00:08 98.5 F 100 20 134/84 93 L Weight Admit Weight 338 lb 6.553 oz Weight 391 lb 7 oz Most Recent Monitor Data Heart Rate from ECG 100 NIBP 146/92 NIBP BP-Mean 110 Respiration from ECG 16 SpO2 100 I&O: 06/21/18 06/22/18 06/23/18 06:59 06:59 06:59 Intake Total 4202 1764 240 Output Total 2525 900 Balance 1677 864 240 Result Diagrams: 06/21/18 15:22 06/22/18 04:50 Additional Labs: Accuchecks 06/22/18 06/22/18 06/21/18 08:41 04:48 20:43 POC Glucose 162 H 157 H 108 06/21/18 06/21/18 16:28 11:39 POC Glucose 118 H 255 H Microbiology 06/18/18 16:16 Urine stanford catheter Urine Culture - Final NO GROWTH AT 48 HOURS Laboratory Tests 06/18/18 06/18/18 06/18/18 00:35 15:57 21:02 Creatinine 1.69 H 1.66 H 1.54 H 06/19/18 06/20/18 06/21/18 04:18 04:25 05:40 Creatinine 1.81 H 2.36 H 1.64 H 06/22/18 04:50 Creatinine 1.69 H Phys Exam - Physical Examination Constitutional: NAD HEENT: PERRLA, moist MMs, sclera anicteric, oral pharynx no lesions Neck: no nodes, no JVD, supple, full ROM Respiratory: no wheezing, no rales, no rhonchi, clear to auscultation bilateral Cardiovascular: RRR, no significant murmur, no rub, gallop Gastrointestinal: soft, non-tender, no distention, positive bowel sounds Musculoskeletal: no edema, pulses present Neurological: non-focal, normal sensation, moves all 4 limbs Psychiatric: normal affect, A&O x 3 Skin: no rash Dx/Plan (1) Acute on chronic kidney failure Code(s): N17.9 - ACUTE KIDNEY FAILURE, UNSPECIFIED; N18.9 - CHRONIC KIDNEY DISEASE, UNSPECIFIED Status: Acute Comment: slightly improved. D/W Nephrology. (2) Chest pain Code(s): R07.9 - CHEST PAIN, UNSPECIFIED Status: Resolved Comment: ACS and PE ruled out.Suspect Gastiritis or GERD (3) Hyperkalemia Code(s): E87.5 - HYPERKALEMIA Status: Resolved (4) Metabolic acidosis Code(s): E87.2 - ACIDOSIS Status: Resolved Comment: improving (5) Uncontrolled hypertension Code(s): I10 - ESSENTIAL (PRIMARY) HYPERTENSION Status: Resolved (6) DKA (diabetic ketoacidoses) Code(s): E13.10 - OTH DIABETES MELLITUS WITH KETOACIDOSIS WITHOUT COMA Status : Resolved Qualifiers: Diabetes mellitus type: type 1 Comment: Resolved .AG closed (7) Diabetes mellitus with foot ulcer and gangrene Code(s): E11.621 - TYPE 2 DIABETES MELLITUS WITH FOOT ULCER; E11.52 - TYPE 2 DIABETES W DIABETIC PERIPHERAL ANGIOPATHY W GANGRENE; L97.509 - NON-PRESSURE CHRONIC ULCER OTH PRT UNSP FOOT W UNSP SEVERITY Status: Acute Comment: Debridement/amputation of left 4th, 5th toes on 06/12/18. Wound vac. +Proteus. Pt did not take Prescribed PO ABx after discharge on 06/16/18.. Restarted (8) Anemia, normocytic normochromic Code(s): D64.9 - ANEMIA, UNSPECIFIED Status: Chronic Comment: IV iron yesterday for low levels on 06/20/18 (9) CKD (chronic kidney disease) stage 3, GFR 30-59 ml/min Code(s): N18.3 - CHRONIC KIDNEY DISEASE, STAGE 3 (MODERATE) Status: Chronic (10) Dyslipidemia Code(s): E78.5 - HYPERLIPIDEMIA, UNSPECIFIED Status: Chronic Comment: Atorvastin. 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 Coreg, amlodipine, Losartan. (13) Morbid obesity with BMI of 50.0-59.9, adult Code(s): E66.01 - MORBID (SEVERE) OBESITY DUE TO EXCESS CALORIES; Z68.43 - BODY MASS INDEX (BMI) 50-59.9, ADULT Status: Chronic - Plan continue antibiotics, PT/OT, DVT proph w/SCDs OK to DC clinically by H/H still low .no overt bleed -: tachycardia and HTN have imporoved' -: acidosis,MILI and Hyperkalemia improved as well -: Monitor overnight fo H/H per nephro recs.appreciate help -: DC home in am if H/H stable * . Review of Systems - Review of Systems Constitutional: negative: fever, chills, sweats, weakness, malaise, other ENT: negative: Ear Pain, Ear Discharge, Nose Pain, Nose Discharge, Nose Congestion, Mouth Pain, Mouth Swelling, Throat Pain, Throat Swelling, Other Respiratory: negative: Cough, Dry, Shortness of Breath, Hemoptysis, SOB with Excertion, Pleuritic Pain, Sputum, Wheezing Cardiovascular: negative: chest pain, palpitations, orthopnea, paroxysmal nocturnal dyspnea, edema, light headedness, other Gastrointestinal: negative: Nausea, Vomiting, Abdominal Pain, Diarrhea, Constipation, Melena, Hematochezia, Other Genitourinary: negative: Dysuria, Frequency, Incontinence, Hematuria, Retention , Other Musculoskeletal: negative: Neck Pain, Shoulder Pain, Arm Pain, Back Pain, Hand Pain, Leg Pain, Foot Pain, Other Skin: negative: Rash, Lesions, Papi, Bruising, Other Neurological: negative: Weakness, Numbness, Incoordination, Change in Speech, Confusion, Seizures, Other - Medications/Allergies Allergies/Adverse Reactions: Allergies Allergy/AdvReac Type Severity Reaction Status Date / Time lisinopril Allergy Severe Anaphylaxis Verified 06/19/18 07:33 Medications: Current Medications Acetaminophen (Tylenol) 650 mg PO Q4H PRN PRN Reason: Headache/Fever/Mild Pain (1-3) Al Hydroxide/Mg Hydroxide (Maalox) 30 ml PO Q4H PRN PRN Reason: Heartburn or Indigestion Amitriptyline HCl (Elavil) 25 mg PO BID [facility] Last Admin: 06/22/18 09:02 Dose: 25 mg Amlodipine Besylate (Norvasc) 10 mg PO DAILY [facility] Last Admin: 06/22/18 09:02 Dose: 10 mg Amoxicillin/Clavulanate Potassium (Augmentin) 875 mg PO Q12HR [facility] Last Admin: 06/22/18 09:02 Dose: 875 mg Aspirin (Ecotrin) 81 mg PO DAILY [facility] Last Admin: 06/22/18 09:03 Dose: 81 mg Atorvastatin Calcium (Lipitor) 40 mg PO HS [facility] Last Admin: 06/21/18 20:59 Dose: 40 mg Benzonatate (Tessalon) 100 mg PO TID PRN PRN Reason: Cough Carvedilol (Coreg) [facility] Last Admin: 06/22/18 09:04 Dose: 25 mg Ciprofloxacin (Cipro) 500 mg PO BID [facility] Last Admin: 06/22/18 09:01 Dose: 500 mg Clonidine (Catapres) 0.2 mg PO BID [facility] Last Admin: 06/22/18 09:02 Dose: 0.2 mg Dextrose/Water (Dextrose 50%) 25 gm SLOW IVP PRN PRN PRN Reason: Hypoglycemia Enoxaparin Sodium (Lovenox) 40 mg SC 0900 [facility] Last Admin: 06/22/18 09:03 Dose: 40 mg Ferrous Sulfate (Feosol) 325 [facility] Last Admin: 06/22/18 09:03 Dose: 325 mg Gabapentin (Neurontin) 600 mg PO BID [facility] Last Admin: 06/22/18 09:02 Dose: 600 mg Glucagon (Glucagon) 1 mg IM PRN PRN PRN Reason: Hypoglycemia Guaifenesin/Dextromethorphan (Robitussin Dm) 15 ml PO Q4H PRN PRN Reason: Cough Hydralazine HCl (Apresoline) 10 mg SLOW IVP Q4H PRN PRN Reason: SBP>170 Last Admin: 06/21/18 00:17 Dose: 10 mg Nitroglycerin/Dextrose (Nitroglycerin 50 Mg/250 Ml Bot) 250 mls @ 0 mls/hr IVPB INF [facility]; Protocol Last Admin: 06/19/18 08:17 Dose: 250 mls Dextrose/Water (D5w) 1,000 mls @ 0 mls/hr IV .Q0M PRN PRN Reason: Hypoglycemia Insulin Glargine 15 units/ (Miscellaneous Medication) 0.15 mls @ 0 mls/hr SC HS [facility] Last Admin: 06/21/18 20:44 Dose: Not Given Insulin Human Lispro (Humalog) 0 units SC .MODERATE SLIDING SC PRN PRN Reason: Moderate Correctional Scale Last Admin: 06/20/18 05:53 Dose: 10 unit Insulin Human Lispro (Humalog) 0 units SC .BEDTIME SLIDING SC PRN PRN Reason: Bedtime Correctional Scale Last Admin: 06/19/18 20:55 Dose: 4 unit Insulin Human Lispro (Humalog) 15 units SC T[facility] Last Admin: 06/22/18 09:03 Dose: 15 unit Labetalol HCl (Normodyne) 20 mg SLOW IVP Q4H PRN PRN Reason: Blood Pressure Last Admin: 06/21/18 05:43 Dose: 20 mg Metoclopramide HCl (Reglan) 10 mg PO [facility] Last Admin: 06/22/18 09:04 Dose: 10 mg Morphine Sulfate (Morphine) 4 mg SLOW IVP Q4H PRN PRN Reason: pain with dressing changes Pantoprazole Sodium (Protonix) 40 mg IVP DAILY [facility] Last Admin: 06/22/18 09:01 Dose: 40 mg Saccharomyces Boulardii (Florastor) 250 mg PO BID [facility] Last Admin: 06/22/18 09:01 Dose: 250 mg Senna/Docusate Sodium (Senokot S) 2 tab PO BID PRN PRN Reason: Constipation Tramadol HCl (Ultram) 100 mg PO Q6H PRN PRN Reason: Mild Pain (1-3) 2ND LINE Last Admin: 06/19/18 18:55 Dose: 100 mg
--- NOTE | 2018-06-22 12:27 | PDOC.EVN ---
Event Note - Event Note Event Note: pt not ready to stay additional night for H/H monitoring. will DC home w OP H/H follow upw PCP or Nephrology
--- NOTE | 2018-06-22 14:04 | PRG ---
DATE OF SERVICE: 06/22/2018 SUBJECTIVE: A 43-year-old female, being seen for acute kidney injury. The patient denies nausea, vo miting, or chest pain. PHYSICAL EXAMINATION: GENERAL: Patient is awake, alert. VITAL SIGNS: Afebrile, pulse 72, breathing 16, blood pressure 148/64. GENERAL APPEARANCE AND MENTAL STATUS: Fair. HEAD/NECK: Normocephalic. Atraumatic. EYES: EOMI. No deformity. EARS: Clear. No ulcers. NOSE: Intact. No lesions. MOUTH: Clear. No discharge. THROAT: Clear. No exudate. LUNGS: Clear. No crackles. CARDIAC: S1, S2. No rub. ABDOMEN: Benign. BS+. GENITALIA/RECTUM: Alicia absent. BACK/EXTREMITIES: Edema 0+ Ulcer- NEUROLOGICAL: Alert and motor intact. SKIN: Rash- Bruise- LYMPHATICS: Edema- Ulcer- LABORATORY DATA: Hemoglobin 7.4, creatinine 1.69. ASSESSMENT AND RECOMMENDATIONS: 1. Acute kidney injury, improved. 2. Hypertension, stable. 3. Anemia, stable. 4. Medications based on glomerular filtration rate are appropriate. Would recommend transfusion and 10,000 units of Epogen subcutaneous.
[2018-06-22] MEDS: Insulin Glargine 15 UNITS in Pre-Filled Syringe 1 EACH SC SCH (20:52)
[2018-06-22] MEDS: Atorvastatin Calcium 40 MG TAB PO SCH (20:53)
--- NOTE | 2018-06-22 22:24 | EKG ---
Test Reason : Blood Pressure : / mmHG Vent. Rate : 105 BPM Atrial Rate : 105 BPM P-R Int : 142 ms QRS Dur : 084 ms QT Int : 338 ms P-R-T Axes : 072 038 058 degrees QTc Int : 446 ms Sinus tachycardia Otherwise normal ECG When compared with ECG of 18-JUN-2018 15:15, (Unconfirmed) No significant change was found Confirmed by LOYD KEE (2) on 06/22/2018 10:23:38 PM Referred By: MICHELLE Confirmed By:LOYD KEE
--- NOTE | 2018-06-23 01:28 | DIS ---
DATE OF ADMISSION: 06/19/2018 DATE OF DISCHARGE: 06/22/2018 DISCHARGE DISPOSITION: Home. CONDITION AT THE TIME OF DISCHARGE: Stable and improved. DISCHARGE DIAGNOSES: 1. Diabetic ketoacidosis, resolved. 2. Severe metabolic acidosis secondary to #1, resolved. 3. Acute on chronic kidney disease secondary to #1, resolved. 4. Chest pain, likely gastritis, resolved. 5. Hyperkalemia secondary to acute renal failure, resolved. 6. Uncontrolled hypertension, resolved. 7. History of essential hypertension. 8. Uncontrolled diabetes mellitus. 9. Recent diagnosis of foot osteomyelitis on wound VAC, status post debridement and amputation of th e toes on the left side on 06/12/2018. This was done during her past hospitalization. 10. Chronic normocytic normochromic anemia likely secondary to chronic kidney disease. 11. Chronic kidney disease stage 3. 12. Dyslipidemia. 13. Diabetic gastroparesis. 14. Morbid obesity with a BMI of 67. DISCHARGE MEDICATIONS: Resume home medications as below: Augmentin 875/125 one tablet p.o. b.i.d. f or 2 weeks and ciprofloxacin 500 mg p.o. b.i.d. for 2 weeks. New prescriptions were provided to the patient for the antibiotics as she has not picked up her prescriptions provided to her during her [facility] hospital discharge on the of this month. Resume the following: Glucophage 500 mg p.o. b.i.d. , Catapres 0.2 mg p.o. b.i.d., Reglan 10 mg a.c. and at bedtime, Cozaar 100 mg daily, 70/30 of 30 uni ts b.i.d., gabapentin 600 b.i.d., Lasix 20 mg daily, Coreg 25 mg p.o. b.i.d., atorvastatin 40 mg sumeet y, aspirin 81 mg daily, amlodipine 10 mg daily, amitriptyline 25 mg p.o. b.i.d. INHOUSE CONSULTATIONS: Nephrology, Dr. Rendon and Pulmonary Medicine, Dr. Mcgill and General Surgery, Rommel Rocha. PROCEDURES DONE IN THE HOSPITAL: Multiple chest x-rays. HISTORY OF PRESENTING ILLNESS: Ms. Newton is a 43-year-old female who came in as a readmission. She was recently admitted to our facility and was discharged on 06/16/2018 after undergoing amputation o f the left 4th and 5th toe with a wound VAC for osteomyelitis. She was sent out on oral antibiotics which she never picked up. She came back complaining of dehydration, nausea, vomiting, and was found to be in diabetic ketoacidosis. She was admitted to [facility] on DKA protocol. Please see admission his tory and physical for further detail. HOSPITAL COURSE: The patient's gap closed and she was transitioned back to her subcu insulin. Fluid s were continued. She did have some hyperkalemia, renal failure, and acidosis because of the DKA and Nephrology was consulted. The patient was briefly switched back to IM because of the acidosis. S he was treated with bicarbonate drip. She complained of some chest pain for which serial cardiac enz ymes were done which were negative. A VQ scan was done which was negative for PE. She did have some uncontrolled hypertension and medications were adjusted with improved results. By the time of discharge, her lab abnormalities resolved. She was found to have significant anemia w ith a hemoglobin of 7.5 and 7.4 today. She has no overt bleeding. She was found to have low iron le vels and IV iron was supplemented. She is instructed to follow up with H&H in the next 1-2 days with either her primary care physician or with her commercial property manager, Dr. Pal. The patient was told to wa it 1 more day in the hospital to repeat her H&H, but she declined. She did not want to stay in the h ospital anymore and as she was hemodynamically stable, she was discharged. She was instructed very strictly to take her medications and take her insulin as I am not sure if she has diabetes type 1 or type 2. She is instructed about medication compliance and she verbalized und erstanding. She was seen and examined prior to discharge. Please see hospitalist progress note from the date of discharge for further detail including [id number] interaction. Total time spent in the discharge of this patient 35 minutes.
[2018-06-23 06:26] LABS: Anion Gap 13 mmol/L (10-20); BUN (Urea Nitrogen) 28 mg/dL (7.0-18.7); Calc. Creatinine Clearance 131 mL/min (70-130); Calcium 8.2 mg/dL (7.8-10.44); Carbon Dioxide 20 mmol/L (22-29); Chloride 108 mmol/L (98-107); Estimated GFR-MDRD 44; Glucose 127 mg/dL (70-105); Potassium 4.5 mmol/L (3.5-5.1); Sodium 136 mmol/L (136-145)
[2018-06-23 07:30] VITALS: BP 140/80; TEMP 98.3
[2018-06-23] MEDS: Amlodipine 10 MG TAB PO SCH (08:14)
[2018-06-23] MEDS: Pantoprazole 40 MG VIAL IVP SCH (08:14)
[2018-06-23] MEDS: cloNIDine 0.2 MG TAB PO SCH (08:15)
[2018-06-23] MEDS: Carvedilol 25 MG TAB PO SCH ×2 (08:15→16:54)
[2018-06-23] MEDS: Gabapentin 300 MG CAP PO SCH (08:15)
[2018-06-23] MEDS: Metoclopramide HCl 10 MG TAB PO SCH ×3 (08:15→16:54)
[2018-06-23] MEDS: Aspirin 81 mg Enteric Coated Tablet PO SCH (08:15)
[2018-06-23] MEDS: Saccharomyces boulardii 250 MG CAP PO SCH (08:15)
[2018-06-23] MEDS: Amitriptyline HCl 25 MG TAB PO SCH (08:16)
[2018-06-23] MEDS: Amoxicillin/Potassium Clav 875 MG TAB PO SCH (08:16)
[2018-06-23] MEDS: Enoxaparin Sodium 40 MG/0.4 ML SYRINGE SC SCH (08:16)
[2018-06-23] MEDS: Ferrous Sulfate 325 MG TAB PO SCH ×2 (08:16→16:54)
[2018-06-23] MEDS: Ciprofloxacin 500 MG TAB PO SCH (08:16)
[2018-06-23] MEDS: HumaLOG 300 UNITS/3 ML VIAL SC SCH ×3 (08:17→16:56)
--- NOTE | 2018-06-23 10:21 | PRG ---
Patient Name: DAVID PARKS Date of service: 06/23/2018 Subjective: Patient was seen and examined at bedside and overnight events noted. Patient denies any shortness of breath or chest pain or palpitation. No history of nausea or vomiting or diarrhea or fever or chills or cramps. Objective: General: This is a morbidly obese female in no apparent distress. Vital signs: Temperature 98, pulse 106, respiratory rate 18, blood pressure 140/80. HEENT: Atraumatic, normocephalic. Oral mucosa is moist. Neck: Supple. Cardiovascular: S1 S2 heard. Rate and rhythm regular. Respiratory: Clear to auscultation. Gastrointestinal: Abdomen is soft. Musculoskeletal: No tenderness. No edema. Dermatologic: No skin rash. Neurologic: Alert and awake and oriented X3. No focal neurologic deficits. Moving all the extremit ies. Psychiatric: Mood and affect normal. LABORATORY DATA: Potassium is 4.5, BUN 28, creatinine is 1.5. ASSESSMENT AND PLAN: 1. Acute kidney injury, stable labs. 2. Chronic kidney disease stage 3. 3. Anemia. 4. Hypertension. Labs are stable from a renal standpoint.
--- NOTE | 2018-06-23 23:02 | DIS ---
DATE OF ADMISSION: 06/18/2018 DATE OF DISCHARGE: 06/23/2018 Please note that the patient was discharged yesterday. Please see full discharge summary dictated ye sterday by myself for details. The patient could not be discharged yesterday as her home wound VAC w as not setup. This morning, the patient has been seen and examined and feeling very well. Her hemoglobin and hemat ocrit has down with hemoglobin of 7 and she will be given 1 unit of packed RBC. Her wound VAC setup has been completed at this time and she will be discharged after the transfusion is complete. She will be seen and followed up at the Nephrology Clinic with Dr. Pal as well as with the [facility] physician. PRIMARY CARE PHYSICIAN: Dr. Cesar Wood. She was seen and examined prior to discharge. PHYSICAL EXAMINATION: VITAL SIGNS: This morning, temperature 98.3, pulse of 107, blood pressure 140/80, saturating 96% on room air, respirations 20. GENERAL: No acute distress, awake, alert, oriented x3. CHEST: Clear to auscultation bilaterally. Rate and rhythm is regular. No edema. LABORATORY DATA: Creatinine at the time of discharge is 1.56, which is at her baseline. Hemoglobin 7 prior to transfusion with hematocrit of 22 prior to transfusion. Urine culture is negative until d ate. Total time spent in the discharge 32 minutes.
== END 2018-06-23 17:24 | disposition home health service (06) | DRG 638 ==
LOC: ERS 12:30 → EDBD 12:30 → CCU 06-19 00:16 → 2NO 06-19 18:10 → IMCU/EMU 06-20 13:05 → T4-A 06-21 20:38
PROVIDERS: ADMIT Internal Medicine; ATTEND Internal Medicine
PROC: 30233N1 Transfusion of Nonautologous Red Blood Cells into Peripheral Vein, Percutaneous Approach (ICD-10-PCS; principal; 2018-06-23)
DX: E11.10 Type 2 diabetes mellitus with ketoacidosis without coma (principal); N17.9 Acute kidney failure, unspecified; Z68.44 Body mass index [BMI] 60.0-69.9, adult; E86.0 Dehydration; E78.5 Hyperlipidemia, unspecified; E11.43 Type 2 diabetes mellitus with diabetic autonomic (poly)neuropathy; E66.01 Morbid (severe) obesity due to excess calories; I12.9 Hypertensive chronic kidney disease with stage 1 through stage 4 chronic kidney disease, or unspecified chronic kidney disease; N18.3 Chronic kidney disease, stage 3 (moderate); E11.22 Type 2 diabetes mellitus with diabetic chronic kidney disease; D63.1 Anemia in chronic kidney disease; E87.5 Hyperkalemia; K29.70 Gastritis, unspecified, without bleeding; K31.84 Gastroparesis; Z88.8 Allergy status to other drugs, medicaments and biological substances; Z79.82 Long term (current) use of aspirin; Z79.4 Long term (current) use of insulin; Z79.899 Other long term (current) drug therapy; Z89.422 Acquired absence of other left toe(s)
CPT/HCPCS: 36415; 36416; 36430; 36556; 71045; 78582; 80048; 80053; 81003; 81015; 81025; 82010; 82553; 82805; 83540; 83605; 83690; 84484; 84703; 85014; 85018; 85025; 86850; 86900; 86901; 87086; 93005; 93010; 96361; 96365; 96366; 96375; 96376; A9540; A9558; C9113; G8978-GP-CK; G8978-GP-CM; G8979-GP-CI; G8979-GP-CK; G8987-GO-CJ; G8988-GO-CJ; G8989-GO-CJ; J0131; J0360; J1650; J1815; J2270; J2405; J2765; J3010; J7042; J7050; P9016

== ENCOUNTER 2018-07-01 11:06 | Outpatient (CLI) | payer SELFPAY ==
[2018-07-01] MEDS ORDERED: Lidocaine 4% Topical Sol 50 ML BOT ONE (14:10)
[2018-07-01] MEDS ORDERED: Sodium Chloride 0.9% 15 ML NEB ONE (14:10)
== END 2018-07-01 11:07 | disposition home or self-care (01) ==
LOC: WCC 11:06
PROVIDERS: ATTEND Family Medicine
DX: T81.89XD Other complications of procedures, not elsewhere classified, subsequent encounter (principal)
CPT/HCPCS: 36416; 97605; A4218; J2001

== ENCOUNTER 2018-07-07 10:07 | Outpatient (CLI) | payer SELFPAY ==
[2018-07-10] MEDS ORDERED: Lidocaine 2% Jelly 5 ML TUBE ONE (13:58)
[2018-07-10] MEDS ORDERED: Sodium Chloride 0.9% 15 ML NEB ONE (13:58)
== END 2018-07-07 10:08 | disposition home or self-care (01) ==
LOC: WCC 10:07
PROVIDERS: ATTEND Family Medicine
DX: T81.89XD Other complications of procedures, not elsewhere classified, subsequent encounter (principal)
CPT/HCPCS: 36416; 97605

== ENCOUNTER 2018-07-10 09:30 | Outpatient (CLI) | payer SELFPAY ==
[~2018-07-10 09:30] MED LIST: Sodium Chloride 0.9% 15 ML NEB ONE
== END 2018-07-10 09:31 | disposition home or self-care (01) ==
LOC: WCC 09:30
PROVIDERS: ATTEND Family Medicine
DX: T81.89XD Other complications of procedures, not elsewhere classified, subsequent encounter (principal)
CPT/HCPCS: 97605; A4218

== ENCOUNTER 2018-07-14 13:15 | Outpatient (CLI) | payer MEDICAID, SELFPAY | END 2018-07-14 13:16 | disposition home or self-care (01) | LOC: WCC 13:15 | PROVIDERS: ATTEND Family Medicine | DX: T81.89XD Other complications of procedures, not elsewhere classified, subsequent encounter (principal) | CPT/HCPCS: 97605; A4218 ==

== ENCOUNTER 2018-07-17 09:13 | Outpatient (CLI) | payer MEDICAID ==
[2018-07-17] MEDS ORDERED: Sodium Chloride 0.9% 15 ML NEB ONE (15:00)
== END 2018-07-17 09:14 | disposition home or self-care (01) ==
LOC: WCC 09:13
PROVIDERS: ATTEND Family Medicine
DX: T81.89XD Other complications of procedures, not elsewhere classified, subsequent encounter (principal)
CPT/HCPCS: 97605; A4218

== ENCOUNTER 2018-07-21 09:07 | Outpatient (CLI) | payer MEDICAID ==
[2018-07-21] MEDS ORDERED: Sodium Chloride 0.9% 15 ML NEB ONE (14:20)
== END 2018-07-21 09:08 | disposition home or self-care (01) ==
LOC: WCC 09:07
PROVIDERS: ATTEND Family Medicine
DX: T81.89XD Other complications of procedures, not elsewhere classified, subsequent encounter (principal)
CPT/HCPCS: 97605; A4218

== ENCOUNTER 2018-07-24 10:50 | Outpatient (CLI) | payer MEDICAID ==
[2018-07-24] MEDS ORDERED: Sodium Chloride 0.9% 15 ML NEB ONE (18:00)
[2018-07-24] MEDS ORDERED: Lidocaine 4% Topical Sol 50 ML BOT ONE (18:00)
== END 2018-07-24 10:51 | disposition home or self-care (01) ==
LOC: WCC 10:50
PROVIDERS: ATTEND Family Medicine
DX: T81.89XD Other complications of procedures, not elsewhere classified, subsequent encounter (principal)
CPT/HCPCS: 97605; A4218; J2001

== ENCOUNTER 2018-07-30 05:52 | Day surgery (SDC) | payer MEDICAID ==
[2018-07-25 13:05] VITALS: BMI 56.6
[2018-07-30] MEDS ORDERED: Cefepime 2 GM in Sodium Chloride 0.9% 100 ML IVPB SCH (07:15)
[2018-07-30] MEDS ORDERED: Vancomycin HCl 1 GM in Premix Bag 1 BAG IVPB SCH (07:15)
[2018-07-30] MEDS ORDERED: Lidocaine 0.5%/Epinephrine 1:200,000 50 ml Vial ONE (07:17)
[2018-07-30] MEDS ORDERED: Midazolam HCl 2 mg/2 ml Vial ONE (07:17)
[2018-07-30] MEDS ORDERED: Fentanyl 100 MCG/2 ML VIAL ONE (07:17)
[2018-07-30 07:36] LABS: Anion Gap 15 mmol/L (10-20); BUN (Urea Nitrogen) 36 mg/dL (7.0-18.7); Calc. Creatinine Clearance 105 mL/min (70-130); Calcium 8.7 mg/dL (7.8-10.44); Carbon Dioxide 20 mmol/L (22-29); Chloride 104 mmol/L (98-107); Estimated GFR-MDRD 41; Glucose 265 mg/dL (70-105); Potassium 4.2 mmol/L (3.5-5.1); Sodium 135 mmol/L (136-145)
--- NOTE | 2018-07-30 09:08 | HP ---
HISTORY OF PRESENT ILLNESS: Crissy Newton is a 43-year-old obese white female, diabetic, who I have been seen for diabetic foot problems. On her left foot, she has had amputation of the fourth and fifth toes and metatarsals on June 12, 2018, this was healing by secondary intention. She has been seen in the Wound Care Clinic with a wound VAC. She presented with a left third toe with a medial ulceration communicating to the phalanx. I had seen her in the clinic and prescribed antibiotics for this, which she did not feel. She instead took antibiotics from the emergency room. She was seen in Wound Care Clinic and there was concern by the wound care staff that regarding her left third toe, as it had this ulceration to the bone with necrotic tissue draining purulent material. They recommended IV call, but the patient refused because of the holiday. She now presents after and I am called to review her wound. Her wound is granulating from amputation of left fourth and fifth toes and metatarsals. She has palpable pedal pulses. She has an ulceration in the web space just medial to her left third toe with the wound extending down to the bone. Plan at this time is to continue wound care and oral antibiotics, and plan next week is amputation of left third toe as an outpatient. She understands risks and benefits, and consents. She has some chronic kidney disease and episodes of acute renal failure followed by Dr. Rendon and Dr. Pal. ALLERGIES: LISINOPRIL. SOCIAL HISTORY: Tobacco, none. Alcohol, none. MEDICATIONS: 1. Furosemide. 2. Aspirin. 3. Amlodipine. 4. Amitriptyline. 5. Carvedilol. 6. Tessalon. 7. Atorvastatin. 8. Insulin 30 units subcu b.i.d. a.c. 9. Gabapentin 600 b.i.d. 10. Ferrous sulfate. 11. Losartan. 12. Cozaar. 13. Metformin. 14. Clonidine. 15. Reglan. PAST SURGICAL HISTORY: Laparoscopic cholecystectomy, two C sections, tubal ligation, arthroscopy, knee amputation of left fourth and fifth toes, chronic kidney disease. PAST MEDICAL HISTORY: Hypertension; diabetes mellitus, insulin dependent; metabolic syndrome; obesity; neuropathy; hypercholesterolemia; history of cardiac ablation; atrial fibrillation. PHYSICAL EXAMINATION: VITAL SIGNS: BMI 50. Height 5 feet and 4 inches. Weight 333 pounds. HEAD, EYES, EARS, NOSE, AND THROAT: Unremarkable. LUNGS: Clear to auscultation. CARDIAC: Regular rate rhythm without murmur or gallop. ABDOMEN: Soft, nontender, obese. EXTREMITIES: Palpable pedal pulses. Left foot, granulating wound from amputation of left fourth and fifth toes. Left third, fourth, and fifth toes are healthy except for the left third toe medial web space. There is a wound communicating to the bone. Probably, this has extended to the phalanx. LABORATORY DATA: Hemoglobin on 06/23/2018 was 7, white count 18. BUN 28, creatinine 1.56 on 06/23/2018. ASSESSMENT: 1. Chronic kidney disease. 2. Metabolic syndrome. 3. Morbid obesity. 4. Diabetes mellitus, insulin dependent. 5. Hypertension. 6. Diabetic foot ulceration involving the left third toe. PLAN: Amputation of left third toe hopefully through the proximal phalanx with probable wound healing by secondary intention. She has wound VAC on the left foot. We will plan this as an outpatient. Job ID: [id number]
--- NOTE | 2018-07-30 09:42 | OP ---
DATE OF PROCEDURE: 07/30/2018 PREOPERATIVE DIAGNOSES: Metabolic syndrome, morbid obesity, chronic kidney disease, diabetic infection left foot involving the second and third toes (previous amputation of fourth and fifth toes and metatarsals). PROCEDURES PERFORMED: Amputation of left third and fourth toes and metatarsals, secondary intention. Culture and sensitivity submitted. Wound care to place a wound VAC. ANESTHESIA: Intravenous sedation, ankle block. DESCRIPTION OF PROCEDURE: The patient was taken to the operating room, where under IV sedation and ankle block, left lower extremity was prepared with ChloraPrep and draped in routine fashion. The patient had infection extending from beneath the left third toe and during the operation, it was appreciated this extended to the left fourth toe. Amputation of left third and fourth toes were required to control this infections. Culture and sensitivity were submitted. The toes and metatarsals were dissected free, amputated, metatarsals resected proximally with rongeurs. Excellent bleeding noted, controlled with cautery. Wound was irrigated, irrigant evacuated. Connective tissue debrided sharply. Good hemostasis was achieved. Wound Care Team placed a wound VAC. Job ID: [id number]
== END 2018-07-30 11:30 | disposition home or self-care (01) ==
LOC: SDC 05:52
PROVIDERS: ATTEND Specialist
PROC: 0Y6N0Z7 Detachment at Left Foot, Complete 4th Ray, Open Approach (ICD-10-PCS; principal; 2018-07-30)
PROC: 0Y6N0Z6 Detachment at Left Foot, Complete 3rd Ray, Open Approach (ICD-10-PCS; principal; 2018-07-30)
DX: E11.69 Type 2 diabetes mellitus with other specified complication (principal); E11.621 Type 2 diabetes mellitus with foot ulcer; M86.672 Other chronic osteomyelitis, left ankle and foot; I12.9 Hypertensive chronic kidney disease with stage 1 through stage 4 chronic kidney disease, or unspecified chronic kidney disease; E11.22 Type 2 diabetes mellitus with diabetic chronic kidney disease; N18.9 Chronic kidney disease, unspecified; E11.40 Type 2 diabetes mellitus with diabetic neuropathy, unspecified; I48.91 Unspecified atrial fibrillation; E88.81 Metabolic syndrome and other insulin resistance; E78.00 Pure hypercholesterolemia, unspecified; E66.01 Morbid (severe) obesity due to excess calories; Z68.43 Body mass index [BMI] 50.0-59.9, adult; Z88.8 Allergy status to other drugs, medicaments and biological substances; Z90.49 Acquired absence of other specified parts of digestive tract; Z98.51 Tubal ligation status; Z79.84 Long term (current) use of oral hypoglycemic drugs; Z79.82 Long term (current) use of aspirin; Z79.899 Other long term (current) drug therapy
CPT/HCPCS: 36415; 80048; 87070; 87077; 87186; 87205; 88305; 88311; J0131; J0692; J2001; J2250; J3010; J3370; J7050

== ENCOUNTER 2018-08-01 10:07 | Outpatient (CLI) | payer MEDICAID ==
[2018-08-01] MEDS ORDERED: Sodium Chloride 0.9% 15 ML NEB ONE (15:00)
[2018-08-01] MEDS ORDERED: Lidocaine 4% Topical Sol 50 ML BOT ONE (15:00)
[2018-08-01] MEDS ORDERED: Lidocaine 2% PF 100 mg/5 ml Syringe ONE (15:00)
== END 2018-08-01 10:08 | disposition home or self-care (01) ==
LOC: WCC 10:07
PROVIDERS: ATTEND Family Medicine
DX: T81.89XD Other complications of procedures, not elsewhere classified, subsequent encounter (principal)
CPT/HCPCS: 97605; A4218; J2001

== ENCOUNTER 2018-08-04 11:43 | Outpatient (CLI) | payer MEDICAID ==
[~2018-08-04 11:43] MED LIST changes: +Lidocaine 4% Topical Sol 50 ML BOT ONE
== END 2018-08-04 11:44 | disposition home or self-care (01) ==
LOC: WCC 11:43
PROVIDERS: ATTEND Family Medicine
DX: T81.89XD Other complications of procedures, not elsewhere classified, subsequent encounter (principal)
CPT/HCPCS: A4218; J2001

== ENCOUNTER 2018-08-06 11:18 | Outpatient (CLI) | payer MEDICAID | END 2018-08-06 11:19 | disposition home or self-care (01) | LOC: WCC 11:18 | PROVIDERS: ATTEND Family Medicine | DX: T81.89XD Other complications of procedures, not elsewhere classified, subsequent encounter (principal) | CPT/HCPCS: 97605 ==

== ENCOUNTER 2018-08-08 11:06 | Outpatient (CLI) | payer MEDICAID ==
[2018-08-08] MEDS ORDERED: Lidocaine 4% Topical Sol 50 ML BOT ONE (13:51)
[2018-08-08] MEDS ORDERED: Sodium Chloride 0.9% 15 ML NEB ONE (13:51)
== END 2018-08-08 11:07 | disposition home or self-care (01) ==
LOC: WCC 11:06
PROVIDERS: ATTEND Family Medicine
DX: T81.89XD Other complications of procedures, not elsewhere classified, subsequent encounter (principal)
CPT/HCPCS: 97605; A4218

== ENCOUNTER 2018-08-13 11:55 | Outpatient (CLI) | payer MEDICAID ==
[2018-08-13] MEDS ORDERED: Lidocaine 4% Topical Sol 50 ML BOT ONE (13:29)
[2018-08-13] MEDS ORDERED: Sodium Chloride 0.9% 15 ML NEB ONE (13:29)
--- NOTE | 2018-08-13 20:58 | HP ---
HISTORY OF PRESENT ILLNESS: Ms. Chidi Newton is a very pleasant 43-year-old, who presents to the Wound Center for evaluation of a wound of the left foot subsequent to amputation of the second and third metatarsals on 07/30/[address] Abelardo Jung. Negative pressure therapy was initiated intraoperatively and upon discharge from [facility], the patient was referred to the Wound Center for assistance with dressing changes of the wound VAC, previously on 06/12/2018 the patient underwent amputation of the left fourth and fifth toes and metatarsals also by Dr. Jung. PAST MEDICAL HISTORY: 1. Diabetes mellitus. 2. Hypertension. 3. History of paroxysmal atrial fibrillation, status post ablation. 4. Chronic kidney disease. 5. Anemia. PAST SURGICAL HISTORY: 1. x2. 2. Left knee arthroscopy. 3. Laparoscopic cholecystectomy. 4. Bilateral tubal ligation. 5. Uterine ablation. 6. Amputation of left fourth and fifth toes and metatarsals. 7. Amputation of left second and third toes and metatarsals. MEDICATIONS: 1. Lasix. 2. Metoprolol. 3. Clonidine. 4. Losartan. 5. Juan Alberto. 6. Hydrocodone. 7. Atorvastatin. 8. Novolin 70/30. 9. Metformin. 10. Coreg. 11. Aspirin 81 mg. ALLERGIES: LISINOPRIL. SOCIAL HISTORY: Social history is negative for tobacco or EtOH use. FAMILY HISTORY: Family history significant for diabetes mellitus. The patient's mother and grandmother were both diagnosed with diabetes mellitus. Family history is negative for coronary artery disease. PHYSICAL EXAMINATION: VITAL SIGNS: Temperature 98.9, pulse 111, respirations 19, and blood pressure 146/78. Accu-Chek 174. GENERAL: A 43-year-old female sitting on chair in examination room, in no acute distress. HEENT: Normocephalic and atraumatic. NECK: No nuchal rigidity. CHEST: Clear to auscultation. CV: Regular rate and rhythm. ABDOMEN: Soft. EXTREMITIES: A large wound of the left foot is present, which measures approximately 7.7 x 2.8 cm. Granulation tissue is present within the wound margins. Necrotic and nonviable tissue present within the wound margins was debrided with an excisional full-thickness debridement with the use of a curette. No purulent drainage is associated with the wound. No erythema of the skin surrounding the wound is present. A dorsalis pedis pulse is palpable on the left. No significant edema of the left foot is present on exam today. NEURO: Grossly nonfocal. ASSESSMENT AND PLAN: 1. Left foot wound as described above. Negative pressure therapy will be continued with dressing changes of the wound VAC here in the Wound Center. No antibiotics will be prescribed today based upon the appearance of the wound. I will see Ms. Newton again in 2 weeks. 2. Diabetes mellitus. The patient's Accu-Chek in clinic today is 174. The patient has been told that for optimal wound healing her blood glucoses should remain below 150. 3. Hypertension. 4. History of paroxysmal atrial fibrillation, status post ablation. 5. Chronic kidney disease. 6. Anemia. Job ID: [id number]
== END 2018-08-13 11:56 | disposition home or self-care (01) ==
LOC: WCC 11:55
PROVIDERS: ATTEND Family Medicine
DX: S91.302D Unspecified open wound, left foot, subsequent encounter (principal)
CPT/HCPCS: 11042; 11045; 99203; A4218; G0463; J2001

== ENCOUNTER 2018-08-15 11:06 | Outpatient (CLI) | payer MEDICAID ==
[2018-08-15] MEDS ORDERED: Sodium Chloride 0.9% 15 ML NEB ONE (11:11)
== END 2018-08-15 11:07 | disposition home or self-care (01) ==
LOC: WCC 11:06
PROVIDERS: ATTEND Family Medicine
DX: T81.89XD Other complications of procedures, not elsewhere classified, subsequent encounter (principal)
CPT/HCPCS: 97605; A4218

== ENCOUNTER 2018-08-18 10:45 | Outpatient (CLI) | payer MEDICAID ==
[2018-08-18] MEDS ORDERED: Sodium Chloride 0.9% 15 ML NEB ONE (17:42)
[2018-08-18] MEDS ORDERED: Lidocaine 4% Topical Sol 50 ML BOT ONE (17:42)
== END 2018-08-18 10:46 | disposition home or self-care (01) ==
LOC: WCC 10:45
PROVIDERS: ATTEND Family Medicine
DX: T81.89XD Other complications of procedures, not elsewhere classified, subsequent encounter (principal)
CPT/HCPCS: 97605; A4218

== ENCOUNTER 2018-08-22 10:23 | Outpatient (CLI) | payer MEDICAID ==
[2018-08-22] MEDS ORDERED: Lidocaine 4% Topical Sol 50 ML BOT ONE (11:11)
[2018-08-22] MEDS ORDERED: Sodium Chloride 0.9% 15 ML NEB ONE (11:11)
== END 2018-08-22 10:24 | disposition home or self-care (01) ==
LOC: WCC 10:23
PROVIDERS: ATTEND Family Medicine
DX: T81.89XD Other complications of procedures, not elsewhere classified, subsequent encounter (principal)
CPT/HCPCS: 97605; A4218

== ENCOUNTER 2018-08-25 10:15 | Outpatient (CLI) | payer MEDICAID ==
[2018-08-25] MEDS ORDERED: Lidocaine 4% Topical Sol 50 ML BOT ONE (15:00)
[2018-08-25] MEDS ORDERED: Sodium Chloride 0.9% 15 ML NEB ONE (15:00)
== END 2018-08-25 10:16 | disposition home or self-care (01) ==
LOC: WCC 10:15
PROVIDERS: ATTEND Family Medicine
DX: T81.89XD Other complications of procedures, not elsewhere classified, subsequent encounter (principal)
CPT/HCPCS: 97605; A4218

== ENCOUNTER 2018-08-27 09:55 | Outpatient (CLI) | payer MEDICAID ==
--- NOTE | 2018-08-27 10:42 | PRG ---
DATE OF SERVICE: 08/27/2018 SUBJECTIVE: Ms. Chidi Newton is a very pleasant 43-year-old, who presents to the Wound Center for evaluation of a wound of the left foot subsequent to amputation of the second and third metatarsals on 07/30/[address] Abelardo Jung. Negative pressure therapy was initiated intraoperatively and upon discharge from [facility], the patient was referred to the Wound Center for assistance with dressing changes of the wound VAC. Previously on 06/12/2018, the patient underwent amputation of the left fourth and fifth toes and metatarsals also by Dr. Jung. PHYSICAL EXAMINATION: VITAL SIGNS: Temperature 98.5, pulse 97, respirations 21, blood pressure 177/81. Accu-Chek 186. EXTREMITIES: A large wound of the left foot is present, which measures approximately 6.1 x 2.2 cm. The dimensions of the wound at the time of the patient's visit on 08/13/2018 were approximately 7.7 x 2.8 cm. Granulation tissue is present within the wound margins. Necrotic and nonviable tissue present within the wound margins were debrided with an excisional full-thickness debridement with the use of a curette and scissors. No purulent drainage is associated with the wound. No erythema of the skin surrounding the wound is present. No maceration of the skin of the periwound is noted. A dorsalis pedis pulse is palpable on the left. No significant edema of the left foot is present on exam today. ASSESSMENT AND PLAN: 1. Left foot wound as described above. Negative pressure therapy will be continued with dressing changes of the wound VAC here in the Wound Center. I will see Ms. Newton again in 2 weeks. The patient states she has an appointment with Dr. Jung on 09/18/2018. 2. Diabetes mellitus. The patient's Accu-Chek in clinic today is 186. The patient has been reminded that for optimal wound healing her blood glucoses should remain below 150. 3. Hypertension. 4. History of paroxysmal atrial fibrillation, status post ablation. 5. Chronic kidney disease. 6. Anemia. Job ID: [id number]
[2018-08-27] MEDS ORDERED: Lidocaine 4% Topical Sol 50 ML BOT ONE (15:00)
[2018-08-27] MEDS ORDERED: Sodium Chloride 0.9% 15 ML NEB ONE (15:00)
== END 2018-08-27 09:56 | disposition home or self-care (01) ==
LOC: WCC 09:55
PROVIDERS: ATTEND Family Medicine
DX: T81.89XD Other complications of procedures, not elsewhere classified, subsequent encounter (principal); I12.9 Hypertensive chronic kidney disease with stage 1 through stage 4 chronic kidney disease, or unspecified chronic kidney disease; E11.22 Type 2 diabetes mellitus with diabetic chronic kidney disease; N18.9 Chronic kidney disease, unspecified; D63.1 Anemia in chronic kidney disease; Z86.79 Personal history of other diseases of the circulatory system

== ENCOUNTER 2018-09-01 11:09 | Outpatient (CLI) | payer MEDICAID ==
[2018-10-28] MEDS ORDERED: Sodium Chloride 0.9% 15 ML NEB ONE (15:00)
== END 2018-09-01 11:10 | disposition home or self-care (01) ==
LOC: WCC 11:09
PROVIDERS: ATTEND Family Medicine
DX: T81.89XD Other complications of procedures, not elsewhere classified, subsequent encounter (principal)
CPT/HCPCS: 97605; A4218

== ENCOUNTER 2018-09-04 11:09 | Outpatient (CLI) | payer MEDICAID ==
[~2018-09-04 11:09] MED LIST changes: -Lidocaine 4% Topical Sol 50 ML BOT ONE
== END 2018-09-04 11:10 | disposition home or self-care (01) ==
LOC: WCC 11:09
PROVIDERS: ATTEND Family Medicine
DX: T81.89XD Other complications of procedures, not elsewhere classified, subsequent encounter (principal)
CPT/HCPCS: 99211; A4218; G0463

== ENCOUNTER 2018-09-08 11:27 | Outpatient (CLI) | payer MEDICAID | END 2018-09-08 11:28 | disposition home or self-care (01) | LOC: WCC 11:27 | PROVIDERS: ATTEND Family Medicine | DX: T81.89XD Other complications of procedures, not elsewhere classified, subsequent encounter (principal) | CPT/HCPCS: 97602; A4218 ==

== ENCOUNTER 2018-09-26 13:26 | Outpatient (CLI) | payer OTHER | END 2018-09-26 13:27 | disposition home or self-care (01) | LOC: ULT 13:26 | PROVIDERS: ATTEND Psychiatry & Neurology Neurology | DX: Z02.71 Encounter for disability determination (principal) | CPT/HCPCS: 93922 ==

== ENCOUNTER 2021-11-08 16:17 | Inpatient (IN) | payer OTHER ==
[2021-11-08 16:49] LABS: #Basophils 0.1 thou/uL (0.0-0.2); #Eosinphils 0.4 thou/uL (0.0-0.7); #Lymphocytes 2.3 thou/uL (1.20-3.40); #Monocytes 1.4 thou/uL (0.11-0.59); #Neutrophils 12.9 thou/uL (1.40-6.50); %Basophils 0.3 % (0.0-1.0); %Eosinophils 2.3 % (0.0-10.0); %Lymphocytes 13.4 % (21.0-51.0); %Monocytes 8.3 % (0.0-10.0); %Neutrophils 75.7 % (42.0-75.0); Hemoglobin 9.4 g/dL (12.0-16.0); Mean Corpuscular HGB CONC 30.1 g/dL (32.0-36.0); Mean Corpuscular Hemoglobin 30.2 pg (27.0-31.0); Mean Platelet Volume 7.8 fL (7.4-10.4); Platelet Count 327 thou/uL (130-400); RBC Distribution Width 14.6 % (11.5-14.5); White Blood Cell (WBC) Count 17.1 thou/uL (4.8-10.8)
[2021-11-08 17:02] LABS: INR-International Normal Ratio 1.1; PTT 34.8 sec (22.9-36.1); Prothrombin Time 14.3 sec (12.0-14.7)
[2021-11-08] MEDS ORDERED: cefTRIAXone\\ROCEPHIN 2 GM VIAL ONE ×2 (17:05→17:46)
[2021-11-08] MEDS ORDERED: Nitroglycerin 50 MG/250 ML BOT 250 ML ONE (17:05)
[2021-11-08 17:10] LABS: Actual Bicarbonate (HCO3v) 25 mEq/L (22-28); Analyzer IN Cardio ER; Base Excess -3.6 mEq/L (-2.0 to +3.0); Calcium, Ionized (venous) 1.01 mmol/L (1.16-1.32); Chloride (VBG) 108 mmol/L (98-106); Hemoglobin (Hb) 9.3 g/dL (11.7-16.0); Potassium (VBG) 5.85 mmol/L (3.70-5.30); Sodium 138.8 mmol/L (133-146)
[2021-11-08 17:11] LABS: pH (venous) 7.18 (7.32-7.43)
[2021-11-08 17:14] LABS: ALT (SGPT) 10 U/L (8-55); AST (SGOT) 18 U/L (5-34); Albumin 3.2 g/dL (3.5-5.0); Alkaline Phosphatase 92 U/L (40-110); Anion Gap 17 mmol/L (10-20); BUN (Urea Nitrogen) 60 mg/dL (7.0-18.7); Bilirubin, Total 0.3 mg/dL (0.2-1.2); Calc. Creatinine Clearance 0 mL/min (70-130); Calcium 7.3 mg/dL (7.8-10.44); Carbon Dioxide 21 mmol/L (22-29); Chloride 108 mmol/L (98-107); Globulin 4.1 g/dL (2.4-3.5); Glucose 183 mg/dL (70-105); Potassium 6.1 mmol/L (3.5-5.1); Protein, Total 7.3 g/dL (6.0-8.3); Sodium 140 mmol/L (136-145)
[2021-11-08] MEDS ORDERED: LOKELMA 10 GM PACKET PO SCH (17:38)
[2021-11-08] MEDS ORDERED: Sodium Bicarb 50 MEQ/50 ML Abboject 8.4% SYRINGE ONE (17:46)
[2021-11-08] MEDS ORDERED: Calcium Gluc 4.6 MEQ/10 ML (100 MG/ML) ONE (17:46)
[2021-11-08] MEDS ORDERED: Insulin Regular 300 UNITS/3 ML VIAL ONE (17:46)
[2021-11-08] MEDS ORDERED: Azithromycin 250 MG TAB ONE (17:46)
[2021-11-08] MEDS ORDERED: Sodium Bicarbonate 2.5 MEQ/5 ML VIAL ONE (17:46)
[2021-11-08] MEDS ORDERED: Azithromycin 500 MG in Sodium Chloride 0.9% 250 ML 250 ML IVPB SCH (18:00)
[2021-11-08 18:19] LABS: Actual Bicarbonate (HCO3a) 21.6 mEq/L (22-28); Analyzer IN Cardio ER; Base Excess (BEa) -5.8 mEq/L (-2.0 to +3.0); CO2 Tension 52.6 mmHg (35.0-45.0); Calcium, Ionized (arterial) 1.05 mmol/L (1.12-1.30); Carboxyhemoglobin (COHb) 1.7 gm% (0.0-3.0); Hemoglobin (Hb) 9.4 g/dL (12.0-16.0); O2 Tension (PaO2), arterial 95.5 mmHg (80.0-100.0); Potassium - ABG Lab 5.68 mmol/L (3.70-5.30)
[2021-11-08 18:32] LABS: Puncture Site RRA; pH, Arterial 7.23 (7.35-7.45)
[2021-11-08] MEDS ORDERED: niCARdipine 50 MG in Sodium Chloride 0.9% 250 ML 250 ML IVPB SCH (18:45)
[2021-11-08 19:37] LABS: SARS-CoV-2 NAA Rapid Test Not Detected (NotDetected)
[2021-11-08 20:12] LABS: Anion Gap 18 mmol/L (10-20); BUN (Urea Nitrogen) 59 mg/dL (7.0-18.7); Calc. Creatinine Clearance 0 mL/min (70-130); Calcium 7.6 mg/dL (7.8-10.44); Carbon Dioxide 20 mmol/L (22-29); Chloride 108 mmol/L (98-107); Glucose 192 mg/dL (70-105); Potassium 5.8 mmol/L (3.5-5.1); Sodium 140 mmol/L (136-145)
[2021-11-08 20:18] LABS: Troponin I 0.154 ng/mL (< 0.028)
[2021-11-08] MEDS ORDERED: Ondansetron ODT 4 MG TAB PO PRN (20:34)
[2021-11-08] MEDS ORDERED: Acetaminophen 650 MG Suppository PR PRN (20:34)
[2021-11-08] MEDS ORDERED: Dextrose 50% Abboject 50 ML SYRINGE SLOW IVP PRN (20:43)
[2021-11-08] MEDS ORDERED: Dextrose 5% in Water 1,000 ML IV PRN (20:43)
[2021-11-08] MEDS ORDERED: Heparin 5,000 UNITS/ML VIAL SC SCH (21:00)
[2021-11-08] MEDS ORDERED: Heparin 25,000 units/D5W 500 ML IVPB SCH (21:15)
[2021-11-08 21:34] LABS: Bacteria/HPF None Seen HPF (None Seen); Bilirubin Negative (Negative); Blood, Urine 2+ (Negative); Clarity Clear (Clear); Glucose, Urine (Dipstick) 300 mg/dL (Negative); Ketone, Urine Trace mg/dL (Negative); Leukocyte Negative Leu/uL (Negative); Nitrite Negative (Negative); Protein, Urine (Dipstick) 300 mg/dL (Neg-Trace); RBC/HPF 0-3 HPF (0-3); Specific Gravity, Urine 1.018 (1.002-1.036); Squamous Epithelial 0-3 HPF (0-3); Urobilinogen Normal mg/dL (Less than 2); WBC/HPF 0-3 HPF (0-3)
[2021-11-08 21:37] LABS: Urine Culture Reflex No No
[2021-11-08 21:46] LABS: Hemoglobin 8.6 g/dL (12.0-16.0); Platelet Count 276 thou/uL (130-400)
[2021-11-08 21:52] LABS: Creatinine, Urine 56.92 mg/dL (47-110)
[2021-11-08] MEDS: methylPREDNISolone Sod Succ 40 MG VIAL IVP SCH (23:53)
[2021-11-09] MEDS: Heparin 10,000 UNITS/ 10 ML VIAL SLOW IVP SCH ×2 (00:17→06:35)
[2021-11-09 01:43] LABS: Troponin I 0.189 ng/mL (< 0.028)
[2021-11-09] MEDS: Furosemide 40 MG/4 ML VIAL SLOW IVP SCH ×3 (05:36→14:30)
[2021-11-09] MEDS: methylPREDNISolone Sod Succ 40 MG VIAL IVP SCH ×3 (05:36→18:19)
[2021-11-09 05:40] LABS: Anion Gap 18 mmol/L (10-20); BUN (Urea Nitrogen) 63 mg/dL (7.0-18.7); Calc. Creatinine Clearance 56 mL/min (70-130); Calcium 7.4 mg/dL (7.8-10.44); Carbon Dioxide 20 mmol/L (22-29); Chloride 108 mmol/L (98-107); Glucose 276 mg/dL (70-105); Potassium 5.5 mmol/L (3.5-5.1); Sodium 140 mmol/L (136-145)
[2021-11-09] MEDS: HumaLOG 300 UNITS/3 ML VIAL SC PRN ×4 (05:46→21:17)
[2021-11-09 05:51] LABS: Band 4 % (5-11); Lymphocytes 4 % (21-51); MDiff Complete? YES; Mean Corpuscular HGB CONC 29.6 g/dL (32.0-36.0); Mean Platelet Volume 8.1 fL (7.4-10.4); Monocytes 3 % (0-10); Neutrophil 89 % (42-75); Platelet Count 258 thou/uL (130-400); RBC Distribution Width 14.5 % (11.5-14.5); Red Blood Cell (RBC) Count 2.65 mill/uL (4.20-5.40); White Blood Cell (WBC) Count 22.6 thou/uL (4.8-10.8)
[2021-11-09] MEDS ORDERED: Metolazone 5 MG TAB PO SCH (07:30)
[2021-11-09] MEDS: Sodium Bicarbonate Tab 325 MG TAB PO SCH ×2 (09:43→20:57)
[2021-11-09] MEDS: Famotidine/PF 20 mg/2ml Vial SLOW IVP SCH (09:44)
[2021-11-09] MEDS: Heparin 5,000 UNITS/ML VIAL SC SCH ×2 (14:28→20:56)
[2021-11-09 16:25] LABS: Anion Gap 16 mmol/L (10-20); BUN (Urea Nitrogen) 62 mg/dL (7.0-18.7); BUN/Creatinine Ratio 15.16; Calc. Creatinine Clearance 55 mL/min (70-130); Calcium 7.7 mg/dL (7.8-10.44); Carbon Dioxide 23 mmol/L (22-29); Chloride 107 mmol/L (98-107); Glucose 250 mg/dL (70-105); Phosphorus 6.1 mg/dL (2.3-4.7); Potassium 4.9 mmol/L (3.5-5.1); Sodium 141 mmol/L (136-145)
[2021-11-09] MEDS: Sevelamer Carbonate 800 MG TAB PO SCH (18:19)
[2021-11-09] MEDS ORDERED: Insulin Glargine 30 UNITS/0.3 ML VIAL SC SCH (21:00)
[2021-11-09] MEDS: hydrALAZINE 20 MG/ML VIAL SLOW IVP PRN (21:15)
[2021-11-10] MEDS: methylPREDNISolone Sod Succ 40 MG VIAL IVP SCH ×2 (00:26→05:21)
[2021-11-10] MEDS: hydrALAZINE 20 MG/ML VIAL SLOW IVP PRN ×3 (03:09→13:21)
[2021-11-10 03:47] LABS: #Lymphocytes 0.9 thou/uL (1.20-3.40); #Monocytes 0.5 thou/uL (0.11-0.59); #Neutrophils 13.6 thou/uL (1.40-6.50); %Basophils 0.1 % (0.0-1.0); %Eosinophils 0.3 % (0.0-10.0); %Lymphocytes 5.7 % (21.0-51.0); %Monocytes 3.4 % (0.0-10.0); %Neutrophils 90.6 % (42.0-75.0); Hemoglobin 8.2 g/dL (12.0-16.0); Mean Corpuscular HGB CONC 30.1 g/dL (32.0-36.0); Mean Corpuscular Hemoglobin 30.4 pg (27.0-31.0); Mean Platelet Volume 8.3 fL (7.4-10.4); Platelet Count 261 thou/uL (130-400); RBC Distribution Width 14.5 % (11.5-14.5); Red Blood Cell (RBC) Count 2.69 mill/uL (4.20-5.40); White Blood Cell (WBC) Count 15.1 thou/uL (4.8-10.8)
[2021-11-10 04:06] LABS: Anion Gap 17 mmol/L (10-20); BUN (Urea Nitrogen) 63 mg/dL (7.0-18.7); Calc. Creatinine Clearance 56 mL/min (70-130); Calcium 7.3 mg/dL (7.8-10.44); Carbon Dioxide 23 mmol/L (22-29); Chloride 103 mmol/L (98-107); Glucose 335 mg/dL (70-105); Iron 28 ug/dL (50-170); Iron Binding Capacity, Total 155 mcg/dL (265-497); Potassium 4.5 mmol/L (3.5-5.1); Sodium 138 mmol/L (136-145)
[2021-11-10 04:25] LABS: Ferritin 335.71 ng/mL (10-291)
[2021-11-10 04:26] LABS: Vitamin D, 25 Hydroxy 12.1 ng/ml (> 30.0)
[2021-11-10] MEDS: Furosemide 40 MG/4 ML VIAL SLOW IVP SCH ×2 (05:22→13:21)
[2021-11-10] MEDS ORDERED: Metolazone 5 MG TAB PO SCH (07:30)
[2021-11-10] MEDS ORDERED: Epoetin (ESRD) 10,000 UNITS/ML VIAL SC SCH ×2 (07:30→17:00)
[2021-11-10] MEDS: HumaLOG 300 UNITS/3 ML VIAL SC PRN ×2 (07:57→20:54)
[2021-11-10] MEDS: Sodium Bicarbonate Tab 325 MG TAB PO SCH (07:57)
[2021-11-10] MEDS: Ergocalciferol 1.25 MG(50,000 UNITS) CAP PO SCH (07:58)
[2021-11-10] MEDS: Famotidine/PF 20 mg/2ml Vial SLOW IVP SCH (07:58)
[2021-11-10] MEDS: Heparin 5,000 UNITS/ML VIAL SC SCH ×3 (07:58→20:51)
[2021-11-10] MEDS: Sevelamer Carbonate 800 MG TAB PO SCH ×3 (07:58→16:34)
[2021-11-10] MEDS ORDERED: Iron, Sodium Ferric Gluconate 250 MG in Sodium Chloride 0.9% 250 ML 250 ML IVPB SCH (09:00)
[2021-11-10] MEDS ORDERED: NIFEdipine XL 30 MG TAB PO SCH (09:00)
[2021-11-10] MEDS: NIFEdipine XL 60 MG TAB PO SCH (10:22)
[2021-11-10] MEDS: Carvedilol 25 MG TAB PO SCH (10:23)
[2021-11-10] MEDS ORDERED: EPOETIN ALFA-EPBX (ESRD) 10,000 UNIT/ML VIAL SC SCH (12:00)
[2021-11-10] MEDS ORDERED: Insulin Glargine 30 UNITS/0.3 ML VIAL SC SCH (14:00)
[2021-11-10] MEDS ORDERED: hydrALAZINE 25 MG TAB PO SCH ×2 (15:00→17:00)
[2021-11-10] MEDS: Ondansetron PF 4 MG/2 ML Vial IVP PRN ×2 (15:09→20:57)
[2021-11-10] MEDS: hydrALAZINE 25 MG TAB PO SCH (15:11)
[2021-11-10] MEDS: Metoclopramide HCl 10 MG TAB PO SCH (20:42)
[2021-11-10] MEDS: Insulin Glargine 30 UNITS/0.3 ML VIAL SC SCH (20:51)
[2021-11-10] MEDS ORDERED: Amitriptyline HCl 25 MG TAB PO SCH (21:00)
[2021-11-10] MEDS ORDERED: Morphine 2 MG/ML VIAL SLOW IVP SCH (21:00)
[2021-11-10 23:42] LABS: Hemoglobin 8.8 g/dL (12.0-16.0); Platelet Count 295 thou/uL (130-400)
[2021-11-11] MEDS: Metoclopramide HCl 10 MG TAB PO SCH ×5 (00:34→16:52)
[2021-11-11] MEDS: cloNIDine 0.1 MG TAB PO SCH ×2 (00:52→08:32)
[2021-11-11] MEDS: Carvedilol 25 MG TAB PO SCH ×4 (00:52→23:39)
[2021-11-11] MEDS: Atorvastatin Calcium 40 MG TAB PO SCH (00:52)
[2021-11-11] MEDS: Sodium Bicarbonate Tab 325 MG TAB PO SCH ×3 (00:53→09:27)
[2021-11-11] MEDS: hydrALAZINE 25 MG TAB PO SCH ×5 (00:53→23:39)
[2021-11-11] MEDS: NIFEdipine XL 60 MG TAB PO SCH ×4 (00:53→23:38)
[2021-11-11] MEDS: Gabapentin 300 MG CAP PO SCH ×3 (00:53→09:27)
[2021-11-11] MEDS: Furosemide 40 MG/4 ML VIAL SLOW IVP SCH ×3 (05:56→13:09)
[2021-11-11] MEDS: Ondansetron PF 4 MG/2 ML Vial IVP PRN (05:56)
[2021-11-11] MEDS: Heparin 5,000 UNITS/ML VIAL SC SCH ×3 (08:28→23:30)
[2021-11-11] MEDS: Insulin Glargine 30 UNITS/0.3 ML VIAL SC SCH ×2 (08:30→23:24)
[2021-11-11] MEDS: Famotidine/PF 20 mg/2ml Vial SLOW IVP SCH (08:31)
[2021-11-11] MEDS: Ferrous Sulfate 325 MG TAB PO SCH ×3 (08:32→16:42)
[2021-11-11] MEDS: Aspirin 81 mg Enteric Coated Tablet PO SCH ×2 (08:32→09:26)
[2021-11-11] MEDS: Sevelamer Carbonate 800 MG TAB PO SCH ×2 (08:32→09:26)
[2021-11-11] MEDS ORDERED: Metoclopramide HCl 10 MG/2 ML VIAL IVP SCH (09:15)
[2021-11-11 11:48] LABS: Albumin 3.3 g/dL (3.5-5.0); Anion Gap 16 mmol/L (10-20); BUN (Urea Nitrogen) 65 mg/dL (7.0-18.7); BUN/Creatinine Ratio 15.89; Calc. Creatinine Clearance 54 mL/min (70-130); Calcium 7.6 mg/dL (7.8-10.44); Carbon Dioxide 25 mmol/L (22-29); Chloride 103 mmol/L (98-107); Glucose 286 mg/dL (70-105); Phosphorus 5.8 mg/dL (2.3-4.7); Potassium 3.4 mmol/L (3.5-5.1); Sodium 141 mmol/L (136-145)
[2021-11-11] MEDS: Metoclopramide HCl 10 MG/2 ML VIAL IVP PRN ×2 (15:13→19:56)
[2021-11-11] MEDS ORDERED: Morphine 2 MG/ML VIAL SLOW IVP SCH ×2 (19:46)
[2021-11-12] MEDS: Nystatin Powder 15 GM BOT TOP SCH ×3 (00:04→22:05)
[2021-11-12] MEDS: Metoclopramide HCl 10 MG TAB PO SCH ×5 (00:04→22:04)
[2021-11-12] MEDS: Sodium Bicarbonate Tab 325 MG TAB PO SCH ×3 (00:04→22:03)
[2021-11-12 04:11] LABS: #Basophils 0.1 thou/uL (0.0-0.2); #Eosinphils 0.3 thou/uL (0.0-0.7); #Lymphocytes 3.1 thou/uL (1.20-3.40); #Monocytes 1.8 thou/uL (0.11-0.59); #Neutrophils 12.3 thou/uL (1.40-6.50); %Basophils 0.3 % (0.0-1.0); %Eosinophils 1.6 % (0.0-10.0); %Lymphocytes 17.7 % (21.0-51.0); %Monocytes 10.1 % (0.0-10.0); %Neutrophils 70.2 % (42.0-75.0); Hemoglobin 8.6 g/dL (12.0-16.0); Mean Corpuscular HGB CONC 30.3 g/dL (32.0-36.0); Mean Corpuscular Hemoglobin 30.3 pg (27.0-31.0); Mean Platelet Volume 8.4 fL (7.4-10.4); Platelet Count 264 thou/uL (130-400); RBC Distribution Width 14.7 % (11.5-14.5); Red Blood Cell (RBC) Count 2.84 mill/uL (4.20-5.40); White Blood Cell (WBC) Count 17.6 thou/uL (4.8-10.8)
[2021-11-12 04:36] LABS: ALT (SGPT) 13 U/L (8-55); AST (SGOT) 17 U/L (5-34); Alkaline Phosphatase 67 U/L (40-110); Anion Gap 18 mmol/L (10-20); BUN (Urea Nitrogen) 68 mg/dL (7.0-18.7); Bilirubin, Total 0.2 mg/dL (0.2-1.2); Calc. Creatinine Clearance 48 mL/min (70-130); Calcium 7.4 mg/dL (7.8-10.44); Carbon Dioxide 22 mmol/L (22-29); Chloride 104 mmol/L (98-107); Globulin 3.8 g/dL (2.4-3.5); Glucose 221 mg/dL (70-105); Lipase 20 U/L (8-78); Magnesium 1.8 mg/dL (1.6-2.6); Potassium 3.7 mmol/L (3.5-5.1); Protein, Total 6.8 g/dL (6.0-8.3); Sodium 140 mmol/L (136-145)
[2021-11-12] MEDS: Furosemide 40 MG/4 ML VIAL SLOW IVP SCH (05:44)
[2021-11-12] MEDS: Insulin Glargine 30 UNITS/0.3 ML VIAL SC SCH ×2 (09:10→22:06)
[2021-11-12] MEDS: NIFEdipine XL 60 MG TAB PO SCH ×2 (09:11→22:03)
[2021-11-12] MEDS: Aspirin 81 mg Enteric Coated Tablet PO SCH (09:12)
[2021-11-12] MEDS: hydrALAZINE 25 MG TAB PO SCH ×3 (09:12→22:04)
[2021-11-12] MEDS: Carvedilol 25 MG TAB PO SCH ×2 (09:12→22:04)
[2021-11-12] MEDS: Ferrous Sulfate 325 MG TAB PO SCH ×2 (09:13→16:05)
[2021-11-12] MEDS: Famotidine/PF 20 mg/2ml Vial SLOW IVP SCH (09:13)
[2021-11-12] MEDS: Heparin 5,000 UNITS/ML VIAL SC SCH ×3 (09:13→22:11)
[2021-11-12] MEDS: Empagliflozin 10 MG TAB PO SCH (09:13)
[2021-11-12] MEDS: HumaLOG 300 UNITS/3 ML VIAL SC PRN ×3 (12:05→22:08)
[2021-11-13] MEDS: HumaLOG 300 UNITS/3 ML VIAL SC PRN ×2 (06:12→11:51)
[2021-11-13 08:15] LABS: #Basophils 0.1 thou/uL (0.0-0.2); #Eosinphils 0.8 thou/uL (0.0-0.7); #Lymphocytes 3.7 thou/uL (1.20-3.40); #Monocytes 1.5 thou/uL (0.11-0.59); #Neutrophils 8.3 thou/uL (1.40-6.50); %Basophils 0.7 % (0.0-1.0); %Eosinophils 5.4 % (0.0-10.0); %Lymphocytes 25.6 % (21.0-51.0); %Monocytes 10.7 % (0.0-10.0); %Neutrophils 57.6 % (42.0-75.0); Hemoglobin 8.1 g/dL (12.0-16.0); Mean Corpuscular HGB CONC 29.9 g/dL (32.0-36.0); Mean Corpuscular Hemoglobin 29.7 pg (27.0-31.0); Mean Corpuscular Volume 99.3 fL (78.0-98.0); Mean Platelet Volume 8.2 fL (7.4-10.4); Platelet Count 262 thou/uL (130-400); RBC Distribution Width 14.6 % (11.5-14.5); Red Blood Cell (RBC) Count 2.72 mill/uL (4.20-5.40); White Blood Cell (WBC) Count 14.4 thou/uL (4.8-10.8)
[2021-11-13 08:27] LABS: Albumin 2.8 g/dL (3.5-5.0); Anion Gap 15 mmol/L (10-20); BUN (Urea Nitrogen) 75 mg/dL (7.0-18.7); BUN/Creatinine Ratio 13.47; Calc. Creatinine Clearance 40 mL/min (70-130); Calcium 7.1 mg/dL (7.8-10.44); Carbon Dioxide 26 mmol/L (22-29); Chloride 102 mmol/L (98-107); Glucose 132 mg/dL (70-105); Phosphorus 6.1 mg/dL (2.3-4.7); Potassium 4.1 mmol/L (3.5-5.1); Sodium 139 mmol/L (136-145)
[2021-11-13] MEDS: Heparin 5,000 UNITS/ML VIAL SC SCH ×3 (09:01→21:44)
[2021-11-13] MEDS: Insulin Glargine 30 UNITS/0.3 ML VIAL SC SCH ×2 (09:01→21:45)
[2021-11-13] MEDS: Famotidine/PF 20 mg/2ml Vial SLOW IVP SCH (09:01)
[2021-11-13] MEDS: Empagliflozin 10 MG TAB PO SCH (09:02)
[2021-11-13] MEDS: Metoclopramide HCl 10 MG TAB PO SCH ×4 (09:03→21:45)
[2021-11-13] MEDS: NIFEdipine XL 60 MG TAB PO SCH ×2 (09:03→21:43)
[2021-11-13] MEDS: Sodium Bicarbonate Tab 325 MG TAB PO SCH ×2 (09:03→21:44)
[2021-11-13] MEDS: Aspirin 81 mg Enteric Coated Tablet PO SCH (09:03)
[2021-11-13] MEDS: Carvedilol 25 MG TAB PO SCH ×2 (09:03→21:44)
[2021-11-13] MEDS: Ferrous Sulfate 325 MG TAB PO SCH ×2 (09:03→15:55)
[2021-11-13] MEDS: Nystatin Powder 15 GM BOT TOP SCH ×2 (09:03→21:46)
[2021-11-13 09:26] LABS: MDiff Complete? YES
[2021-11-13 09:27] LABS: Eosinophils 7 % (0-10); Hypochromia SLIGHT = 6-15 cells (100X) (0-5/hpf); Lymphocytes 29 % (21-51); Monocytes 9 % (0-10); Neutrophil 55 % (42-75); Platelet Morphology Comment Appears Adequate; Polychromasia SLIGHT = 2-3 cells (100X) (0-2/hpf)
[2021-11-13] MEDS ORDERED: Iron, Sodium Ferric Gluconate 250 MG in Sodium Chloride 0.9% 250 ML 250 ML IVPB SCH (13:00)
[2021-11-14 08:09] LABS: Albumin 2.9 g/dL (3.5-5.0); Anion Gap 18 mmol/L (10-20); BUN (Urea Nitrogen) 74 mg/dL (7.0-18.7); BUN/Creatinine Ratio 13.14; Calc. Creatinine Clearance 39 mL/min (70-130); Calcium 7.1 mg/dL (7.8-10.44); Carbon Dioxide 25 mmol/L (22-29); Chloride 101 mmol/L (98-107); Glucose 86 mg/dL (70-105); Phosphorus 6.1 mg/dL (2.3-4.7); Potassium 4.5 mmol/L (3.5-5.1); Sodium 139 mmol/L (136-145)
[2021-11-14] MEDS: Ferrous Sulfate 325 MG TAB PO SCH ×2 (08:55→17:10)
[2021-11-14] MEDS: Metoclopramide HCl 10 MG TAB PO SCH ×4 (08:55→20:40)
[2021-11-14] MEDS: Aspirin 81 mg Enteric Coated Tablet PO SCH (08:56)
[2021-11-14] MEDS: NIFEdipine XL 60 MG TAB PO SCH ×2 (08:56→20:39)
[2021-11-14] MEDS: Sodium Bicarbonate Tab 325 MG TAB PO SCH ×2 (08:56→20:39)
[2021-11-14] MEDS: Carvedilol 25 MG TAB PO SCH ×2 (08:56→20:39)
[2021-11-14] MEDS: Heparin 5,000 UNITS/ML VIAL SC SCH ×3 (08:57→20:41)
[2021-11-14] MEDS: Insulin Glargine 30 UNITS/0.3 ML VIAL SC SCH ×2 (08:57→20:40)
[2021-11-14] MEDS: Famotidine/PF 20 mg/2ml Vial SLOW IVP SCH (08:57)
[2021-11-14] MEDS: Nystatin Powder 15 GM BOT TOP SCH ×2 (09:00→20:43)
[2021-11-14] MEDS: Calcium Carbonate 500 MG ChewTAB PO SCH ×3 (11:42→23:46)
[2021-11-15 04:13] LABS: Albumin 2.7 g/dL (3.5-5.0); Anion Gap 18 mmol/L (10-20); BUN (Urea Nitrogen) 77 mg/dL (7.0-18.7); BUN/Creatinine Ratio 12.88; Calc. Creatinine Clearance 37 mL/min (70-130); Calcium 6.9 mg/dL (7.8-10.44); Carbon Dioxide 24 mmol/L (22-29); Chloride 103 mmol/L (98-107); Glucose 87 mg/dL (70-105); Phosphorus 6.3 mg/dL (2.3-4.7); Potassium 4.5 mmol/L (3.5-5.1); Sodium 140 mmol/L (136-145)
[2021-11-15 04:38] LABS: Hemoglobin 7.9 g/dL (12.0-16.0); Mean Corpuscular HGB CONC 30.9 g/dL (32.0-36.0); Mean Corpuscular Hemoglobin 30.2 pg (27.0-31.0); Mean Corpuscular Volume 97.9 fL (78.0-98.0); Mean Platelet Volume 8.7 fL (7.4-10.4); Platelet Count 264 thou/uL (130-400); Red Blood Cell (RBC) Count 2.62 mill/uL (4.20-5.40)
[2021-11-15 04:39] LABS: Anisocytosis SLIGHT = 6-15 cells (100X) (0-5/hpf); Band 2 % (5-11); Eosinophils 10 % (0-10); Hypochromia MODERATE=16-30 cells (100X) (0-5/hpf); Large Platelets SLIGHT; Lymphocytes 19 % (21-51); MDiff Complete? YES; Metamyelocyte 1 % (0-0); Monocytes 6 % (0-10); Myelocyte 1 % (0-0); Neutrophil 61 % (42-75); Platelet Morphology Comment Appears Adequate; Polychromasia SLIGHT = 2-3 cells (100X) (0-2/hpf)
[2021-11-15] MEDS: Calcium Carbonate 500 MG ChewTAB PO SCH ×3 (05:41→17:43)
[2021-11-15] MEDS: Sodium Bicarbonate Tab 325 MG TAB PO SCH ×2 (08:51→22:17)
[2021-11-15] MEDS: NIFEdipine XL 60 MG TAB PO SCH ×2 (08:51→21:46)
[2021-11-15] MEDS: Aspirin 81 mg Enteric Coated Tablet PO SCH (08:51)
[2021-11-15] MEDS: Famotidine 20 MG TAB PO SCH (08:51)
[2021-11-15] MEDS: Ferrous Sulfate 325 MG TAB PO SCH ×2 (08:53→17:42)
[2021-11-15] MEDS: Metoclopramide HCl 10 MG TAB PO SCH ×4 (08:53→21:46)
[2021-11-15] MEDS: Heparin 5,000 UNITS/ML VIAL SC SCH ×3 (08:53→21:52)
[2021-11-15] MEDS: Carvedilol 25 MG TAB PO SCH ×2 (08:53→21:47)
[2021-11-15] MEDS: Nystatin Powder 15 GM BOT TOP SCH ×2 (08:54→22:10)
[2021-11-15] MEDS: Insulin Glargine 30 UNITS/0.3 ML VIAL SC SCH ×2 (08:54→21:49)
[2021-11-15] MEDS ORDERED: ceFAZolin 2 GM/Dextrose 50 ML 2 GM in Premix Bag 1 BAG IVPB SCH (10:30)
[2021-11-15] MEDS ORDERED: ceFAZolin (BATCH) 2 GM in Premix Bag 1 BAG IVPB SCH (10:30)
[2021-11-15 12:05] LABS: SARS-CoV-2 PCR by NAA Not Detected (NotDetected)
[2021-11-15] MEDS: hydrALAZINE 25 MG TAB PO SCH ×2 (15:55→21:45)
[2021-11-15] MEDS: Acetaminophen 325 MG TAB PO PRN (21:43)
[2021-11-16] MEDS: Calcium Carbonate 500 MG ChewTAB PO SCH ×4 (01:38→17:58)
[2021-11-16 04:46] LABS: Albumin 2.8 g/dL (3.5-5.0); Anion Gap 15 mmol/L (10-20); BUN (Urea Nitrogen) 78 mg/dL (7.0-18.7); BUN/Creatinine Ratio 13.22; Calc. Creatinine Clearance 37 mL/min (70-130); Calcium 7.4 mg/dL (7.8-10.44); Carbon Dioxide 26 mmol/L (22-29); Chloride 103 mmol/L (98-107); Glucose 117 mg/dL (70-105); Phosphorus 5.7 mg/dL (2.3-4.7); Potassium 4.2 mmol/L (3.5-5.1); Sodium 140 mmol/L (136-145)
[2021-11-16] MEDS: Sodium Bicarbonate Tab 325 MG TAB PO SCH ×2 (05:38→20:14)
[2021-11-16] MEDS: Aspirin 81 mg Enteric Coated Tablet PO SCH (05:38)
[2021-11-16] MEDS: Metoclopramide HCl 10 MG TAB PO SCH ×4 (05:38→20:16)
[2021-11-16] MEDS: Ferrous Sulfate 325 MG TAB PO SCH ×2 (05:38→17:57)
[2021-11-16] MEDS: hydrALAZINE 25 MG TAB PO SCH ×3 (05:40→20:16)
[2021-11-16] MEDS: Carvedilol 25 MG TAB PO SCH ×2 (05:40→20:17)
[2021-11-16] MEDS: NIFEdipine XL 60 MG TAB PO SCH ×2 (05:40→20:15)
[2021-11-16] MEDS ORDERED: Lidocaine 1% w/Epinephrine 1:100K 20 ML VIAL ONE (06:31)
[2021-11-16] MEDS ORDERED: Heparin 10,000 UNITS/ 10 ML VIAL ONE ×2 (06:31→09:06)
[2021-11-16] MEDS ORDERED: Bupivacaine PF 0.5% 30 ML VIAL ONE (06:31)
[2021-11-16] MEDS ORDERED: Fentanyl 100 MCG/2 ML VIAL ONE (06:40)
[2021-11-16] MEDS ORDERED: Ondansetron HCl/PF 4 MG/2 ML Vial IVP PRN (07:04)
[2021-11-16] MEDS ORDERED: Ketamine 50 MG/ML (10ML VIAL) ONE (07:09)
[2021-11-16] MEDS ORDERED: Midazolam HCl 2 mg/2 ml Vial ONE (07:10)
[2021-11-16] MEDS ORDERED: PROPOFOL 20 ML ONE (07:25)
[2021-11-16] MEDS ORDERED: Lidocaine 1% PF 5 ML VIAL ONE (07:51)
[2021-11-16] MEDS: Heparin 5,000 UNITS/ML VIAL SC SCH ×3 (10:07→20:18)
[2021-11-16] MEDS: Insulin Glargine 30 UNITS/0.3 ML VIAL SC SCH ×2 (10:08→20:17)
[2021-11-16] MEDS: Nystatin Powder 15 GM BOT TOP SCH ×2 (10:09→21:41)
[2021-11-16 12:39] LABS: HBSAB Concentration Less than 8.00 mIU/mL; HBSAg Index 0.17 S/CO (0-0.99); Hep B Core Total Ab Non-Reactive (NonReactive); Hep B Core Total Index 0.07 S/CO (0-0.79); Hep B Surf AB Non-Reactive (NonReactive); Hep B Surf Ag Non-Reactive S/CO (NonReactive); Hep C IgG Ab Non-Reactive (NonReactive); Hep C Index 0.07 S/CO (0-0.79)
[2021-11-16] MEDS ORDERED: traMADol HCl 50 MG TAB PO SCH (12:45)
[2021-11-16] MEDS: Famotidine 20 MG TAB PO SCH (13:12)
[2021-11-16] MEDS: Epoetin (ESRD) 10,000 UNITS/ML VIAL SC SCH (13:14)
[2021-11-16] MEDS: Acetaminophen 325 MG TAB PO PRN (13:15)
[2021-11-16 13:41] VITALS: BMI 74.0
[2021-11-16] MEDS ORDERED: ceFAZolin 2 GM/Dextrose 50 ML 2 GM in Premix Bag 1 BAG IVPB SCH (14:30)
[2021-11-16] MEDS ORDERED: Tuberculin PPD 0.1 ML VIAL I-DERMAL SCH (16:00)
[2021-11-16] MEDS: HumaLOG 300 UNITS/3 ML VIAL SC PRN (18:01)
[2021-11-16] MEDS: Gabapentin 300 MG CAP PO SCH (20:15)
[2021-11-16] MEDS: Polyethylene Glycol 3350 17 GM Packet PO SCH (20:15)
[2021-11-16] MEDS: Senokot S 8.6-50 MG TAB PO SCH (20:15)
[2021-11-16] MEDS: Atorvastatin Calcium 40 MG TAB PO SCH (20:16)
[2021-11-16] MEDS: Bisacodyl 10 MG SUPP PR SCH (20:17)
[2021-11-17] MEDS: Calcium Carbonate 500 MG ChewTAB PO SCH ×5 (01:21→23:46)
[2021-11-17 04:18] LABS: #Eosinphils 0.6 thou/uL (0.0-0.7); #Lymphocytes 2.8 thou/uL (1.20-3.40); #Monocytes 1.2 thou/uL (0.11-0.59); #Neutrophils 6.9 thou/uL (1.40-6.50); %Basophils 0.2 % (0.0-1.0); %Eosinophils 5.6 % (0.0-10.0); %Lymphocytes 24.2 % (21.0-51.0); %Monocytes 10.1 % (0.0-10.0); %Neutrophils 59.8 % (42.0-75.0); Hemoglobin 8.1 g/dL (12.0-16.0); Mean Corpuscular HGB CONC 30.6 g/dL (32.0-36.0); Mean Corpuscular Hemoglobin 30.7 pg (27.0-31.0); Mean Platelet Volume 8.3 fL (7.4-10.4); Platelet Count 272 thou/uL (130-400); RBC Distribution Width 15.8 % (11.5-14.5); Red Blood Cell (RBC) Count 2.63 mill/uL (4.20-5.40); White Blood Cell (WBC) Count 11.6 thou/uL (4.8-10.8)
[2021-11-17 04:37] LABS: Anion Gap 13 mmol/L (10-20); BUN (Urea Nitrogen) 57 mg/dL (7.0-18.7); Calc. Creatinine Clearance 46 mL/min (70-130); Calcium 7.5 mg/dL (7.8-10.44); Carbon Dioxide 30 mmol/L (22-29); Chloride 104 mmol/L (98-107); Glucose 139 mg/dL (70-105); Potassium 4.4 mmol/L (3.5-5.1); Sodium 143 mmol/L (136-145)
[2021-11-17] MEDS ORDERED: Heparin 10,000 UNITS/ 10 ML VIAL ONE (09:08)
[2021-11-17] MEDS: hydrALAZINE 25 MG TAB PO SCH ×3 (09:59→20:50)
[2021-11-17] MEDS: Aspirin 81 mg Enteric Coated Tablet PO SCH (10:00)
[2021-11-17] MEDS: Ferrous Sulfate 325 MG TAB PO SCH ×2 (10:00→18:47)
[2021-11-17] MEDS: Famotidine 20 MG TAB PO SCH (10:00)
[2021-11-17] MEDS: Sodium Bicarbonate Tab 325 MG TAB PO SCH ×2 (10:00→20:51)
[2021-11-17] MEDS: NIFEdipine XL 60 MG TAB PO SCH ×2 (10:00→20:50)
[2021-11-17] MEDS: Gabapentin 300 MG CAP PO SCH ×2 (10:01→20:51)
[2021-11-17] MEDS: Metoclopramide HCl 10 MG TAB PO SCH ×4 (10:01→20:52)
[2021-11-17] MEDS: Nystatin Powder 15 GM BOT TOP SCH ×2 (10:02→20:53)
[2021-11-17] MEDS: Carvedilol 25 MG TAB PO SCH ×2 (10:02→20:52)
[2021-11-17] MEDS: Senokot S 8.6-50 MG TAB PO SCH ×2 (10:02→20:50)
[2021-11-17] MEDS: Heparin 5,000 UNITS/ML VIAL SC SCH ×3 (10:03→20:51)
[2021-11-17] MEDS: Ergocalciferol 1.25 MG(50,000 UNITS) CAP PO SCH (10:23)
[2021-11-17] MEDS: Insulin Glargine 30 UNITS/0.3 ML VIAL SC SCH ×2 (10:23→20:57)
[2021-11-17] MEDS: Atorvastatin Calcium 40 MG TAB PO SCH (20:52)
[2021-11-17] MEDS: Bisacodyl 10 MG SUPP PR SCH (20:53)
[2021-11-17] MEDS: Polyethylene Glycol 3350 17 GM Packet PO SCH (20:53)
[2021-11-18] MEDS: Calcium Carbonate 500 MG ChewTAB PO SCH ×5 (05:52→22:40)
[2021-11-18] MEDS: Gabapentin 300 MG CAP PO SCH ×2 (08:42→21:08)
[2021-11-18] MEDS: Famotidine 20 MG TAB PO SCH (08:43)
[2021-11-18] MEDS: Aspirin 81 mg Enteric Coated Tablet PO SCH (08:43)
[2021-11-18] MEDS: Metoclopramide HCl 10 MG TAB PO SCH ×5 (08:55→21:06)
[2021-11-18] MEDS: Insulin Glargine 30 UNITS/0.3 ML VIAL SC SCH ×2 (08:56→21:08)
[2021-11-18] MEDS: Sodium Bicarbonate Tab 325 MG TAB PO SCH (08:57)
[2021-11-18] MEDS: Ferrous Sulfate 325 MG TAB PO SCH ×2 (09:00→16:18)
[2021-11-18] MEDS: Carvedilol 25 MG TAB PO SCH ×2 (09:00→21:08)
[2021-11-18] MEDS: NIFEdipine XL 60 MG TAB PO SCH ×2 (09:05→21:07)
[2021-11-18] MEDS: hydrALAZINE 25 MG TAB PO SCH ×3 (09:05→21:07)
[2021-11-18] MEDS ORDERED: Heparin 10,000 UNITS/ 10 ML VIAL ONE (09:09)
[2021-11-18] MEDS: Heparin 5,000 UNITS/ML VIAL SC SCH ×3 (09:19→21:06)
[2021-11-18] MEDS: Nystatin Powder 15 GM BOT TOP SCH ×2 (09:23→21:34)
[2021-11-18] MEDS ORDERED: READ PPD TEST SITE PO SCH (16:00)
[2021-11-18] MEDS: Senokot S 8.6-50 MG TAB PO SCH ×2 (16:17→21:06)
[2021-11-18] MEDS: Torsemide 100 MG TAB PO SCH (16:23)
[2021-11-18] MEDS: HumaLOG 300 UNITS/3 ML VIAL SC PRN (16:28)
[2021-11-18] MEDS: Epoetin (ESRD) 10,000 UNITS/ML VIAL SC SCH (16:35)
[2021-11-18] MEDS: Atorvastatin Calcium 40 MG TAB PO SCH (21:07)
[2021-11-18] MEDS: Bisacodyl 10 MG SUPP PR SCH (21:33)
[2021-11-18] MEDS: Polyethylene Glycol 3350 17 GM Packet PO SCH (21:34)
[2021-11-19] MEDS: Calcium Carbonate 500 MG ChewTAB PO SCH ×4 (04:50→23:15)
[2021-11-19] MEDS: Metoclopramide HCl 10 MG TAB PO SCH ×4 (06:41→20:17)
[2021-11-19] MEDS: NIFEdipine XL 60 MG TAB PO SCH (09:39)
[2021-11-19] MEDS: Famotidine 20 MG TAB PO SCH (09:39)
[2021-11-19] MEDS: hydrALAZINE 25 MG TAB PO SCH ×2 (09:39→15:46)
[2021-11-19] MEDS: Aspirin 81 mg Enteric Coated Tablet PO SCH (09:40)
[2021-11-19] MEDS: Gabapentin 300 MG CAP PO SCH ×2 (09:40→20:18)
[2021-11-19] MEDS: Senokot S 8.6-50 MG TAB PO SCH ×2 (09:40→20:17)
[2021-11-19] MEDS: Carvedilol 25 MG TAB PO SCH ×2 (09:40→17:03)
[2021-11-19] MEDS: Ferrous Sulfate 325 MG TAB PO SCH ×2 (09:41→17:01)
[2021-11-19] MEDS: Insulin Glargine 30 UNITS/0.3 ML VIAL SC SCH ×2 (09:41→20:19)
[2021-11-19] MEDS: Heparin 5,000 UNITS/ML VIAL SC SCH ×4 (09:41→20:17)
[2021-11-19] MEDS: Torsemide 100 MG TAB PO SCH (09:41)
[2021-11-19] MEDS: Nystatin Powder 15 GM BOT TOP SCH ×2 (10:45→20:16)
[2021-11-19] MEDS: HumaLOG 300 UNITS/3 ML VIAL SC PRN (17:04)
[2021-11-19] MEDS: Polyethylene Glycol 3350 17 GM Packet PO SCH (20:16)
[2021-11-19] MEDS: Acetaminophen 325 MG TAB PO PRN (20:18)
[2021-11-19] MEDS: Atorvastatin Calcium 40 MG TAB PO SCH (20:19)
[2021-11-19] MEDS: Bisacodyl 10 MG SUPP PR SCH (20:20)
[2021-11-20] MEDS: Calcium Carbonate 500 MG ChewTAB PO SCH ×4 (05:41→22:58)
[2021-11-20] MEDS ORDERED: Fentanyl 100 MCG/2 ML VIAL ONE (06:40)
[2021-11-20] MEDS ORDERED: Famotidine/PF 20 mg/2ml Vial ONE (06:40)
[2021-11-20] MEDS ORDERED: Lidocaine 1% w/Epinephrine 1:100K 20 ML VIAL ONE (06:43)
[2021-11-20] MEDS ORDERED: Bupivacaine PF 0.5% 30 ML VIAL ONE (06:43)
[2021-11-20] MEDS ORDERED: Heparin 5,000 UNITS/ML VIAL ONE (06:43)
[2021-11-20] MEDS ORDERED: ceFAZolin (BATCH) 2 GM/100 ML BAG ONE (07:15)
[2021-11-20] MEDS ORDERED: Phenylephrine 10 MG/ML VIAL ONE (07:20)
[2021-11-20 07:32] LABS: Anion Gap 14 mmol/L (10-20); BUN (Urea Nitrogen) 30 mg/dL (7.0-18.7); Calc. Creatinine Clearance 56 mL/min (70-130); Calcium 8.4 mg/dL (7.8-10.44); Carbon Dioxide 28 mmol/L (22-29); Chloride 101 mmol/L (98-107); Glucose 152 mg/dL (70-105); Potassium 4.3 mmol/L (3.5-5.1); Sodium 139 mmol/L (136-145)
[2021-11-20 07:33] LABS: Albumin 2.9 g/dL (3.5-5.0); Anion Gap 15 mmol/L (10-20); BUN (Urea Nitrogen) 31 mg/dL (7.0-18.7); BUN/Creatinine Ratio 7.87; Calc. Creatinine Clearance 55 mL/min (70-130); Calcium 8.4 mg/dL (7.8-10.44); Carbon Dioxide 28 mmol/L (22-29); Chloride 101 mmol/L (98-107); Glucose 154 mg/dL (70-105); Phosphorus 4.3 mg/dL (2.3-4.7); Potassium 4.3 mmol/L (3.5-5.1); Sodium 140 mmol/L (136-145)
[2021-11-20] MEDS ORDERED: Ondansetron PF 4 MG/2 ML Vial ONE (07:56)
[2021-11-20] MEDS ORDERED: Glycopyrrolate 0.2 MG/ML 5 ML SYRINGE ONE (07:56)
[2021-11-20] MEDS ORDERED: Rocuronium Bromide 10 MG/ML (10ML VIAL) ONE (07:56)
[2021-11-20] MEDS ORDERED: Lidocaine 1% PF 5 ML VIAL ONE ×3 (07:56)
[2021-11-20] MEDS ORDERED: PROPOFOL 200 MG/20 ML VIAL ONE (07:56)
[2021-11-20] MEDS ORDERED: Protamine Sulfate 50 MG/5 ML VIAL ONE (09:05)
[2021-11-20] MEDS ORDERED: Promethazine HCl 25 MG/ML VIAL IM PRN (09:08)
[2021-11-20] MEDS ORDERED: Promethazine HCl 25 MG/ML VIAL IVPB PRN (09:08)
[2021-11-20] MEDS ORDERED: PACU-Morphine 4MG/ML VIAL SLOW IVP PRN (09:08)
[2021-11-20] MEDS ORDERED: Acetaminophen 500 MG TAB PO SCH (10:00)
[2021-11-20] MEDS: Metoclopramide HCl 10 MG TAB PO SCH ×4 (11:28→21:13)
[2021-11-20] MEDS: Ferrous Sulfate 325 MG TAB PO SCH ×2 (11:28→17:01)
[2021-11-20] MEDS: Famotidine 20 MG TAB PO SCH (11:32)
[2021-11-20] MEDS: Gabapentin 300 MG CAP PO SCH ×2 (11:32→21:12)
[2021-11-20] MEDS: Aspirin 81 mg Enteric Coated Tablet PO SCH (11:32)
[2021-11-20] MEDS: Heparin 5,000 UNITS/ML VIAL SC SCH ×3 (11:32→21:16)
[2021-11-20] MEDS: Carvedilol 25 MG TAB PO SCH ×2 (11:33→17:01)
[2021-11-20] MEDS: NIFEdipine XL 60 MG TAB PO SCH (11:33)
[2021-11-20] MEDS: Insulin Glargine 30 UNITS/0.3 ML VIAL SC SCH ×2 (11:33→21:13)
[2021-11-20] MEDS: Nystatin Powder 15 GM BOT TOP SCH ×2 (11:34→21:14)
[2021-11-20] MEDS: Senokot S 8.6-50 MG TAB PO SCH ×2 (11:34→21:59)
[2021-11-20] MEDS: Torsemide 100 MG TAB PO SCH (11:34)
[2021-11-20 13:17] LABS: Hemoglobin 7.6 g/dL (12.0-16.0); Mean Corpuscular HGB CONC 28.4 g/dL (32.0-36.0); Mean Corpuscular Hemoglobin 29.5 pg (27.0-31.0); Mean Platelet Volume 8.7 fL (7.4-10.4); Platelet Count 163 thou/uL (130-400); RBC Distribution Width 15.4 % (11.5-14.5); Red Blood Cell (RBC) Count 2.58 mill/uL (4.20-5.40); White Blood Cell (WBC) Count 15.1 thou/uL (4.8-10.8)
[2021-11-20] MEDS ORDERED: Heparin 10,000 UNITS/ 10 ML VIAL ONE (13:48)
[2021-11-20] MEDS ORDERED: Acetaminophen 500 MG TAB PO PRN (16:00)
[2021-11-20] MEDS: traMADol HCl 50 MG TAB PO PRN ×2 (17:01→21:12)
[2021-11-20] MEDS: Atorvastatin Calcium 40 MG TAB PO SCH (21:13)
[2021-11-20] MEDS: Bisacodyl 10 MG SUPP PR SCH (21:13)
[2021-11-20] MEDS: Polyethylene Glycol 3350 17 GM Packet PO SCH (21:14)
[2021-11-21] MEDS: Calcium Carbonate 500 MG ChewTAB PO SCH ×2 (05:37→11:48)
[2021-11-21] MEDS: traMADol HCl 50 MG TAB PO PRN ×2 (05:51→11:30)
[2021-11-21] MEDS: Metoclopramide HCl 10 MG TAB PO SCH ×2 (09:05→11:29)
[2021-11-21] MEDS: NIFEdipine XL 60 MG TAB PO SCH (09:05)
[2021-11-21] MEDS: Gabapentin 300 MG CAP PO SCH (09:05)
[2021-11-21] MEDS: Ferrous Sulfate 325 MG TAB PO SCH (09:05)
[2021-11-21] MEDS: Aspirin 81 mg Enteric Coated Tablet PO SCH (09:05)
[2021-11-21] MEDS: Heparin 5,000 UNITS/ML VIAL SC SCH ×2 (09:06→14:50)
[2021-11-21] MEDS: Famotidine 20 MG TAB PO SCH (09:06)
[2021-11-21] MEDS: Insulin Glargine 30 UNITS/0.3 ML VIAL SC SCH (09:06)
[2021-11-21] MEDS: Senokot S 8.6-50 MG TAB PO SCH (09:06)
[2021-11-21] MEDS: Carvedilol 25 MG TAB PO SCH (09:06)
[2021-11-21] MEDS: Nystatin Powder 15 GM BOT TOP SCH (09:07)
[2021-11-21] MEDS: Torsemide 100 MG TAB PO SCH (09:12)
[2021-11-21] MEDS: Epoetin (ESRD) 10,000 UNITS/ML VIAL SC SCH (11:29)
[2021-11-21] MEDS: HumaLOG 300 UNITS/3 ML VIAL SC PRN (11:29)
[2021-11-21 15:25] VITALS: BP 108/40; TEMP 98.2
[2021-11-21] MEDS ORDERED: NIFEdipine XL 60 MG TAB PO SCH (21:00)
== END 2021-11-21 16:45 | disposition home health service (06) | DRG 264 ==
LOC: ERS 16:17 → CCU 18:25 → 2NO 11-10 13:58
PROVIDERS: ADMIT Family Medicine; ATTEND Hospitalist
PROC: 02HV33Z Insertion of Infusion Device into Superior Vena Cava, Percutaneous Approach (ICD-10-PCS; principal; 2021-11-08)
PROC: B548ZZA Ultrasonography of Superior Vena Cava, Guidance (ICD-10-PCS; 2021-11-08)
PROC: 5A09357 Assistance with Respiratory Ventilation, Less than 24 Consecutive Hours, Continuous Positive Airway Pressure (ICD-10-PCS; 2021-11-08)
PROC: 0JH63XZ Insertion of Tunneled Vascular Access Device into Chest Subcutaneous Tissue and Fascia, Percutaneous Approach (ICD-10-PCS; 2021-11-16)
PROC: 02HV33Z Insertion of Infusion Device into Superior Vena Cava, Percutaneous Approach (ICD-10-PCS; 2021-11-16)
PROC: B5181ZA Fluoroscopy of Superior Vena Cava using Low Osmolar Contrast, Guidance (ICD-10-PCS; 2021-11-16)
PROC: B548ZZA Ultrasonography of Superior Vena Cava, Guidance (ICD-10-PCS; 2021-11-16)
PROC: 5A1D70Z Performance of Urinary Filtration, Intermittent, Less than 6 Hours Per Day (ICD-10-PCS; 2021-11-16)
PROC: 5A1D70Z Performance of Urinary Filtration, Intermittent, Less than 6 Hours Per Day (ICD-10-PCS; 2021-11-17)
PROC: 5A1D70Z Performance of Urinary Filtration, Intermittent, Less than 6 Hours Per Day (ICD-10-PCS; 2021-11-18)
PROC: 031C0ZF Bypass Left Radial Artery to Lower Arm Vein, Open Approach (ICD-10-PCS; 2021-11-20)
PROC: 5A1D70Z Performance of Urinary Filtration, Intermittent, Less than 6 Hours Per Day (ICD-10-PCS; 2021-11-20)
DX: I13.2 Hypertensive heart and chronic kidney disease with heart failure and with stage 5 chronic kidney disease, or end stage renal disease (principal); J96.02 Acute respiratory failure with hypercapnia; I50.33 Acute on chronic diastolic (congestive) heart failure; N18.6 End stage renal disease; I21.A1 Myocardial infarction type 2; J96.01 Acute respiratory failure with hypoxia; I16.1 Hypertensive emergency; Z68.45 Body mass index [BMI] 70 or greater, adult; J44.1 Chronic obstructive pulmonary disease with (acute) exacerbation; E87.4 Mixed disorder of acid-base balance; E66.2 Morbid (severe) obesity with alveolar hypoventilation; I48.91 Unspecified atrial fibrillation; E87.5 Hyperkalemia; E11.22 Type 2 diabetes mellitus with diabetic chronic kidney disease; E78.5 Hyperlipidemia, unspecified; E11.42 Type 2 diabetes mellitus with diabetic polyneuropathy; D63.1 Anemia in chronic kidney disease; I95.9 Hypotension, unspecified; D50.9 Iron deficiency anemia, unspecified; E87.6 Hypokalemia; E55.9 Vitamin D deficiency, unspecified; Z20.822 Contact with and (suspected) exposure to COVID-19; Z90.49 Acquired absence of other specified parts of digestive tract; Z89.422 Acquired absence of other left toe(s); Z88.8 Allergy status to other drugs, medicaments and biological substances; Z91.14 Patient's other noncompliance with medication regimen; Z98.890 Other specified postprocedural states
CPT/HCPCS: 36415; 36416; 36600; 71045; 74018; 76770; 80048; 80053; 80069; 81001; 82306; 82570; 82728; 82805; 83540; 83550; 83605; 83690; 83735; 83880; 84156; 84300; 84484; 84540; 85014; 85018; 85025; 85027; 85049; 85610; 85730; 86704; 86706; 86803; 86850; 86900; 86901; 87040; 87077; 87149; 87340; 90935; 93005; 93306; 93970; 94640; 94660; 94760; 96365; 96367; 96375; C1713; C1751; C1752; C1776; G0257; J0360; J0456; J0610; J0690; J0696; J1644; J1815; J1940; J2250; J2270; J2370; J2405; J2704; J2720; J2765; J2916; J2920; J3010; J3475; J3490; J7050; J7620; Q4081; S0020; S0028; U0003; U0005

== ENCOUNTER 2021-11-27 09:26 | Observation (INO) | payer OTHER ==
[~2021-11-27 09:26] MED LIST changes: +Heparin 10,000 UNITS/ 10 ML VIAL ONE; -Sodium Chloride 0.9% 15 ML NEB ONE
[2021-11-27 11:27] LABS: #Eosinphils 0.3 thou/uL (0.0-0.7); #Lymphocytes 2.7 thou/uL (1.20-3.40); #Monocytes 1.1 thou/uL (0.11-0.59); #Neutrophils 6.2 thou/uL (1.40-6.50); %Basophils 0.3 % (0.0-1.0); %Eosinophils 2.8 % (0.0-10.0); %Monocytes 10.4 % (0.0-10.0); %Neutrophils 60.6 % (42.0-75.0); Hemoglobin 7.8 g/dL (12.0-16.0); Mean Corpuscular HGB CONC 29.4 g/dL (32.0-36.0); Mean Corpuscular Hemoglobin 30.2 pg (27.0-31.0); Mean Platelet Volume 7.7 fL (7.4-10.4); Platelet Count 299 thou/uL (130-400); RBC Distribution Width 16.1 % (11.5-14.5); Red Blood Cell (RBC) Count 2.57 mill/uL (4.20-5.40); White Blood Cell (WBC) Count 10.3 thou/uL (4.8-10.8)
[2021-11-27 11:33] LABS: ALT (SGPT) Less than 7 U/L (8-55); AST (SGOT) 14 U/L (5-34); Albumin 3.2 g/dL (3.5-5.0); Alkaline Phosphatase 75 U/L (40-110); Anion Gap 18 mmol/L (10-20); BUN (Urea Nitrogen) 77 mg/dL (7.0-18.7); Bilirubin, Total 0.2 mg/dL (0.2-1.2); Calc. Creatinine Clearance 0 mL/min (70-130); Calcium 7.8 mg/dL (7.8-10.44); Carbon Dioxide 25 mmol/L (22-29); Chloride 100 mmol/L (98-107); Globulin 3.9 g/dL (2.4-3.5); Glucose 109 mg/dL (70-105); Potassium 5.9 mmol/L (3.5-5.1); Protein, Total 7.1 g/dL (6.0-8.3); Sodium 137 mmol/L (136-145)
[2021-11-27 11:43] LABS: Hypochromia SLIGHT = 6-15 cells (100X) (0-5/hpf); MDiff Complete? YES; Macrocytosis SLIGHT = 6-15 cells (100X) (0-5/hpf); Platelet Morphology Comment Appears Adequate; Polychromasia SLIGHT = 2-3 cells (100X) (0-2/hpf)
[2021-11-27] MEDS ORDERED: hydrALAZINE 20 MG/ML VIAL SLOW IVP PRN (15:24)
[2021-11-27] MEDS ORDERED: Dextrose 5% in Water 1,000 ML IV PRN (15:26)
[2021-11-27] MEDS ORDERED: Insulin Regular 300 UNITS/3 ML VIAL SC PRN (15:26)
[2021-11-27] MEDS ORDERED: Dextrose 50% Abboject 50 ML SYRINGE SLOW IVP PRN (15:26)
[2021-11-27] MEDS ORDERED: Calcium Carbonate 500 MG ChewTAB PO PRN (17:12)
[2021-11-27] MEDS ORDERED: Ondansetron ODT 4 MG TAB PO PRN (17:12)
[2021-11-27] MEDS ORDERED: Senokot S 8.6-50 MG TAB PO PRN (17:12)
[2021-11-27] MEDS ORDERED: Acetaminophen 325 MG TAB PO PRN (17:12)
[2021-11-27] MEDS ORDERED: Ondansetron PF 4 MG/2 ML Vial IVP PRN (17:12)
[2021-11-27 20:00] VITALS: BMI 69.5
[2021-11-27] MEDS ORDERED: Atorvastatin Calcium 40 MG TAB PO SCH (21:00)
[2021-11-27] MEDS ORDERED: Famotidine 20 MG TAB PO SCH (21:00)
[2021-11-27] MEDS ORDERED: NPH, Human Insulin Isophane 300 UNIT/3 ML VIAL SC SCH (21:00)
[2021-11-27] MEDS: Carvedilol 25 MG TAB PO SCH (21:07)
[2021-11-27] MEDS: Heparin 5,000 UNITS/ML VIAL SC SCH (21:07)
[2021-11-27] MEDS: Nystatin Powder 15 GM BOT TOP SCH (21:08)
[2021-11-27 23:11] LABS: SARS-CoV-2 PCR by NAA Not Detected (NotDetected)
[2021-11-28 05:09] LABS: Anion Gap 16 mmol/L (10-20); BUN (Urea Nitrogen) 39 mg/dL (7.0-18.7); Calc. Creatinine Clearance 48 mL/min (70-130); Calcium 7.9 mg/dL (7.8-10.44); Carbon Dioxide 27 mmol/L (22-29); Chloride 100 mmol/L (98-107); Glucose 176 mg/dL (70-105); Potassium 4.7 mmol/L (3.5-5.1); Sodium 138 mmol/L (136-145)
[2021-11-28] MEDS: Insulin Regular 300 UNITS/3 ML VIAL SC PRN ×2 (06:02→11:02)
[2021-11-28] MEDS ORDERED: Aspirin 81 mg Enteric Coated Tablet PO SCH (09:00)
[2021-11-28] MEDS ORDERED: Furosemide 20 MG TAB PO SCH (09:00)
[2021-11-28] MEDS ORDERED: NIFEdipine XL 60 MG TAB PO SCH ×2 (09:00→21:00)
[2021-11-28] MEDS ORDERED: NPH, Human Insulin Isophane 300 UNIT/3 ML VIAL SC SCH (09:00)
[2021-11-28] MEDS: Carvedilol 25 MG TAB PO SCH (09:09)
[2021-11-28] MEDS: Heparin 5,000 UNITS/ML VIAL SC SCH ×2 (09:09→14:32)
[2021-11-28] MEDS: Nystatin Powder 15 GM BOT TOP SCH (09:10)
[2021-11-28] MEDS ORDERED: Epoetin (ESRD) 10,000 UNITS/ML VIAL IVP SCH (09:45)
[2021-11-28] MEDS ORDERED: EPOETIN ALFA-EPBX (ESRD) 10,000 UNIT/ML VIAL IVP SCH (10:00)
[2021-11-28 10:19] VITALS: BP 159/91; TEMP 97.7
[2021-11-28] MEDS ORDERED: Carvedilol 25 MG TAB PO SCH (21:00)
[2021-11-29] MEDS ORDERED: EPOETIN ALFA-EPBX (ESRD) 10,000 UNIT/ML VIAL IVP SCH (09:00)
[2021-11-29] MEDS ORDERED: Epoetin (ESRD) 10,000 UNITS/ML VIAL IVP SCH (09:38)
== END 2021-11-28 17:09 | disposition home or self-care (01) ==
LOC: ERS 09:26 → 2NO 12:48
PROVIDERS: ADMIT Internal Medicine; ATTEND Internal Medicine
DX: I13.2 Hypertensive heart and chronic kidney disease with heart failure and with stage 5 chronic kidney disease, or end stage renal disease (principal); E11.22 Type 2 diabetes mellitus with diabetic chronic kidney disease; N18.6 End stage renal disease; I50.32 Chronic diastolic (congestive) heart failure; D63.1 Anemia in chronic kidney disease; E87.5 Hyperkalemia; E78.5 Hyperlipidemia, unspecified; E55.9 Vitamin D deficiency, unspecified; E11.43 Type 2 diabetes mellitus with diabetic autonomic (poly)neuropathy; K31.84 Gastroparesis; E66.2 Morbid (severe) obesity with alveolar hypoventilation; Z68.44 Body mass index [BMI] 60.0-69.9, adult; Z79.4 Long term (current) use of insulin; Z79.82 Long term (current) use of aspirin; Z79.899 Other long term (current) drug therapy; Z88.8 Allergy status to other drugs, medicaments and biological substances; Z89.432 Acquired absence of left foot; Z99.2 Dependence on renal dialysis; Z20.822 Contact with and (suspected) exposure to COVID-19
CPT/HCPCS: 36415; 36416; 71045; 80048; 80053; 85025; 90935; 93005; 96372; G0257; G0378; J1644; J1815; Q5105; U0003; U0005

== ENCOUNTER 2021-12-06 09:43 | Inpatient (IN) | payer OTHER ==
[2021-12-06 10:52] LABS: #Eosinphils 0.5 thou/uL (0.0-0.7); #Lymphocytes 2.1 thou/uL (1.20-3.40); #Monocytes 0.7 thou/uL (0.11-0.59); #Neutrophils 4.8 thou/uL (1.40-6.50); %Basophils 0.2 % (0.0-1.0); %Eosinophils 5.9 % (0.0-10.0); %Lymphocytes 25.8 % (21.0-51.0); %Monocytes 8.9 % (0.0-10.0); %Neutrophils 59.1 % (42.0-75.0); Hemoglobin 8.1 g/dL (12.0-16.0); Mean Corpuscular HGB CONC 30.7 g/dL (32.0-36.0); Mean Corpuscular Hemoglobin 31.3 pg (27.0-31.0); Platelet Count 301 thou/uL (130-400); RBC Distribution Width 14.7 % (11.5-14.5); Red Blood Cell (RBC) Count 2.57 mill/uL (4.20-5.40); White Blood Cell (WBC) Count 8.1 thou/uL (4.8-10.8)
[2021-12-06 11:12] LABS: Albumin 3.2 g/dL (3.5-5.0); Anion Gap 20 mmol/L (10-20); BUN (Urea Nitrogen) 95 mg/dL (7.0-18.7); Bilirubin, Total 0.3 mg/dL (0.2-1.2); Calc. Creatinine Clearance 0 mL/min (70-130); Calcium 7.7 mg/dL (7.8-10.44); Carbon Dioxide 23 mmol/L (22-29); Chloride 103 mmol/L (98-107); Glucose 126 mg/dL (70-105); Potassium 5.5 mmol/L (3.5-5.1); Protein, Total 6.5 g/dL (6.0-8.3); Sodium 140 mmol/L (136-145)
[2021-12-06 11:13] LABS: ALT (SGPT) 7 U/L (8-55); AST (SGOT) 13 U/L (5-34); Alkaline Phosphatase 86 U/L (40-110); CK (CPK) 73 U/L (29-168); Globulin 3.3 g/dL (2.4-3.5); Lipase 29 U/L (8-78)
[2021-12-06] MEDS ORDERED: Acetaminophen 325 MG TAB PO PRN (12:42)
[2021-12-06] MEDS ORDERED: Guaifenesin DM 100-10/5 ML UDCUP PO PRN (12:42)
[2021-12-06] MEDS ORDERED: Calcium Carbonate 500 MG ChewTAB PO PRN (12:42)
[2021-12-06] MEDS ORDERED: Senokot S 8.6-50 MG TAB PO PRN (12:42)
[2021-12-06] MEDS ORDERED: Ondansetron PF 4 MG/2 ML Vial IVP PRN (12:42)
[2021-12-06] MEDS ORDERED: Dextrose 50% Abboject 50 ML SYRINGE SLOW IVP PRN (12:46)
[2021-12-06] MEDS ORDERED: Dextrose 5% in Water 1,000 ML IV PRN (12:46)
[2021-12-06] MEDS ORDERED: hydrALAZINE 20 MG/ML VIAL SLOW IVP PRN (13:06)
[2021-12-06] MEDS: Famotidine 20 MG TAB PO SCH (20:59)
[2021-12-06] MEDS: guaiFENesin ER 600 MG TAB PO SCH (20:59)
[2021-12-07 04:57] LABS: #Eosinphils 0.4 thou/uL (0.0-0.7); #Lymphocytes 0.7 thou/uL (1.20-3.40); #Monocytes 0.9 thou/uL (0.11-0.59); #Neutrophils 4.6 thou/uL (1.40-6.50); %Basophils 0.4 % (0.0-1.0); %Eosinophils 6.4 % (0.0-10.0); %Lymphocytes 10.4 % (21.0-51.0); %Monocytes 13.1 % (0.0-10.0); %Neutrophils 69.7 % (42.0-75.0); Hemoglobin 9.6 g/dL (12.0-16.0); Mean Corpuscular HGB CONC 30.5 g/dL (32.0-36.0); Mean Platelet Volume 7.8 fL (7.4-10.4); Platelet Count 269 thou/uL (130-400); RBC Distribution Width 14.6 % (11.5-14.5); White Blood Cell (WBC) Count 6.6 thou/uL (4.8-10.8)
[2021-12-07 05:20] LABS: Albumin 3.3 g/dL (3.5-5.0); Anion Gap 14 mmol/L (10-20); BUN (Urea Nitrogen) 52 mg/dL (7.0-18.7); BUN/Creatinine Ratio 11.33; Calc. Creatinine Clearance 47 mL/min (70-130); Calcium 8.4 mg/dL (7.8-10.44); Carbon Dioxide 28 mmol/L (22-29); Chloride 101 mmol/L (98-107); Glucose 227 mg/dL (70-105); Phosphorus 5.6 mg/dL (2.3-4.7); Potassium 4.8 mmol/L (3.5-5.1); Sodium 138 mmol/L (136-145)
[2021-12-07] MEDS: HumaLOG 300 UNITS/3 ML VIAL SC PRN ×3 (06:05→18:23)
[2021-12-07] MEDS ORDERED: Carvedilol 25 MG TAB PO SCH ×2 (09:30→21:00)
[2021-12-07] MEDS ORDERED: NIFEdipine XL 60 MG TAB PO SCH (09:30)
[2021-12-07] MEDS: Enoxaparin Sodium 30 MG/0.3 ML SYRINGE SC SCH (10:14)
[2021-12-07] MEDS: guaiFENesin ER 600 MG TAB PO SCH ×2 (10:15→20:24)
[2021-12-07 12:30] LABS: SARS-CoV-2 PCR by NAA Not Detected (NotDetected)
[2021-12-07] MEDS ORDERED: traMADol HCl 50 MG TAB PO PRN (14:49)
[2021-12-07] MEDS: Metoclopramide HCl 10 MG TAB PO SCH ×2 (18:10→20:24)
[2021-12-07] MEDS: Carvedilol 25 MG TAB PO SCH (18:10)
[2021-12-07] MEDS: Gabapentin 300 MG CAP PO SCH (20:23)
[2021-12-07] MEDS: Atorvastatin Calcium 20 MG TAB PO SCH (20:24)
[2021-12-07] MEDS: Ferrous Sulfate 325 MG TAB PO SCH (20:24)
[2021-12-07] MEDS: Amitriptyline HCl 25 MG TAB PO SCH (20:24)
[2021-12-07] MEDS: Famotidine 20 MG TAB PO SCH (20:24)
[2021-12-07] MEDS: Nystatin Powder 15 GM BOT TOP SCH (20:29)
[2021-12-08] MEDS: Gabapentin 300 MG CAP PO SCH ×2 (08:24→20:38)
[2021-12-08] MEDS: Metoclopramide HCl 10 MG TAB PO SCH ×4 (08:24→20:39)
[2021-12-08] MEDS: Furosemide 20 MG TAB PO SCH (08:24)
[2021-12-08] MEDS: Aspirin 81 mg Enteric Coated Tablet PO SCH (08:24)
[2021-12-08] MEDS: Carvedilol 25 MG TAB PO SCH ×2 (08:24→16:02)
[2021-12-08] MEDS: guaiFENesin ER 600 MG TAB PO SCH ×2 (08:24→20:39)
[2021-12-08] MEDS: HumuLIN 70/30 (300 UNITS/3 ML VIAL) SC SCH ×3 (08:25→17:30)
[2021-12-08] MEDS: Enoxaparin Sodium 30 MG/0.3 ML SYRINGE SC SCH (08:25)
[2021-12-08] MEDS: Ferrous Sulfate 325 MG TAB PO SCH ×3 (08:25→20:40)
[2021-12-08] MEDS ORDERED: Heparin 10,000 UNITS/ 10 ML VIAL ONE (08:45)
[2021-12-08] MEDS: NIFEdipine XL 60 MG TAB PO SCH (08:58)
[2021-12-08] MEDS ORDERED: Epoetin (ESRD) 20,000 UNITS/ML SC SCH (09:00)
[2021-12-08] MEDS: Nystatin Powder 15 GM BOT TOP SCH ×2 (09:02→21:36)
[2021-12-08] MEDS: EPOETIN ALFA-EPBX (ESRD) 10,000 UNIT/ML VIAL SC SCH (09:09)
[2021-12-08] MEDS: Famotidine 20 MG TAB PO SCH (20:39)
[2021-12-08] MEDS: Atorvastatin Calcium 20 MG TAB PO SCH (20:39)
[2021-12-08] MEDS: Amitriptyline HCl 25 MG TAB PO SCH (20:39)
[2021-12-09 04:31] LABS: #Basophils 0.1 thou/uL (0.0-0.2); #Eosinphils 0.4 thou/uL (0.0-0.7); #Lymphocytes 2.1 thou/uL (1.20-3.40); #Monocytes 0.8 thou/uL (0.11-0.59); #Neutrophils 3.5 thou/uL (1.40-6.50); %Eosinophils 5.7 % (0.0-10.0); %Lymphocytes 30.2 % (21.0-51.0); %Monocytes 12.4 % (0.0-10.0); %Neutrophils 50.7 % (42.0-75.0); Hemoglobin 9.1 g/dL (12.0-16.0); Mean Corpuscular HGB CONC 30.6 g/dL (32.0-36.0); Mean Platelet Volume 7.6 fL (7.4-10.4); Platelet Count 216 thou/uL (130-400); RBC Distribution Width 14.3 % (11.5-14.5); Red Blood Cell (RBC) Count 2.93 mill/uL (4.20-5.40); White Blood Cell (WBC) Count 6.8 thou/uL (4.8-10.8)
[2021-12-09 04:59] LABS: Anion Gap 16 mmol/L (10-20); BUN (Urea Nitrogen) 36 mg/dL (7.0-18.7); Calc. Creatinine Clearance 55 mL/min (70-130); Calcium 8.1 mg/dL (7.8-10.44); Carbon Dioxide 23 mmol/L (22-29); Chloride 103 mmol/L (98-107); Glucose 192 mg/dL (70-105); Potassium 4.4 mmol/L (3.5-5.1); Sodium 138 mmol/L (136-145)
[2021-12-09] MEDS: NIFEdipine XL 60 MG TAB PO SCH (09:23)
[2021-12-09] MEDS: Aspirin 81 mg Enteric Coated Tablet PO SCH (09:23)
[2021-12-09] MEDS: Enoxaparin Sodium 30 MG/0.3 ML SYRINGE SC SCH (09:23)
[2021-12-09] MEDS: Gabapentin 300 MG CAP PO SCH ×2 (09:24→21:32)
[2021-12-09] MEDS: Ferrous Sulfate 325 MG TAB PO SCH ×3 (09:24→21:31)
[2021-12-09] MEDS: Furosemide 20 MG TAB PO SCH (09:24)
[2021-12-09] MEDS: Carvedilol 25 MG TAB PO SCH ×2 (09:24→17:59)
[2021-12-09] MEDS: Metoclopramide HCl 10 MG TAB PO SCH ×4 (09:24→21:30)
[2021-12-09] MEDS: Torsemide 100 MG TAB PO SCH (09:25)
[2021-12-09] MEDS: guaiFENesin ER 600 MG TAB PO SCH ×2 (09:25→21:31)
[2021-12-09] MEDS: Nystatin Powder 15 GM BOT TOP SCH ×2 (09:26→21:33)
[2021-12-09] MEDS: HumuLIN 70/30 (300 UNITS/3 ML VIAL) SC SCH ×2 (09:27→17:58)
[2021-12-09] MEDS: Atorvastatin Calcium 20 MG TAB PO SCH (21:30)
[2021-12-09] MEDS: Famotidine 20 MG TAB PO SCH (21:31)
[2021-12-09] MEDS: Amitriptyline HCl 25 MG TAB PO SCH (21:31)
[2021-12-10] MEDS: Gabapentin 300 MG CAP PO SCH ×2 (08:58→20:45)
[2021-12-10] MEDS: Aspirin 81 mg Enteric Coated Tablet PO SCH (08:58)
[2021-12-10] MEDS: Enoxaparin Sodium 30 MG/0.3 ML SYRINGE SC SCH (08:58)
[2021-12-10] MEDS: guaiFENesin ER 600 MG TAB PO SCH ×3 (08:59→20:46)
[2021-12-10] MEDS: Ferrous Sulfate 325 MG TAB PO SCH ×3 (08:59→20:44)
[2021-12-10] MEDS: Carvedilol 25 MG TAB PO SCH ×2 (08:59→16:20)
[2021-12-10] MEDS: Metoclopramide HCl 10 MG TAB PO SCH ×4 (08:59→20:44)
[2021-12-10] MEDS: HumuLIN 70/30 (300 UNITS/3 ML VIAL) SC SCH ×2 (09:00→16:20)
[2021-12-10] MEDS: Torsemide 100 MG TAB PO SCH (09:01)
[2021-12-10] MEDS: Triple Antibiotic Oint 1 GM Packet TOP SCH (09:01)
[2021-12-10] MEDS: Nystatin Powder 15 GM BOT TOP SCH ×2 (09:02→20:46)
[2021-12-10] MEDS ORDERED: NIFEdipine XL 30 MG TAB PO SCH (10:30)
[2021-12-10] MEDS: Famotidine 20 MG TAB PO SCH (20:44)
[2021-12-10] MEDS: Amitriptyline HCl 25 MG TAB PO SCH (20:44)
[2021-12-10] MEDS: Atorvastatin Calcium 20 MG TAB PO SCH (20:44)
[2021-12-11 05:00] LABS: Albumin 3.2 g/dL (3.5-5.0); Anion Gap 17 mmol/L (10-20); BUN (Urea Nitrogen) 47 mg/dL (7.0-18.7); BUN/Creatinine Ratio 9.71; Calc. Creatinine Clearance 43 mL/min (70-130); Calcium 8.3 mg/dL (7.8-10.44); Carbon Dioxide 25 mmol/L (22-29); Chloride 103 mmol/L (98-107); Glucose 76 mg/dL (70-105); Phosphorus 5.7 mg/dL (2.3-4.7); Potassium 5.2 mmol/L (3.5-5.1); Sodium 140 mmol/L (136-145)
[2021-12-11] MEDS: Triple Antibiotic Oint 1 GM Packet TOP SCH (05:32)
[2021-12-11] MEDS: Carvedilol 25 MG TAB PO SCH ×2 (08:19→17:50)
[2021-12-11] MEDS: Ferrous Sulfate 325 MG TAB PO SCH ×3 (08:32→21:00)
[2021-12-11] MEDS: Metoclopramide HCl 10 MG TAB PO SCH ×4 (08:32→21:01)
[2021-12-11] MEDS ORDERED: Sterile Water 10 ML VIAL IVP SCH ×2 (11:15)
[2021-12-11] MEDS ORDERED: Activase 2 MG VIAL CATH SCH (11:15)
[2021-12-11] MEDS: HumuLIN 70/30 (300 UNITS/3 ML VIAL) SC SCH ×2 (11:17→17:50)
[2021-12-11] MEDS: EPOETIN ALFA-EPBX (ESRD) 10,000 UNIT/ML VIAL SC SCH (11:26)
[2021-12-11] MEDS ORDERED: Epoetin (ESRD) 10,000 UNITS/ML VIAL SC SCH (11:30)
[2021-12-11] MEDS: Enoxaparin Sodium 30 MG/0.3 ML SYRINGE SC SCH (13:50)
[2021-12-11] MEDS: Torsemide 100 MG TAB PO SCH (13:50)
[2021-12-11] MEDS: guaiFENesin ER 600 MG TAB PO SCH ×2 (13:51→20:59)
[2021-12-11] MEDS: Folic Acid 1 MG TAB PO SCH (13:51)
[2021-12-11] MEDS: Gabapentin 300 MG CAP PO SCH ×2 (13:51→21:00)
[2021-12-11] MEDS: NIFEdipine XL 60 MG TAB PO SCH (13:51)
[2021-12-11] MEDS: Aspirin 81 mg Enteric Coated Tablet PO SCH (13:51)
[2021-12-11] MEDS: Nystatin Powder 15 GM BOT TOP SCH ×2 (13:52→21:04)
[2021-12-11] MEDS: Famotidine 20 MG TAB PO SCH (20:59)
[2021-12-11] MEDS: Atorvastatin Calcium 20 MG TAB PO SCH (20:59)
[2021-12-11] MEDS: Amitriptyline HCl 25 MG TAB PO SCH (21:00)
[2021-12-12] MEDS: Carvedilol 25 MG TAB PO SCH ×2 (08:23→16:16)
[2021-12-12] MEDS: Gabapentin 300 MG CAP PO SCH ×2 (08:23→20:40)
[2021-12-12] MEDS: Enoxaparin Sodium 30 MG/0.3 ML SYRINGE SC SCH (08:23)
[2021-12-12] MEDS: NIFEdipine XL 60 MG TAB PO SCH (08:23)
[2021-12-12] MEDS: Ferrous Sulfate 325 MG TAB PO SCH ×2 (08:23→20:40)
[2021-12-12] MEDS: Folic Acid 1 MG TAB PO SCH (08:23)
[2021-12-12] MEDS: guaiFENesin ER 600 MG TAB PO SCH ×2 (08:23→20:40)
[2021-12-12] MEDS: Aspirin 81 mg Enteric Coated Tablet PO SCH (08:23)
[2021-12-12] MEDS: HumuLIN 70/30 (300 UNITS/3 ML VIAL) SC SCH ×2 (08:25→16:17)
[2021-12-12] MEDS: Torsemide 100 MG TAB PO SCH (08:25)
[2021-12-12] MEDS: Metoclopramide HCl 10 MG TAB PO SCH ×4 (08:25→20:40)
[2021-12-12] MEDS: Nystatin Powder 15 GM BOT TOP SCH ×2 (08:31→20:44)
[2021-12-12] MEDS: Triple Antibiotic Oint 1 GM Packet TOP SCH (08:37)
[2021-12-12] MEDS: HumaLOG 300 UNITS/3 ML VIAL SC PRN (17:31)
[2021-12-12] MEDS: Atorvastatin Calcium 20 MG TAB PO SCH (20:39)
[2021-12-12] MEDS: Famotidine 20 MG TAB PO SCH (20:39)
[2021-12-12] MEDS: Amitriptyline HCl 25 MG TAB PO SCH (20:48)
[2021-12-13] MEDS: Aspirin 81 mg Enteric Coated Tablet PO SCH (08:06)
[2021-12-13] MEDS: Metoclopramide HCl 10 MG TAB PO SCH ×4 (08:06→20:36)
[2021-12-13] MEDS: HumuLIN 70/30 (300 UNITS/3 ML VIAL) SC SCH ×2 (08:06→17:43)
[2021-12-13] MEDS: Carvedilol 25 MG TAB PO SCH ×2 (08:06→16:46)
[2021-12-13] MEDS: Folic Acid 1 MG TAB PO SCH (08:07)
[2021-12-13] MEDS: Ferrous Sulfate 325 MG TAB PO SCH ×2 (08:07→20:37)
[2021-12-13] MEDS: Enoxaparin Sodium 30 MG/0.3 ML SYRINGE SC SCH (08:07)
[2021-12-13] MEDS: guaiFENesin ER 600 MG TAB PO SCH ×2 (08:07→20:37)
[2021-12-13] MEDS: Gabapentin 300 MG CAP PO SCH ×2 (08:07→20:35)
[2021-12-13] MEDS: NIFEdipine XL 60 MG TAB PO SCH (08:07)
[2021-12-13] MEDS: Torsemide 100 MG TAB PO SCH (08:08)
[2021-12-13] MEDS: Triple Antibiotic Oint 1 GM Packet TOP SCH (08:31)
[2021-12-13] MEDS: Nystatin Powder 15 GM BOT TOP SCH ×2 (08:31→20:38)
[2021-12-13] MEDS ORDERED: Heparin 10,000 UNITS/ 10 ML VIAL ONE (08:48)
[2021-12-13] MEDS: Epoetin (ESRD) 10,000 UNITS/ML VIAL SC SCH (14:17)
[2021-12-13] MEDS: Amitriptyline HCl 25 MG TAB PO SCH (20:35)
[2021-12-13] MEDS: Famotidine 20 MG TAB PO SCH (20:36)
[2021-12-13] MEDS: Atorvastatin Calcium 20 MG TAB PO SCH (20:37)
[2021-12-13 21:35] LABS: SARS-CoV-2 PCR by NAA Not Detected (NotDetected)
[2021-12-14] MEDS: Torsemide 100 MG TAB PO SCH (07:53)
[2021-12-14] MEDS: NIFEdipine XL 60 MG TAB PO SCH (07:53)
[2021-12-14] MEDS: Ferrous Sulfate 325 MG TAB PO SCH ×2 (07:53→19:42)
[2021-12-14] MEDS: guaiFENesin ER 600 MG TAB PO SCH ×2 (07:53→19:42)
[2021-12-14] MEDS: Enoxaparin Sodium 30 MG/0.3 ML SYRINGE SC SCH (07:53)
[2021-12-14] MEDS: Aspirin 81 mg Enteric Coated Tablet PO SCH (07:53)
[2021-12-14] MEDS: Gabapentin 300 MG CAP PO SCH ×2 (07:53→19:41)
[2021-12-14] MEDS: Folic Acid 1 MG TAB PO SCH (07:54)
[2021-12-14] MEDS: Metoclopramide HCl 10 MG TAB PO SCH ×4 (07:54→19:45)
[2021-12-14] MEDS: Carvedilol 25 MG TAB PO SCH ×2 (07:54→15:53)
[2021-12-14] MEDS: HumuLIN 70/30 (300 UNITS/3 ML VIAL) SC SCH ×2 (07:54→15:53)
[2021-12-14] MEDS: Triple Antibiotic Oint 1 GM Packet TOP SCH (07:55)
[2021-12-14] MEDS: Nystatin Powder 15 GM BOT TOP SCH ×2 (07:55→19:45)
[2021-12-14] MEDS ORDERED: Ergocalciferol 1.25 MG(50,000 UNITS) CAP PO SCH (09:00)
[2021-12-14 12:02] VITALS: BMI 67.9
[2021-12-14] MEDS: HYDROcodone/Acetaminophen 5/325 mg Tablet PO PRN (15:56)
[2021-12-14] MEDS: Amitriptyline HCl 25 MG TAB PO SCH (19:42)
[2021-12-14] MEDS: Atorvastatin Calcium 20 MG TAB PO SCH (19:42)
[2021-12-14] MEDS: Famotidine 20 MG TAB PO SCH (19:43)
[2021-12-15 08:41] LABS: Albumin 3.2 g/dL (3.5-5.0); Anion Gap 16 mmol/L (10-20); BUN (Urea Nitrogen) 34 mg/dL (7.0-18.7); Calc. Creatinine Clearance 40 mL/min (70-130); Calcium 8.4 mg/dL (7.8-10.44); Carbon Dioxide 24 mmol/L (22-29); Chloride 103 mmol/L (98-107); Glucose 192 mg/dL (70-105); Phosphorus 4.9 mg/dL (2.3-4.7); Potassium 4.4 mmol/L (3.5-5.1); Sodium 139 mmol/L (136-145)
[2021-12-15 08:49] LABS: Hemoglobin 9.3 g/dL (12.0-16.0); Mean Corpuscular HGB CONC 29.7 g/dL (32.0-36.0); Mean Corpuscular Hemoglobin 30.2 pg (27.0-31.0); Mean Platelet Volume 8.3 fL (7.4-10.4); Platelet Count 242 thou/uL (130-400); RBC Distribution Width 14.1 % (11.5-14.5); Red Blood Cell (RBC) Count 3.09 mill/uL (4.20-5.40); White Blood Cell (WBC) Count 10.3 thou/uL (4.8-10.8)
[2021-12-15 09:57] LABS: HBSAB Concentration Less than 8.00 mIU/mL; Hep B Surf AB Non-Reactive (NonReactive); Hep B Surf Ag Non-Reactive S/CO (NonReactive)
[2021-12-15] MEDS: HumuLIN 70/30 (300 UNITS/3 ML VIAL) SC SCH ×2 (11:07→16:11)
[2021-12-15] MEDS: Gabapentin 300 MG CAP PO SCH ×2 (11:08→20:57)
[2021-12-15] MEDS: Carvedilol 25 MG TAB PO SCH ×2 (11:08→16:12)
[2021-12-15] MEDS: Ferrous Sulfate 325 MG TAB PO SCH ×2 (11:08→20:59)
[2021-12-15] MEDS: Nystatin Powder 15 GM BOT TOP SCH ×2 (11:08→21:05)
[2021-12-15] MEDS: guaiFENesin ER 600 MG TAB PO SCH ×2 (11:08→20:57)
[2021-12-15] MEDS: Metoclopramide HCl 10 MG TAB PO SCH ×4 (11:08→21:04)
[2021-12-15] MEDS: Folic Acid 1 MG TAB PO SCH (14:41)
[2021-12-15] MEDS: NIFEdipine XL 60 MG TAB PO SCH (14:41)
[2021-12-15] MEDS: Triple Antibiotic Oint 1 GM Packet TOP SCH (14:43)
[2021-12-15] MEDS: Enoxaparin Sodium 30 MG/0.3 ML SYRINGE SC SCH (14:43)
[2021-12-15] MEDS: Torsemide 100 MG TAB PO SCH (14:43)
[2021-12-15] MEDS: Aspirin 81 mg Enteric Coated Tablet PO SCH (14:43)
[2021-12-15] MEDS: Epoetin (ESRD) 10,000 UNITS/ML VIAL SC SCH (16:52)
[2021-12-15] MEDS: Amitriptyline HCl 25 MG TAB PO SCH (20:57)
[2021-12-15] MEDS: Atorvastatin Calcium 20 MG TAB PO SCH (20:58)
[2021-12-15] MEDS: Famotidine 20 MG TAB PO SCH (20:59)
[2021-12-15] MEDS: HYDROcodone/Acetaminophen 5/325 mg Tablet PO PRN (22:03)
[2021-12-16] MEDS: Metoclopramide HCl 10 MG TAB PO SCH ×4 (08:24→19:58)
[2021-12-16] MEDS: Carvedilol 25 MG TAB PO SCH ×2 (08:24→16:22)
[2021-12-16] MEDS: NIFEdipine XL 60 MG TAB PO SCH (08:25)
[2021-12-16] MEDS: Triple Antibiotic Oint 1 GM Packet TOP SCH (08:25)
[2021-12-16] MEDS: HumuLIN 70/30 (300 UNITS/3 ML VIAL) SC SCH ×2 (08:25→16:21)
[2021-12-16] MEDS: Enoxaparin Sodium 30 MG/0.3 ML SYRINGE SC SCH (08:25)
[2021-12-16] MEDS: Gabapentin 300 MG CAP PO SCH ×2 (08:25→20:02)
[2021-12-16] MEDS: Aspirin 81 mg Enteric Coated Tablet PO SCH (08:25)
[2021-12-16] MEDS: guaiFENesin ER 600 MG TAB PO SCH ×2 (08:25→20:03)
[2021-12-16] MEDS: Folic Acid 1 MG TAB PO SCH (08:25)
[2021-12-16] MEDS: Ferrous Sulfate 325 MG TAB PO SCH ×2 (08:25→20:02)
[2021-12-16] MEDS: Torsemide 100 MG TAB PO SCH (08:26)
[2021-12-16] MEDS: Nystatin Powder 15 GM BOT TOP SCH ×2 (08:26→20:03)
[2021-12-16] MEDS: Famotidine 20 MG TAB PO SCH (19:58)
[2021-12-16] MEDS: HYDROcodone/Acetaminophen 5/325 mg Tablet PO PRN (20:01)
[2021-12-16] MEDS: Atorvastatin Calcium 20 MG TAB PO SCH (20:02)
[2021-12-16] MEDS: Amitriptyline HCl 25 MG TAB PO SCH (20:02)
[2021-12-17] MEDS: HumuLIN 70/30 (300 UNITS/3 ML VIAL) SC SCH ×2 (08:24→15:52)
[2021-12-17] MEDS: Aspirin 81 mg Enteric Coated Tablet PO SCH (08:24)
[2021-12-17] MEDS: NIFEdipine XL 60 MG TAB PO SCH (08:24)
[2021-12-17] MEDS: Carvedilol 25 MG TAB PO SCH ×2 (08:24→15:52)
[2021-12-17] MEDS: Ferrous Sulfate 325 MG TAB PO SCH ×2 (08:24→21:07)
[2021-12-17] MEDS: guaiFENesin ER 600 MG TAB PO SCH ×2 (08:24→21:07)
[2021-12-17] MEDS: Folic Acid 1 MG TAB PO SCH (08:25)
[2021-12-17] MEDS: Gabapentin 300 MG CAP PO SCH ×2 (08:25→21:05)
[2021-12-17] MEDS: Metoclopramide HCl 10 MG TAB PO SCH ×4 (08:25→21:06)
[2021-12-17] MEDS: Torsemide 100 MG TAB PO SCH (08:26)
[2021-12-17] MEDS: Nystatin Powder 15 GM BOT TOP SCH ×2 (08:26→21:11)
[2021-12-17] MEDS: Triple Antibiotic Oint 1 GM Packet TOP SCH (08:26)
[2021-12-17] MEDS: Enoxaparin Sodium 30 MG/0.3 ML SYRINGE SC SCH (08:27)
[2021-12-17] MEDS: traMADol HCl 50 MG TAB PO PRN (17:47)
[2021-12-17] MEDS: Atorvastatin Calcium 20 MG TAB PO SCH (21:04)
[2021-12-17] MEDS: Famotidine 20 MG TAB PO SCH (21:06)
[2021-12-17] MEDS: Amitriptyline HCl 25 MG TAB PO SCH (21:07)
[2021-12-18] MEDS: Folic Acid 1 MG TAB PO SCH (08:24)
[2021-12-18] MEDS: Aspirin 81 mg Enteric Coated Tablet PO SCH (08:24)
[2021-12-18] MEDS: Enoxaparin Sodium 30 MG/0.3 ML SYRINGE SC SCH (08:24)
[2021-12-18] MEDS: guaiFENesin ER 600 MG TAB PO SCH ×2 (08:25→21:04)
[2021-12-18] MEDS: Metoclopramide HCl 10 MG TAB PO SCH ×4 (08:25→21:02)
[2021-12-18] MEDS: Gabapentin 300 MG CAP PO SCH ×2 (08:25→21:02)
[2021-12-18] MEDS: Ferrous Sulfate 325 MG TAB PO SCH ×2 (08:25→21:02)
[2021-12-18] MEDS: Carvedilol 25 MG TAB PO SCH ×2 (08:25→16:46)
[2021-12-18] MEDS: HumuLIN 70/30 (300 UNITS/3 ML VIAL) SC SCH ×2 (08:26→16:34)
[2021-12-18] MEDS: NIFEdipine XL 60 MG TAB PO SCH (08:27)
[2021-12-18] MEDS: Triple Antibiotic Oint 1 GM Packet TOP SCH (08:27)
[2021-12-18] MEDS: Nystatin Powder 15 GM BOT TOP SCH ×2 (08:28→21:03)
[2021-12-18] MEDS ORDERED: Heparin 10,000 UNITS/ 10 ML VIAL ONE (08:54)
[2021-12-18 10:14] LABS: Anion Gap 14 mmol/L (10-20); BUN (Urea Nitrogen) 42 mg/dL (7.0-18.7); Calc. Creatinine Clearance 38 mL/min (70-130); Calcium 7.9 mg/dL (7.8-10.44); Carbon Dioxide 27 mmol/L (22-29); Chloride 100 mmol/L (98-107); Glucose 204 mg/dL (70-105); Potassium 4.3 mmol/L (3.5-5.1); Sodium 137 mmol/L (136-145)
[2021-12-18] MEDS ORDERED: CEFAZOLIN 2 GM in Sodium Chloride 0.9% 100 ML IVPB SCH (13:45)
[2021-12-18] MEDS: HumaLOG 300 UNITS/3 ML VIAL SC PRN ×3 (14:10→21:02)
[2021-12-18] MEDS: Torsemide 100 MG TAB PO SCH (14:11)
[2021-12-18] MEDS: Epoetin (ESRD) 10,000 UNITS/ML VIAL SC SCH (16:32)
[2021-12-18] MEDS: traMADol HCl 50 MG TAB PO PRN (16:33)
[2021-12-18] MEDS: Famotidine 20 MG TAB PO SCH (21:01)
[2021-12-18] MEDS: Amitriptyline HCl 25 MG TAB PO SCH (21:01)
[2021-12-18] MEDS: Atorvastatin Calcium 20 MG TAB PO SCH (21:01)
[2021-12-19] MEDS: Carvedilol 25 MG TAB PO SCH ×2 (05:29→16:53)
[2021-12-19 07:36] LABS: #Basophils 0.1 thou/uL (0.0-0.2); #Eosinphils 0.3 thou/uL (0.0-0.7); #Lymphocytes 3.5 thou/uL (1.20-3.40); #Monocytes 1.3 thou/uL (0.11-0.59); #Neutrophils 5.8 thou/uL (1.40-6.50); %Basophils 0.5 % (0.0-1.0); %Lymphocytes 31.7 % (21.0-51.0); %Monocytes 11.4 % (0.0-10.0); %Neutrophils 53.4 % (42.0-75.0); Hemoglobin 9.3 g/dL (12.0-16.0); Mean Corpuscular HGB CONC 30.2 g/dL (32.0-36.0); Mean Corpuscular Hemoglobin 30.6 pg (27.0-31.0); Mean Platelet Volume 7.6 fL (7.4-10.4); Platelet Count 271 thou/uL (130-400); RBC Distribution Width 14.3 % (11.5-14.5); Red Blood Cell (RBC) Count 3.05 mill/uL (4.20-5.40); White Blood Cell (WBC) Count 10.9 thou/uL (4.8-10.8)
[2021-12-19 07:58] LABS: ALT (SGPT) 8 U/L (8-55); AST (SGOT) 10 U/L (5-34); Albumin 3.2 g/dL (3.5-5.0); Alkaline Phosphatase 85 U/L (40-110); Anion Gap 15 mmol/L (10-20); BUN (Urea Nitrogen) 32 mg/dL (7.0-18.7); Bilirubin, Total 0.2 mg/dL (0.2-1.2); Calc. Creatinine Clearance 43 mL/min (70-130); Calcium 8.1 mg/dL (7.8-10.44); Carbon Dioxide 28 mmol/L (22-29); Chloride 101 mmol/L (98-107); Glucose 126 mg/dL (70-105); Magnesium 1.8 mg/dL (1.6-2.6); Potassium 4.8 mmol/L (3.5-5.1); Protein, Total 7.2 g/dL (6.0-8.3); Sodium 139 mmol/L (136-145)
[2021-12-19] MEDS: Gabapentin 300 MG CAP PO SCH ×2 (08:21→20:47)
[2021-12-19] MEDS: Metoclopramide HCl 10 MG TAB PO SCH ×4 (08:21→20:47)
[2021-12-19] MEDS: Aspirin 81 mg Enteric Coated Tablet PO SCH (08:21)
[2021-12-19] MEDS: NIFEdipine XL 60 MG TAB PO SCH (08:21)
[2021-12-19] MEDS: Folic Acid 1 MG TAB PO SCH (08:21)
[2021-12-19] MEDS: Ferrous Sulfate 325 MG TAB PO SCH ×2 (08:21→20:46)
[2021-12-19] MEDS: Nystatin Powder 15 GM BOT TOP SCH ×2 (08:22→20:47)
[2021-12-19] MEDS: HumuLIN 70/30 (300 UNITS/3 ML VIAL) SC SCH ×2 (08:22→16:52)
[2021-12-19] MEDS: Enoxaparin Sodium 30 MG/0.3 ML SYRINGE SC SCH (08:22)
[2021-12-19] MEDS: Triple Antibiotic Oint 1 GM Packet TOP SCH (08:22)
[2021-12-19] MEDS: guaiFENesin ER 600 MG TAB PO SCH ×2 (08:22→20:47)
[2021-12-19] MEDS: Torsemide 100 MG TAB PO SCH (08:25)
[2021-12-19] MEDS: traMADol HCl 50 MG TAB PO PRN (08:25)
[2021-12-19] MEDS ORDERED: traMADol HCl 50 MG TAB PO PRN (14:49)
[2021-12-19] MEDS ORDERED: Acetaminophen/Codeine 30-300mg Tablet PO PRN (14:50)
[2021-12-19] MEDS: Amitriptyline HCl 25 MG TAB PO SCH (20:46)
[2021-12-19] MEDS: Atorvastatin Calcium 20 MG TAB PO SCH (20:46)
[2021-12-19] MEDS: Famotidine 20 MG TAB PO SCH (20:46)
[2021-12-20 06:34] LABS: #Eosinphils 0.5 thou/uL (0.0-0.7); #Lymphocytes 3.8 thou/uL (1.20-3.40); #Monocytes 1.5 thou/uL (0.11-0.59); %Basophils 0.3 % (0.0-1.0); %Eosinophils 3.8 % (0.0-10.0); %Lymphocytes 32.1 % (21.0-51.0); %Monocytes 12.8 % (0.0-10.0); Hemoglobin 9.4 g/dL (12.0-16.0); Mean Corpuscular HGB CONC 29.8 g/dL (32.0-36.0); Mean Corpuscular Hemoglobin 30.2 pg (27.0-31.0); Mean Platelet Volume 7.5 fL (7.4-10.4); Platelet Count 293 thou/uL (130-400); RBC Distribution Width 14.1 % (11.5-14.5); Red Blood Cell (RBC) Count 3.13 mill/uL (4.20-5.40); White Blood Cell (WBC) Count 11.9 thou/uL (4.8-10.8)
[2021-12-20 06:59] LABS: ALT (SGPT) 8 U/L (8-55); AST (SGOT) 11 U/L (5-34); Albumin 3.2 g/dL (3.5-5.0); Alkaline Phosphatase 89 U/L (40-110); Anion Gap 18 mmol/L (10-20); BUN (Urea Nitrogen) 43 mg/dL (7.0-18.7); Bilirubin, Total 0.2 mg/dL (0.2-1.2); Calc. Creatinine Clearance 37 mL/min (70-130); Calcium 8.3 mg/dL (7.8-10.44); Carbon Dioxide 23 mmol/L (22-29); Chloride 101 mmol/L (98-107); Globulin 4.2 g/dL (2.4-3.5); Glucose 142 mg/dL (70-105); Magnesium 1.9 mg/dL (1.6-2.6); Potassium 4.8 mmol/L (3.5-5.1); Protein, Total 7.4 g/dL (6.0-8.3); Sodium 137 mmol/L (136-145)
[2021-12-20 08:02] VITALS: BP 90/61; TEMP 98.8
[2021-12-20] MEDS ORDERED: Heparin 10,000 UNITS/ 10 ML VIAL ONE (08:39)
[2021-12-20] MEDS: HumuLIN 70/30 (300 UNITS/3 ML VIAL) SC SCH (09:45)
[2021-12-20] MEDS: Metoclopramide HCl 10 MG TAB PO SCH ×2 (09:46→13:36)
[2021-12-20] MEDS: guaiFENesin ER 600 MG TAB PO SCH (09:46)
[2021-12-20] MEDS: Ferrous Sulfate 325 MG TAB PO SCH (09:46)
[2021-12-20] MEDS: Nystatin Powder 15 GM BOT TOP SCH (09:46)
[2021-12-20] MEDS: Carvedilol 25 MG TAB PO SCH (09:46)
[2021-12-20] MEDS: Gabapentin 300 MG CAP PO SCH (09:46)
[2021-12-20] MEDS: Aspirin 81 mg Enteric Coated Tablet PO SCH (13:56)
[2021-12-20] MEDS: Folic Acid 1 MG TAB PO SCH (13:56)
[2021-12-20] MEDS: Enoxaparin Sodium 30 MG/0.3 ML SYRINGE SC SCH (13:56)
[2021-12-20] MEDS: Triple Antibiotic Oint 1 GM Packet TOP SCH (13:57)
[2021-12-20] MEDS: Torsemide 100 MG TAB PO SCH (13:59)
[2021-12-20] MEDS: Epoetin (ESRD) 10,000 UNITS/ML VIAL SC SCH (13:59)
== END 2021-12-20 17:05 | disposition home or self-care (01) | DRG 640 ==
LOC: ERS 09:43 → ERHOLD 12:03 → 2NO 15:28 → T4-B 12-11 23:48
PROVIDERS: ADMIT Internal Medicine; ATTEND Internal Medicine
PROC: 5A1D70Z Performance of Urinary Filtration, Intermittent, Less than 6 Hours Per Day (ICD-10-PCS; principal; 2021-12-06)
DX: E87.70 Fluid overload, unspecified (principal); N18.6 End stage renal disease; E66.2 Morbid (severe) obesity with alveolar hypoventilation; I50.32 Chronic diastolic (congestive) heart failure; Z68.44 Body mass index [BMI] 60.0-69.9, adult; T82.868A Thrombosis due to vascular prosthetic devices, implants and grafts, initial encounter; E87.5 Hyperkalemia; E11.22 Type 2 diabetes mellitus with diabetic chronic kidney disease; Z20.822 Contact with and (suspected) exposure to COVID-19; E78.5 Hyperlipidemia, unspecified; I11.0 Hypertensive heart disease with heart failure; D63.1 Anemia in chronic kidney disease; Z99.2 Dependence on renal dialysis; Z88.8 Allergy status to other drugs, medicaments and biological substances; Z79.82 Long term (current) use of aspirin; Z79.4 Long term (current) use of insulin; Z79.899 Other long term (current) drug therapy; Z90.49 Acquired absence of other specified parts of digestive tract; Z98.51 Tubal ligation status; Z98.890 Other specified postprocedural states; Z83.3 Family history of diabetes mellitus; D50.9 Iron deficiency anemia, unspecified; Z74.01 Bed confinement status; Y84.1 Kidney dialysis as the cause of abnormal reaction of the patient, or of later complication, without mention of misadventure at the time of the procedure
CPT/HCPCS: 36415; 36416; 71045; 80048; 80053; 80069; 82550; 82607; 82746; 83690; 83735; 83880; 84484; 85025; 85027; 86706; 87340; 90935; 93005; 94760; G0257; J1644; J1650; J1815; Q4081; Q5105; U0003; U0005

== ENCOUNTER 2021-12-27 08:41 | Emergency (ER) | payer OTHER ==
[2021-12-27] MEDS ORDERED: Ondansetron PF 4 MG/2 ML Vial ONE (09:56)
[2021-12-27 11:15] LABS: #Basophils 0.1 thou/uL (0.0-0.2); #Eosinphils 0.1 thou/uL (0.0-0.7); #Lymphocytes 1.8 thou/uL (1.20-3.40); #Monocytes 0.5 thou/uL (0.11-0.59); #Neutrophils 10.2 thou/uL (1.40-6.50); %Basophils 0.4 % (0.0-1.0); %Eosinophils 0.7 % (0.0-10.0); %Lymphocytes 14.6 % (21.0-51.0); %Monocytes 3.6 % (0.0-10.0); %Neutrophils 80.7 % (42.0-75.0); Hemoglobin 12.3 g/dL (12.0-16.0); Mean Corpuscular Hemoglobin 30.6 pg (27.0-31.0); Platelet Count 250 thou/uL (130-400); White Blood Cell (WBC) Count 12.7 thou/uL (4.8-10.8)
[2021-12-27 11:22] LABS: ALT (SGPT) 11 U/L (8-55); AST (SGOT) 15 U/L (5-34); Albumin 3.9 g/dL (3.5-5.0); Alkaline Phosphatase 98 U/L (40-110); Anion Gap 22 mmol/L (10-20); BUN (Urea Nitrogen) 29 mg/dL (7.0-18.7); Bilirubin, Total 0.3 mg/dL (0.2-1.2); Calc. Creatinine Clearance 0 mL/min (70-130); Calcium 9.6 mg/dL (7.8-10.44); Carbon Dioxide 22 mmol/L (22-29); Chloride 98 mmol/L (98-107); Globulin 5.3 g/dL (2.4-3.5); Glucose 202 mg/dL (70-105); Lipase 21 U/L (8-78); Potassium 4.2 mmol/L (3.5-5.1); Protein, Total 9.2 g/dL (6.0-8.3); Sodium 138 mmol/L (136-145)
[2021-12-27 11:36] LABS: Band 2 % (5-11); Lymphocytes 12 % (21-51); MDiff Complete? YES; Monocytes 6 % (0-10); Neutrophil 80 % (42-75); Nucleated RBC 1 % (0); RBC Morphology Normal
[2021-12-27] MEDS ORDERED: Metoclopramide HCl 10 MG TAB ONE (11:54)
[2021-12-27 13:23] LABS: SARS-CoV-2 NAA Rapid Test Not Detected (NotDetected)
== END 2021-12-27 12:18 | disposition home or self-care (01) ==
LOC: ERS 08:41
DX: R11.2 Nausea with vomiting, unspecified (principal); R00.0 Tachycardia, unspecified; I13.2 Hypertensive heart and chronic kidney disease with heart failure and with stage 5 chronic kidney disease, or end stage renal disease; E11.22 Type 2 diabetes mellitus with diabetic chronic kidney disease; N18.6 End stage renal disease; I50.9 Heart failure, unspecified; E78.5 Hyperlipidemia, unspecified; E78.00 Pure hypercholesterolemia, unspecified; I48.91 Unspecified atrial fibrillation; Z20.822 Contact with and (suspected) exposure to COVID-19; Z99.2 Dependence on renal dialysis; Z79.82 Long term (current) use of aspirin; Z79.899 Other long term (current) drug therapy
CPT/HCPCS: 36415; 80053; 82550; 83690; 84484; 85025; 93005; 96361; 96374; J2405; U0002

== ENCOUNTER 2022-01-15 12:11 | Outpatient (CLI) | payer OTHER | END 2022-01-15 12:12 | disposition home or self-care (01) | LOC: LABBT 12:11 | PROVIDERS: ATTEND Specialist | DX: Z20.822 Contact with and (suspected) exposure to COVID-19 (principal) | CPT/HCPCS: U0003; U0005 ==

== ENCOUNTER 2022-01-16 14:08 | Emergency (ER) | payer OTHER ==
[~2022-01-16 14:08] MED LIST changes: -Heparin 10,000 UNITS/ 10 ML VIAL ONE; +ISOVUE-370 76%-LOCM 1 ML ONE
[2022-01-16 14:56] LABS: #Eosinphils 0.3 thou/uL (0.0-0.7); #Monocytes 1.2 thou/uL (0.11-0.59); #Neutrophils 10.3 thou/uL (1.40-6.50); %Basophils 0.3 % (0.0-1.0); %Eosinophils 1.9 % (0.0-10.0); %Neutrophils 69.7 % (42.0-75.0); Hemoglobin 12.4 g/dL (12.0-16.0); Mean Corpuscular HGB CONC 29.7 g/dL (32.0-36.0); Mean Corpuscular Hemoglobin 30.6 pg (27.0-31.0); Mean Platelet Volume 8.9 fL (7.4-10.4); Platelet Count 241 thou/uL (130-400); RBC Distribution Width 15.9 % (11.5-14.5); Red Blood Cell (RBC) Count 4.04 mill/uL (4.20-5.40); White Blood Cell (WBC) Count 14.8 thou/uL (4.8-10.8)
[2022-01-16 15:21] LABS: ALT (SGPT) 10 U/L (8-55); AST (SGOT) 11 U/L (5-34); Albumin 3.9 g/dL (3.5-5.0); Alkaline Phosphatase 88 U/L (40-110); Anion Gap 23 mmol/L (10-20); BUN (Urea Nitrogen) 29 mg/dL (7.0-18.7); Bilirubin, Total 0.4 mg/dL (0.2-1.2); Calc. Creatinine Clearance 0 mL/min (70-130); Calcium 9.8 mg/dL (7.8-10.44); Carbon Dioxide 24 mmol/L (22-29); Chloride 95 mmol/L (98-107); Globulin 4.8 g/dL (2.4-3.5); Glucose 266 mg/dL (70-105); Lipase 23 U/L (8-78); Magnesium 2.1 mg/dL (1.6-2.6); Potassium 3.2 mmol/L (3.5-5.1); Protein, Total 8.7 g/dL (6.0-8.3); Sodium 139 mmol/L (136-145)
[2022-01-16] MEDS ORDERED: Ondansetron PF 4 MG/2 ML Vial ONE (15:41)
[2022-01-17] MEDS ORDERED: Polyethylene Glycol 3350 17 GM Packet PO SCH (09:00)
== END 2022-01-16 18:57 | disposition home or self-care (01) ==
LOC: ERS 14:08
DX: R11.2 Nausea with vomiting, unspecified (principal); E11.22 Type 2 diabetes mellitus with diabetic chronic kidney disease; I13.2 Hypertensive heart and chronic kidney disease with heart failure and with stage 5 chronic kidney disease, or end stage renal disease; N18.6 End stage renal disease; E78.5 Hyperlipidemia, unspecified; E78.00 Pure hypercholesterolemia, unspecified; I48.91 Unspecified atrial fibrillation; I50.9 Heart failure, unspecified; Z79.82 Long term (current) use of aspirin; Z79.899 Other long term (current) drug therapy; Z20.822 Contact with and (suspected) exposure to COVID-19
CPT/HCPCS: 36415; 74177; 80053; 83690; 83735; 85025; 93005; 94760; 96374; J2405; Q9966; U0003; U0005

== ENCOUNTER 2022-01-18 08:13 | Inpatient (IN) | payer OTHER ==
[~2022-01-18 08:13] MED LIST changes: +Heparin 10,000 UNITS/ 10 ML VIAL ONE; -ISOVUE-370 76%-LOCM 1 ML ONE
[2022-01-18 12:06] LABS: #Eosinphils 0.2 thou/uL (0.0-0.7); #Lymphocytes 2.6 thou/uL (1.20-3.40); #Monocytes 0.9 thou/uL (0.11-0.59); %Basophils 0.2 % (0.0-1.0); %Eosinophils 1.8 % (0.0-10.0); %Lymphocytes 23.8 % (21.0-51.0); %Monocytes 8.5 % (0.0-10.0); %Neutrophils 65.7 % (42.0-75.0); Hemoglobin 12.1 g/dL (12.0-16.0); Mean Corpuscular Hemoglobin 30.3 pg (27.0-31.0); Mean Platelet Volume 8.6 fL (7.4-10.4); Platelet Count 263 thou/uL (130-400); RBC Distribution Width 15.7 % (11.5-14.5); Red Blood Cell (RBC) Count 3.99 mill/uL (4.20-5.40); White Blood Cell (WBC) Count 10.7 thou/uL (4.8-10.8)
[2022-01-18 12:10] LABS: Anion Gap 25 mmol/L (10-20); BUN (Urea Nitrogen) 39 mg/dL (7.0-18.7); Calc. Creatinine Clearance 15 mL/min (70-130); Carbon Dioxide 21 mmol/L (22-29); Chloride 95 mmol/L (98-107); Glucose 235 mg/dL (70-105); Potassium 3.2 mmol/L (3.5-5.1); Sodium 138 mmol/L (136-145)
[2022-01-18] MEDS ORDERED: HumaLOG 300 UNITS/3 ML VIAL SC PRN (14:27)
[2022-01-18] MEDS ORDERED: traMADol HCl 50 MG TAB PO PRN ×2 (14:27→14:34)
[2022-01-18] MEDS ORDERED: Dextrose 5% in Water 1,000 ML IV PRN (14:27)
[2022-01-18] MEDS ORDERED: Dextrose 50% Abboject 50 ML SYRINGE SLOW IVP PRN (14:27)
[2022-01-18] MEDS ORDERED: Metoclopramide HCl 10 MG TAB PO PRN (14:34)
[2022-01-18] MEDS ORDERED: Senokot S 8.6-50 MG TAB PO PRN (14:34)
[2022-01-18] MEDS ORDERED: Bupivacaine PF 0.5% 30 ML VIAL ONE (14:44)
[2022-01-18] MEDS ORDERED: Lidocaine 1% w/Epinephrine 1:100K 20 ML VIAL ONE (14:44)
[2022-01-18] MEDS ORDERED: fentaNYL Citrate/PF 100 MCG/2 ML SYRINGE ONE (14:45)
[2022-01-18] MEDS ORDERED: Heparin 10,000 UNITS/ 10 ML VIAL ONE (14:58)
[2022-01-18] MEDS ORDERED: Heparin 5,000 UNITS/ML VIAL CATH SCH (16:45)
[2022-01-18] MEDS ORDERED: Heparin 5,000 UNITS/ML VIAL ONE (16:49)
[2022-01-18 17:16] LABS: Hemoglobin A1c 6.9 % (4.0-6.0)
[2022-01-18] MEDS: Ondansetron ODT 4 MG TAB PO PRN ×2 (18:38→22:41)
[2022-01-18 19:03] LABS: Hep B Core Total Ab Non-Reactive (NonReactive); Hep B Core Total Index 0.19 S/CO (0-0.79)
[2022-01-18 19:04] LABS: HBSAg Index 0.33 S/CO (0-0.99); Hep B Surf Ag Non-Reactive S/CO (NonReactive)
[2022-01-18 19:05] LABS: HBSAB Concentration Less than 8.00 mIU/mL; Hep B Surf AB Non-Reactive (NonReactive)
[2022-01-18 19:06] LABS: Hep C IgG Ab Non-Reactive (NonReactive); Hep C Index 0.13 S/CO (0-0.79)
[2022-01-18] MEDS ORDERED: Famotidine 20 MG TAB PO SCH (21:00)
[2022-01-18] MEDS ORDERED: Amitriptyline HCl 25 MG TAB PO SCH (21:00)
[2022-01-18] MEDS ORDERED: cloNIDine 0.2 MG TAB PO SCH (21:00)
[2022-01-18] MEDS ORDERED: Atorvastatin Calcium 20 MG TAB PO SCH (21:00)
[2022-01-18] MEDS: Gabapentin 300 MG CAP PO SCH (22:47)
[2022-01-18] MEDS: Ferrous Sulfate 325 MG TAB PO SCH (22:48)
[2022-01-18] MEDS: Heparin 5,000 UNITS/ML VIAL SC SCH ×2 (22:50→23:05)
[2022-01-18] MEDS: Carvedilol 25 MG TAB PO SCH (23:04)
[2022-01-18] MEDS: HumuLIN 70/30 (300 UNITS/3 ML VIAL) SC SCH (23:05)
[2022-01-18] MEDS: Nystatin Powder 15 GM BOT TOP SCH (23:05)
[2022-01-18 23:09] VITALS: BMI 56.9
[2022-01-19 07:03] LABS: #Lymphocytes 2.1 thou/uL (1.20-3.40); %Basophils 0.3 % (0.0-1.0); %Eosinophils 0.3 % (0.0-10.0); %Lymphocytes 18.7 % (21.0-51.0); %Monocytes 8.6 % (0.0-10.0); %Neutrophils 72.1 % (42.0-75.0); Hemoglobin 11.6 g/dL (12.0-16.0); Mean Corpuscular HGB CONC 29.3 g/dL (32.0-36.0); Mean Corpuscular Hemoglobin 30.2 pg (27.0-31.0); Mean Platelet Volume 8.8 fL (7.4-10.4); Platelet Count 200 thou/uL (130-400); Red Blood Cell (RBC) Count 3.86 mill/uL (4.20-5.40)
[2022-01-19 07:13] LABS: ALT (SGPT) Less than 7 U/L (8-55); AST (SGOT) 12 U/L (5-34); Albumin 3.5 g/dL (3.5-5.0); Alkaline Phosphatase 83 U/L (40-110); Anion Gap 18 mmol/L (10-20); BUN (Urea Nitrogen) 22 mg/dL (7.0-18.7); Bilirubin, Direct 0.2 mg/dL (0.1-0.3); Bilirubin, Total 0.3 mg/dL (0.2-1.2); Calc. Creatinine Clearance 23 mL/min (70-130); Calcium 8.3 mg/dL (7.8-10.44); Carbon Dioxide 27 mmol/L (22-29); Cardiac Risk 2.9 (Less than 4.5); Chloride 95 mmol/L (98-107); Cholesterol 180 mg/dl (< 200 Desired); Glucose 162 mg/dL (70-105); HDL Cholesterol 63 mg/dL (>60 Neg Risk); LDL Cholesterol, Calculated 84 mg/dL; Potassium 3.4 mmol/L (3.5-5.1); Sodium 137 mmol/L (136-145); Triglycerides 163 mg/dL (Less than 150)
[2022-01-19] MEDS ORDERED: Potassium Chloride 20 MEQ TAB PO SCH (08:00)
[2022-01-19] MEDS ORDERED: Bisacodyl 10 MG SUPP PR SCH (08:45)
[2022-01-19] MEDS ORDERED: Aspirin 81 mg Enteric Coated Tablet PO SCH (09:00)
[2022-01-19] MEDS ORDERED: NIFEdipine XL 60 MG TAB PO SCH (09:00)
[2022-01-19] MEDS: Gabapentin 300 MG CAP PO SCH (09:30)
[2022-01-19] MEDS: Carvedilol 25 MG TAB PO SCH (09:30)
[2022-01-19] MEDS: Ferrous Sulfate 325 MG TAB PO SCH ×2 (09:30→10:41)
[2022-01-19] MEDS: Heparin 5,000 UNITS/ML VIAL SC SCH (09:31)
[2022-01-19] MEDS: HumuLIN 70/30 (300 UNITS/3 ML VIAL) SC SCH (09:31)
[2022-01-19] MEDS: Nystatin Powder 15 GM BOT TOP SCH (09:32)
[2022-01-19 11:17] VITALS: TEMP 97.8
[2022-01-19 13:12] VITALS: BP 116/72
[2022-01-19] MEDS ORDERED: Famotidine 20 MG TAB PO SCH (21:00)
[2022-01-20] MEDS ORDERED: NIFEdipine XL 60 MG TAB PO SCH (09:00)
[2022-01-25] MEDS ORDERED: Ergocalciferol 1.25 MG(50,000 UNITS) CAP PO SCH (09:00)
== END 2022-01-19 13:52 | disposition home or self-care (01) | DRG 314 ==
LOC: SDC 08:13 → T4-B 14:36
PROVIDERS: ADMIT Internal Medicine; ATTEND Specialist
PROC: 5A1D70Z Performance of Urinary Filtration, Intermittent, Less than 6 Hours Per Day (ICD-10-PCS; principal; 2022-01-18)
PROC: 02HV33Z Insertion of Infusion Device into Superior Vena Cava, Percutaneous Approach (ICD-10-PCS; 2022-01-18)
PROC: 05PYX3Z Removal of Infusion Device from Upper Vein, External Approach (ICD-10-PCS; 2022-01-18)
PROC: B5181ZA Fluoroscopy of Superior Vena Cava using Low Osmolar Contrast, Guidance (ICD-10-PCS; 2022-01-18)
PROC: 5A09357 Assistance with Respiratory Ventilation, Less than 24 Consecutive Hours, Continuous Positive Airway Pressure (ICD-10-PCS; 2022-01-18)
DX: T82.868A Thrombosis due to vascular prosthetic devices, implants and grafts, initial encounter (principal); N18.6 End stage renal disease; E66.2 Morbid (severe) obesity with alveolar hypoventilation; Z68.43 Body mass index [BMI] 50.0-59.9, adult; I50.32 Chronic diastolic (congestive) heart failure; Y83.2 Surgical operation with anastomosis, bypass or graft as the cause of abnormal reaction of the patient, or of later complication, without mention of misadventure at the time of the procedure; E78.5 Hyperlipidemia, unspecified; E11.22 Type 2 diabetes mellitus with diabetic chronic kidney disease; E87.6 Hypokalemia; I11.0 Hypertensive heart disease with heart failure; D63.1 Anemia in chronic kidney disease; K29.00 Acute gastritis without bleeding; K59.00 Constipation, unspecified; Z99.89 Dependence on other enabling machines and devices; Z99.2 Dependence on renal dialysis; Z88.8 Allergy status to other drugs, medicaments and biological substances; Z79.899 Other long term (current) drug therapy; Z79.4 Long term (current) use of insulin; Z79.82 Long term (current) use of aspirin; Z90.89 Acquired absence of other organs; Z90.49 Acquired absence of other specified parts of digestive tract; Z98.51 Tubal ligation status; Z89.432 Acquired absence of left foot; Z83.3 Family history of diabetes mellitus
CPT/HCPCS: 36415; 36416; 71045; 80048; 80061; 80076; 83036; 83735; 84443; 85025; 86704; 87340; C1752; J1642; J1644; J1815; Q0162; S0020

== ENCOUNTER 2022-01-24 06:29 | Day surgery (SDC) | payer OTHER ==
[2022-01-23 14:58] VITALS: BMI 56.5
[2022-01-24 08:11] LABS: Hemoglobin 10.4 g/dL (12.0-16.0); Mean Corpuscular HGB CONC 29.7 g/dL (32.0-36.0); Mean Corpuscular Hemoglobin 30.7 pg (27.0-31.0); Mean Platelet Volume 9.2 fL (7.4-10.4); Platelet Count 197 thou/uL (130-400); RBC Distribution Width 15.1 % (11.5-14.5); Red Blood Cell (RBC) Count 3.38 mill/uL (4.20-5.40); White Blood Cell (WBC) Count 10.3 thou/uL (4.8-10.8)
[2022-01-24 08:12] LABS: #Eosinphils 0.3 thou/uL (0.0-0.7); #Lymphocytes 1.8 thou/uL (1.20-3.40); #Monocytes 1.5 thou/uL (0.11-0.59); #Neutrophils 6.6 thou/uL (1.40-6.50); %Basophils 0.3 % (0.0-1.0); %Eosinophils 3.2 % (0.0-10.0); %Lymphocytes 17.7 % (21.0-51.0); %Monocytes 14.4 % (0.0-10.0); %Neutrophils 64.5 % (42.0-75.0)
[2022-01-24 08:20] LABS: Anion Gap 17 mmol/L (10-20); BUN (Urea Nitrogen) 38 mg/dL (7.0-18.7); Calc. Creatinine Clearance 29 mL/min (70-130); Calcium 8.2 mg/dL (7.8-10.44); Carbon Dioxide 26 mmol/L (22-29); Chloride 98 mmol/L (98-107); Estimated GFR 8; Glucose 342 mg/dL (70-105); Potassium 3.5 mmol/L (3.5-5.1); Sodium 137 mmol/L (136-145)
[2022-01-24] MEDS ORDERED: Protamine Sulfate 50 MG/5 ML VIAL ONE (10:24)
[2022-01-24] MEDS ORDERED: Lidocaine 1% w/Epinephrine 1:100K 20 ML VIAL ONE (10:24)
[2022-01-24] MEDS ORDERED: Heparin 5,000 UNITS/ML VIAL ONE (10:24)
[2022-01-24] MEDS ORDERED: Bupivacaine PF 0.5% 30 ML VIAL ONE (10:24)
[2022-01-24] MEDS ORDERED: fentaNYL Citrate/PF 100 MCG/2 ML SYRINGE ONE (10:25)
[2022-01-24] MEDS ORDERED: Midazolam HCl 2 mg/2 ml Vial ONE (10:25)
[2022-01-24] MEDS ORDERED: Ketamine 50 MG/ML (10ML VIAL) ONE (10:25)
[2022-01-24] MEDS ORDERED: Sodium Chloride 0.9% 100 ML ONE (10:33)
[2022-01-24] MEDS ORDERED: CEFAZOLIN 2 GM VIAL ONE (10:33)
[2022-01-24] MEDS ORDERED: Bupivacaine HCl 0.5%/Epinephrine 1:200,000/PF 30 ml Vial ONE (10:53)
[2022-01-24] MEDS ORDERED: Glycopyrrolate 0.2 MG/ML 5 ML SYRINGE ONE (10:53)
[2022-01-24] MEDS ORDERED: Heparin 1,000 UNITS/ML VIAL ONE (14:42)
== END 2022-01-24 15:50 | disposition home or self-care (01) ==
LOC: SDC 06:29
PROVIDERS: ATTEND Specialist
PROC: 03170JD Bypass Right Brachial Artery to Upper Arm Vein with Synthetic Substitute, Open Approach (ICD-10-PCS; principal; 2022-01-24)
DX: I12.0 Hypertensive chronic kidney disease with stage 5 chronic kidney disease or end stage renal disease (principal); E11.22 Type 2 diabetes mellitus with diabetic chronic kidney disease; N18.6 End stage renal disease; T82.868A Thrombosis due to vascular prosthetic devices, implants and grafts, initial encounter; E78.5 Hyperlipidemia, unspecified; I48.92 Unspecified atrial flutter; K21.9 Gastro-esophageal reflux disease without esophagitis; E11.43 Type 2 diabetes mellitus with diabetic autonomic (poly)neuropathy; K31.84 Gastroparesis; E66.01 Morbid (severe) obesity due to excess calories; Z68.43 Body mass index [BMI] 50.0-59.9, adult; Z79.4 Long term (current) use of insulin; Z79.82 Long term (current) use of aspirin; Z79.899 Other long term (current) drug therapy; Z88.8 Allergy status to other drugs, medicaments and biological substances; Z99.3 Dependence on wheelchair
CPT/HCPCS: 36416; 80048; 85025; 87811; C1713; C1776; J0690; J1644; J2250; J2720; J3490; L8670; S0020